=== PATIENT | female | born 1975 | race Caucasian/White ===

== ENCOUNTER → 2020-09-22 09:37 | Outpatient (BNVA) | payer OTHER, SELFPAY | PROVIDERS: Visit Provider Advanced Practice Midwife | DX: Z76.89 Persons encountering health services in other specified circumstances (principal) ==

== ENCOUNTER → 2022-05-08 09:32 | Outpatient (BNVA) | payer OTHER, SELFPAY | PROVIDERS: PCP Internal Medicine; Visit Provider Advanced Practice Midwife | DX: N90.7 Vulvar cyst (principal); N93.9 Abnormal uterine and vaginal bleeding, unspecified; R14.0 Abdominal distension (gaseous) | CPT/HCPCS: 99212 ==

== ENCOUNTER 2022-06-18 10:19 | Outpatient (REF) | payer OTHER, SELFPAY ==
--- NOTE | ~2022-06-18 | US_ITS ---
EXAMINATION: US PELVIS CLINICAL INFORMATION: Abnormal uterine and vaginal bleeding. Age 46. COMPARISON: CT pelvis 07/26/2016; pelvic ultrasound 03/25/2014 TECHNIQUE: Ultrasound of the pelvis is performed using both transabdominal and transvaginal transducers along with Doppler. Transvaginal imaging is performed due to inadequate visualization transabdominally. FINDINGS: Uterus: The uterus is anteverted and normal in size measuring 7.5 x 4.1 x 5.4 cm. Volume 87 mL. The double wall endometrial thickness is normal, measuring 3 mm. The uterus is smooth in contour. There is no exophytic fibroid. There is scattered inhomogeneous coarsening of the myometrial echotexture. No focal circumscribed fibroid associated. No venetian blind shadowing or focal myometrial cysts to confirm adenomyosis. There are some small nabothian cysts in the cervix. Adnexa: Right ovary measures 2.8 x 1.8 x 1.9 cm. Volume 5 mL. Incidental dominant follicle measuring 1.3 cm. Left ovary measures 2.9 x 2.5 x 2.5 cm. Volume 9.5 mL. There are scattered non-shadowing specular echoes in the left ovary which may suggest poorly mineralized benign dystrophic calcifications. There are some cystic foci. The area of involvement measures 2.6 x 2.0 cm. There is no definable clearly circumscribed mass in the ovary. No hypoechoic foci noted on prior ultrasound [address] 2015. There is trace physiologic fluid in cul-de-sac. No overt ascites. US/US pelvic and transvaginal IMPRESSION: Uterus: -Inhomogeneous coarsening myometrial echotexture without shadowing or myometrial cysts to confirm adenomyosis. No visible circumscribed fibroid. -Normal double wall endometrial thickness is under 4 mm. Adnexa: -Left ovary: Scattered non-shadowing specular echoes and some cystic foci without circumscribed mass. Right ovary unremarkable. No ascites. -Pelvic MRI may be helpful for further characterization of the uterus and left ovary.
--- NOTE | ~2022-06-18 | MM_ITS ---
EXAMINATION: MM DIAGNOSTIC DIGITAL BREAST TOMOSYNTHESIS, BILATERAL US DIAGNOSTIC ULTRASOUND BREAST, RIGHT CLINICAL INFORMATION: At time of screening exam, patient notes palpable areas and tenderness right breast. Implants have been placed since prior mammography 2019. TC score 7%. COMPARISON: Mammography: 10/27/2019, 10/20/2019, 04/25/2018 TECHNIQUE: Digital mammography is performed in craniocaudal and mediolateral oblique views along with computer-aided detection (CAD). Digital breast tomosynthesis is performed in implant-displaced craniocaudal and implant-displaced mediolateral oblique views along with computer-aided detection (CAD). Synthesized 2D images are generated from the tomosynthesis. Ultrasound right breast is targeted to the areas of palpable concern lower and outer quadrants. Grayscale imaging and color Doppler are performed without and with harmonics. Patient is able to point areas of clinical concern at time of imaging. FINDINGS: The breasts are heterogeneously dense, which may obscure small masses (ACR BI-RADS breast composition Category c). There is fine fibronodular parenchymal pattern similar to prior studies. There are bilateral implants, new from prior exam 2019. Implant contours are smooth. No abnormal calcifications. The axilla and skin contours are unremarkable. Left breast shows no interval mass or architectural abnormality. Right breast has smooth circumscribed mass outer quadrant corresponding to the palpable concern, the larger 1.4 cm and smaller more posterior mass measuring 0.8 cm. No architectural abnormality. Ultrasound right breast demonstrates 4 cysts, the largest corresponding to palpable concern 7:00-8:00 position mid depth measuring 1.4 x 1.2 cm. Margins are circumscribed, cyst is anechoic, increased through-transmission of sound, and no associated color flow. The next largest cyst is slightly more posterior measuring 0.8 x 0.5 cm. There are 2 smaller satellite cysts, each under 4 mm. No solid mass or architectural abnormality. Results are discussed with the patient at time of visit. MM/MM tomosynthesis diagnostic BI IMPRESSION: -No mammographic evidence of malignancy. New implants since prior exam 2019. -Simple cysts right breast corresponding to clinical concern, largest 1.4 cm. ASSESSMENT: BI-RADS 2: Benign RECOMMENDATION: Routine annual mammography screening. This patient's information was entered into a reminder system with a target due date for their next mammogram.
[2022-06-18 12:34] LABS: Hematocrit 40.6 % (37.0-47.0); Hemoglobin 13.1 g/dl (12.0-16.0); Mean Corpuscular HGB Conc 32.3 g/dl (31.0-35.0); Mean Corpuscular Volume 92.9 fL (80.0-98.0); Mean Platelet Volume 11.5 fL (9.4-12.3); Platelet Count 239 X10*3/uL (160-400); Red Blood Count 4.37 X10*6/uL (4.20-5.50); Red Cell Distribution Width 12.7 % (11.0-16.0); White Blood Count 7.8 X10*3/uL (4.8-10.8)
[2022-06-18 13:18] LABS: Thyroid Stimulating Hormone 0.97 uIU/mL (0.32-4.0)
== END 2022-06-18 10:20 | disposition home or self-care (01) ==
LOC: HO.US 10:19
PROVIDERS: PCP Internal Medicine; Visit Provider Advanced Practice Midwife
DX: N60.01 Solitary cyst of right breast (principal); N92.1 Excessive and frequent menstruation with irregular cycle; N93.9 Abnormal uterine and vaginal bleeding, unspecified; R14.0 Abdominal distension (gaseous)
CPT/HCPCS: 36415; 76642; 76830; 76856; 77062; 77063; 77066; 77067; 84443; 85027

== ENCOUNTER 2022-07-30 08:18 | Outpatient (REF) | payer OTHER, SELFPAY ==
--- NOTE | ~2022-07-30 | MR_ITS ---
EXAMINATION: MRI PELVIS WITH AND WITHOUT CONTRAST CLINICAL INFORMATION: Further evaluation of abnormalities noted in the uterus and left ovary on a recent ultrasound. COMPARISON: Pelvic ultrasound 06/18/2022. TECHNIQUE: Multiple routine MRI sequences through the pelvis were obtained on a high-field 1.5 Bibi MRI before and after the uneventful administration of 7.5 mL Gadavist gadolinium-based IV contrast. FINDINGS: UTERUS: Anteverted uterus has a normal configuration and measures 7.8 cm [id number] x 5.0 cm anterior-posterior x 5.6 cm transverse. There is scarring in the anteroinferior uterus, suggesting prior , correlate with surgical history. The junctional zone is not entirely well delineated but overall does not appear to be abnormally thickened. No focal uterine mass seen. The endometrium measures up to 0.6 cm in thickness. CERVIX: Subcentimeter nabothian cysts. VAGINA: Normal; no mass seen. OVARIES: Ovaries are symmetric in size. In the left ovary, there is a nonspecific 1.8 x 1.2 cm T2 dark observation (7:8) that it is isointense to the ovarian stroma on T1 precontrast images, and demonstrates some subtle hyper enhancement when compared to the adjacent stroma on postcontrast images (9:12). In the left ovary, there is a subtle T2 bright avascular simple cyst (7:8), for which no imaging follow-up is recommended. In the right ovary, there is a 1.3 cm T2 bright lesion (7:8) with a peripheral T2 dark rim and signal hyperintensity on T1 precontrast images, nonspecific but possibly representing a hemorrhagic cyst or adenomyoma. Additionally, in the right ovary, there is a 1.3 cm T2 bright avascular cyst (7:9) and a 1.6 cm rim-enhancing corpus luteal cyst (9:13) for which no further imaging follow-up is recommended. KIDNEYS: Two normally positioned kidneys are seen. No hydronephrosis. There are couple of subcentimeter T2 bright cortical observations in the right kidney, likely representing simple cysts but incompletely characterized in this examination, only visualized in the large ngqle-jd-alwg coronal T2 images. BLADDER: Urinary bladder normal. PELVIC FREE FLUID: Trace amount of free fluid, likely physiologic. LYMPH NODES: No pathologically enlarged lymph nodes. OSSEOUS STRUCTURES: No acute or suspicious osseous abnormalities. MR/MR pelvis wo/w con IMPRESSION: Nonspecific T2 dark observation in the left ovary with some questionable mild hyperenhancement compared to the parenchyma on postcontrast images. This could represent some sort of fibrous lesion such as fibroma/fibrothecoma or just a normal variation of the parenchyma. Recommend a short-term follow-up to reassess. Nonspecific 1.3 cm T1 bright precontrast lesion in the right ovary with T2 bright signal and a peripheral T2 dark rim, suggesting the presence of an endometrioma. Alternatively, could potentially represent a hemorrhagic cyst. Recommend as well a follow-up examination to reassess.
== END 2022-07-30 08:19 | disposition home or self-care (01) ==
LOC: HO.MRI 08:18
PROVIDERS: Visit Provider Advanced Practice Midwife
DX: R93.89 Abnormal findings on diagnostic imaging of other specified body structures (principal)
CPT/HCPCS: 72197; A9585

== ENCOUNTER 2022-08-19 13:39 | Outpatient (REF) | payer OTHER, SELFPAY ==
[2022-08-19 17:07] LABS: CT PCR NOT DETECTED (Not Detect.); NG PCR NOT DETECTED (Not Detect.)
[2022-08-20 12:20] LABS: BV Int Neg Control Negative (Negative); BV Int Pos Control Positive (Positive)
[2022-08-21 12:06] LABS: CA-125 15 U/mL (<35)
[2022-08-23 01:12] LABS: HPV mRNA E6/E7 rflx Not Detected (Not Detected)
== END 2022-08-19 13:40 | disposition home or self-care (01) ==
LOC: HO.LNP 13:39
PROVIDERS: Visit Provider Advanced Practice Midwife
DX: Z01.411 Encounter for gynecological examination (general) (routine) with abnormal findings (principal); Z11.51 Encounter for screening for human papillomavirus (HPV); N89.8 Other specified noninflammatory disorders of vagina; N93.9 Abnormal uterine and vaginal bleeding, unspecified; N83.299 Other ovarian cyst, unspecified side; R14.0 Abdominal distension (gaseous); K61.0 Anal abscess
CPT/HCPCS: 86304; 87480; 87491; 87510; 87591; 87624; 87660; 88142; 99212

== ENCOUNTER 2022-08-19 13:53 | Outpatient (REF) | payer OTHER, SELFPAY | END 2022-08-19 13:54 | disposition home or self-care (01) | LOC: HO.LAB 13:53 | PROVIDERS: PCP Internal Medicine; Visit Provider Advanced Practice Midwife | DX: Z13.89 Encounter for screening for other disorder (principal) ==

== ENCOUNTER → 2022-08-21 09:53 | Outpatient (BNVA) | payer OTHER, SELFPAY | PROVIDERS: PCP Internal Medicine; Referring Provider Advanced Practice Midwife; Visit Provider Surgery | DX: K61.0 Anal abscess (principal) | CPT/HCPCS: 99202 ==

== ENCOUNTER 2023-06-12 09:18 | Outpatient (REF) | payer OTHER, SELFPAY ==
[2023-06-12 11:14] LABS: MANUAL DIFF FLAG NO
[2023-06-12 11:33] LABS: Basophils Absolute Auto 0.1 X10*3/uL (0.0-0.2); Basophils Percent Auto 0.7 % (0-2); Eosinophils Absolute Auto 0.1 X10*3/uL (0.0-0.4); Eosinophils Percent Auto 1.3 % (0-4); Hematocrit 43.2 % (37.0-47.0); Hemoglobin 14.1 g/dl (12.0-16.0); Imm Gran Abs Auto 0.01 X10*3/uL (0.00-0.03); Imm Gran Pct Auto 0.1 % (0.0-0.4); Lymphocytes Absolute Auto 1.5 X10*3/uL (1.2-4.9); Lymphocytes Percent Auto 22.4 % (20-40); Mean Corpuscular HGB Conc 32.6 g/dl (31.0-35.0); Mean Corpuscular Hemoglobin 30.2 pg (27.0-33.0); Mean Corpuscular Volume 92.5 fL (80.0-98.0); Mean Platelet Volume 11.3 fL (9.4-12.3); Monocytes Absolute Auto 0.6 X10*3/uL (0.1-1.2); Monocytes Percent Auto 8.2 % (2-11); Neutrophils Absolute Auto 4.6 x10*3/uL (2.0-8.3); Neutrophils Percent Auto 67.3 % (45-73); Platelet Count 253 X10*3/uL (160-400); Red Blood Count 4.67 X10*6/uL (4.20-5.50); Red Cell Distribution Width 12.7 % (11.0-16.0); White Blood Count 6.9 X10*3/uL (4.8-10.8)
[2023-06-12 12:08] LABS: Alanine Aminotransferase 15 U/L (0-31); Anion Gap 10 (12-20); Aspartate Amino Transferase 18 U/L (5-31); Blood Urea Nitrogen 12 mg/dL (9-16); Calcium 9.2 mg/dL (8.4-10.2); Carbon Dioxide 27 mmol/L (22-29); Chloride 108 mmol/L (96-108); Cholesterol 226 mg/dL; Estimated Glomerular Filt Rate > 60; Glucose Fasting 101 mg/dL (60-99); HDL Cholesterol 61 mg/dL; LDL Cholesterol Calculated 133 mg/dl; Potassium 4.2 mmol/L (3.3-5.1); Sodium 141 mmol/L (135-145); Triglycerides 163 mg/dL
[2023-06-12 12:26] LABS: TSH reflex Free T4 0.89 uIU/mL (0.32-4.0); Vitamin D 25-OH Total 44.4 ng/mL (>30)
[2023-06-12 13:17] LABS: Folate 7.9 ng/mL (> or = 4.0); Vitamin B12 443 pg/mL (200-900)
== END 2023-06-12 09:19 | disposition home or self-care (01) ==
LOC: HO.HMGCLDS 09:18
PROVIDERS: PCP Internal Medicine; Visit Provider Internal Medicine
DX: Z00.01 Encounter for general adult medical examination with abnormal findings (principal); R10.2 Pelvic and perineal pain; L98.9 Disorder of the skin and subcutaneous tissue, unspecified; R00.2 Palpitations; E66.9 Obesity, unspecified; Z87.42 Personal history of other diseases of the female genital tract
CPT/HCPCS: 36415; 80048; 80061; 81003; 81025; 82306; 82607; 82746; 83735; 84443; 84450; 84460; 85025; 99212

== ENCOUNTER 2023-06-12 13:20 | Outpatient (AMB) | payer OTHER, SELFPAY ==
[2023-06-12 13:26] VITALS: BMI 33.8
--- NOTE | 2023-06-12 13:26 | A.OFFVIS_ITS ---
Intake Vital Signs 06/12/23 13:26 Height 5 ft 2 in Weight 185 lb BMI 33.8 Intake Visit Reasons: referral follow up/DO NOT RS/45 Intake Note: The patient agreed to use of a director of graduate medical education during this encounter. Scribed for ORTIZ Lomeli by Lidia Sheth, director of graduate medical education, on 06/12/2023 at 1:54 Pm EST. Allergies morphine [MORPHINE] Allergy (Mild, Verified 06/12/23 13:27) RASH, hives metronidazole [Flagyl] Allergy (Unknown, Verified 06/12/23 13:27) shaking,dizziness, vision changes Is last menstrual period known: Yes Last menstrual period: 03/15/23 HPI HPI Comments History of Present Illness Details She is here for a follow up and discuss lab results. Admits severe abdominal bloating, has not had her menses since March, and has taken test; neg She also admits pelvic pain, mood swings, fatigue, constipation, diarrhea, and increased food intake. Denies hot flashes. Reports every other month her menses alternating 5-8 days medium-heavy and 4 days regular flow. Currently sexually active and is not using BC because she thought she was not at risk for . Previously referred to [facility] last year for endometriosis, she did not have a consult as she was told they did not have any records and did not know why she was there. She does not want to go to the same center again. [facility] Medical History Abnormal MRI, pelvis Abnormal pelvic ultrasound Ectopic Endometriosis Genital herpes History of ovarian cyst Immunization refused Intermittent palpitations Miscarriage of left tubal ectopic Obesity Pelvic pain Perianal abscess Renal calculi Surgical History H/O abdominoplasty H/O breast augmentation H/O gastric sleeve History of endometrial ablation History of loop electrical excision procedure (LEEP) Hx of cholecystectomy Hx of dilation and curettage Family History Maternal Grandmother History of breast cancer Father Substance use disorder Mental health disorder Mother Substance use disorder Mental health disorder Paternal Uncle Substance use disorder Mental health disorder Maternal Uncle Substance use disorder Mental health disorder Maternal Uncle Substance use disorder Mental health disorder Maternal Uncle Substance use disorder Mental health disorder Social History Housing: House Alcohol intake: never Patient Tobacco Use Status: Never used Tobacco e-Cigarette/Vaping Use: Never Used Second Hand Smoke Exposure: Yes service: No Current occupational status: unemployed Sexual orientation: Straight/Heterosexual Gender identity: Female Cognitive needs: No Hearing needs: No Vision needs: Yes Female Reproductive History Menstrual Age of Menarche: 12 Date of last menstrual period: 03/15/23 Physical Exam Vital Signs: BMI result Body Mass Index 33.8 Const General: cooperative, healthy appearing, comfortable, no acute distress, well developed, alert and awake GI Other: left tubal ligation scarring Results AMB Urinalysis, Automated UA Leukoctes 0 Cole/uL Last Edit by NARINDER Landon on 06/12/23 13:49 UA Nitrite Negative Last Edit by NARINDER Landon on 06/12/23 13:49 UA Urobilinogen 0 mg/dL Last Edit by NARINDER Landon on 06/12/23 13:4 9 UA Protein 0 mg/dL Last Edit by NARINDER Landon on 06/12/23 13:49 UA pH 8.0 Last Edit by NARINDER Landon on 06/12/23 13:49 UA Blood 0 Kurtis/uL Last Edit by NARINDER Landon on 06/12/23 13:49 UA Specific [place] 1.010 Last Edit by NARINDER Landon on 06/12/23 13:49 UA Ketone Negative Last Edit by NARINDER Landon on 06/12/23 13:49 UA Bilirubin 0 mg/dL Last Edit by NARINDER Landon on 06/12/23 13:49 UA Glucose 0 mg/dL Last Edit by NARINDER Landon on 06/12/23 13:49 AMB Test Urine AMB Test Urine Negative Last Edit by NARINDER Landon on 06/12/23 14:23 Results Reviewed Results Reviewed: Laboratory Last Values Urine pH (Auto) 8.0 06/12/23 13:48 Specific [place] (Auto) 1.010 06/12/23 13:48 Urine Protein (Auto) 0 mg/dL 06/12/23 13:48 Glucose (UA)(Auto) 0 mg/dL 06/12/23 13:48 Urine Ketones (Auto) Negative 06/12/23 13:48 Urine Blood (Auto) 0 Kurtis/uL 06/12/23 13:48 Urine Nitrite (Auto) Negative 06/12/23 13:48 Urine Bilirubin (Auto) 0 mg/dL 06/12/23 13:48 Urine Urobilinogen (Auto) 0 mg/dL 06/12/23 13:48 Leukocyte Esterase (Auto) 0 Cole/uL 06/12/23 13:48 Tst Clinic Negative 06/12/23 14:22 Laboratory Tests 06/12/23 09:22 Fasting Glucose 101 H ADDENDUMAs stated in the original report, the endometrium measures up to 0.6 cm in thickness. In a postmenopausal patient this is considered abnormal thickening and correlation with direct visualization and possibly tissue sampling could be obtained to rule out hyperplasia/neoplasia. In a premenopausal patient, this is within normal limits. Recommend correlation with menstrual history. The report will be called to the ordering clinician by a [place] Radiology Physician Interface Control Officer. Addendum Dictated By: Mallika Roberts Addendum Signed By: <Electronically signed by Mallika Roberts in OV> 07/31/221718 Addendum Cosigned By: DD/ TD/TT: / EXAMINATION: MRI PELVIS WITH AND WITHOUT CONTRAST CLINICAL INFORMATION: Further evaluation of abnormalities noted in the uterus and left ovary on a recent ultrasound. COMPARISON: Pelvic ultrasound 06/18/2022.? TECHNIQUE: Multiple routine MRI sequences through the pelvis were obtained on a high-field 1.5 Bibi MRI before and after the uneventful administration of 7.5 mL Gadavist gadolinium-based IV contrast. FINDINGS: UTERUS:? Anteverted uterus has a normal configuration and measures 7.8 cm itjnpa-rm-xgijqm x 5.0 cm anterior-posterior x 5.6 cm transverse. There is scarring in the anteroinferior uterus, suggesting prior , correlate with surgical history. The junctional zone is not entirely well delineated but overall does not appear to be abnormally thickened. No focal uterine mass seen. The endometrium measures up to 0.6 cm in thickness. CERVIX: Subcentimeter nabothian cysts. VAGINA: Normal; no mass seen. OVARIES: Ovaries are symmetric in size. In the left ovary, there is a nonspecific 1.8 x 1.2 cm T2 dark observation (7:8) that it is isointense to the ovarian stroma on T1 precontrast images, and demonstrates some subtle hyper enhancement when compared to the adjacent stroma on postcontrast images (9:12). In the left ovary, there is a subtle T2 bright avascular simple cyst (7:8), for which no imaging follow-up is recommended. In the right ovary, there is a 1.3 cm T2 bright lesion (7:8) with a peripheral T2 dark rim and signal hyperintensity on T1 precontrast images, nonspecific but possibly representing a hemorrhagic cyst or adenomyoma. Additionally, in the right ovary, there is a 1.3 cm T2 bright avascular cyst (7:9) and a 1.6 cm rim-enhancing corpus luteal cyst (9:13) for which no further imaging follow-up is recommended. KIDNEYS: Two normally positioned kidneys are seen. No hydronephrosis. There are couple of subcentimeter T2 bright cortical observations in the right kidney, likely representing simple cysts but incompletely characterized in this examination, only visualized in the large jxuwr-ha-lyzh coronal T2 images. BLADDER: Urinary bladder normal. PELVIC FREE FLUID: Trace amount of free fluid, likely physiologic. LYMPH NODES: No pathologically enlarged lymph nodes. OSSEOUS STRUCTURES: No acute or suspicious osseous abnormalities. MR/MR pelvis wo/w con IMPRESSION: Nonspecific T2 dark observation in the left ovary with some questionable mild hyperenhancement compared to the parenchyma on postcontrast images. This could represent some sort of fibrous lesion such as fibroma/fibrothecoma or just a normal variation of the parenchyma. Recommend a short-term follow-up to reassess. ? Nonspecific 1.3 cm T1 bright precontrast lesion in the right ovary with T2 bright signal and a peripheral T2 dark rim, suggesting the presence of an endometrioma. Alternatively, could potentially represent a hemorrhagic cyst. Recommend as well a follow-up examination to reassess. Assessment & Plan Assessment & Plan (1) Encounter to discuss test results: Code(s): Z71.2 - Person consulting for explanation of examination or test findings Plan: Discussed: Maintaining a healthy lifestyle including a well balanced diet and routine exercise to help maintain glucose levels. Maintain sleep hygiene. Follow up with PCP regarding lab work and referring to GI specialist regarding GI issues. Counseled re: perimenopause vs menopause. US for pelvic pain, hx of ovarian cysts. Mammogram ordered. Encouraged to use condoms prevention. If missed menses take at home test Encouraged patient to sign up for patient portal. All of her questions and concerns were addressed to the best of my ability and shared decision making. She is agreeable to plan of care. (2) Pelvic pain: Code(s): R10.2 - Pelvic and perineal pain (3) History of ovarian cyst: Code(s): Z87.42 - Personal history of other diseases of the female genital tract Orders: Orders US OB pelvic and transvaginal Today R10.2 - Pelvic and perineal pain MM tomosynthesis screening BI Today Z12.31 - Encounter for screening mammogram for malignant neoplasm of breast AMB Urinalysis Automated Today Z13.9 - Encounter for screening, unspecified AMB HCG Urine Test Today Z32.02 - Encounter for test, result negative Coding Level of Care Code Est Pt Level 3 (49827) Diagnoses Encounter to discuss test results Z71.2 Pelvic pain R10.2 History of ovarian cyst Z87.42
== END 2023-06-12 15:03 | disposition home or self-care (01) ==
LOC: HO.HWS 13:20
PROVIDERS: PCP Internal Medicine; Visit Provider Advanced Practice Midwife
DX: Z71.2 Person consulting for explanation of examination or test findings (principal); R10.2 Pelvic and perineal pain; Z87.42 Personal history of other diseases of the female genital tract; Z32.02 Encounter for pregnancy test, result negative
CPT/HCPCS: 99213

== ENCOUNTER → 2023-07-29 07:25 | Outpatient (BNVA) | payer OTHER, SELFPAY | PROVIDERS: PCP Internal Medicine; Visit Provider Advanced Practice Midwife | DX: Z01.818 Encounter for other preprocedural examination (principal); K59.09 Other constipation; R14.0 Abdominal distension (gaseous) | CPT/HCPCS: 99202; 99212 ==

== ENCOUNTER 2023-07-29 10:54 | Outpatient (AMB) | payer OTHER, SELFPAY ==
--- NOTE | 2023-07-29 10:55 | A.OFFVIS_ITS ---
Intake Vital Signs 07/29/23 10:57 Height 5 ft 2 in Weight 188 lb BMI 34.4 BP 118/74 Blood Pressure Location Lt brachial Position Sitting Pulse 74 Intake Visit Reasons: pre colonoscopy Intake Note: Patient new consult for 1st pre colonoscopy screening. Patient cc: abdominal bloating and constipation, denies any other GI issues. Machine Programmer Required: No Accompanied by: Self / Same As Patient Allergies morphine [MORPHINE] Allergy (Mild, Verified 07/29/23 10:55) RASH, hives metronidazole [Flagyl] Allergy (Unknown, Verified 07/29/23 10:55) shaking,dizziness, vision changes HPI HPI Comments History of Present Illness Details A 48 y/o female referred for index screening colonoscopy, she has somewhat of an alternating stool pattern mostly constipation of late. She is not following any regimen. She does admit to stress Constipation, bloating-she follows with auto service instructor She has a good appetite, No nausea, vomiting hematemesis, hematochezia fevers chills PFSH Medical History Abnormal MRI, pelvis Abnormal pelvic ultrasound Ectopic Endometriosis Genital herpes History of ovarian cyst Immunization refused Intermittent palpitations Miscarriage of left tubal ectopic Obesity Pelvic pain Perianal abscess Renal calculi Surgical History H/O abdominoplasty H/O breast augmentation H/O gastric sleeve History of endometrial ablation History of loop electrical excision procedure (LEEP) Hx of cholecystectomy Hx of dilation and curettage Family History Maternal Grandmother History of breast cancer Father Substance use disorder Mental health disorder Mother Substance use disorder Mental health disorder Paternal Uncle Substance use disorder Mental health disorder Maternal Uncle Substance use disorder Mental health disorder Maternal Uncle Substance use disorder Mental health disorder Maternal Uncle Substance use disorder Mental health disorder Social History Housing: House Alcohol intake: never Patient Tobacco Use Status: Never used Tobacco e-Cigarette/Vaping Use: Never Used Second Hand Smoke Exposure: Yes service: No Current occupational status: unemployed Sexual orientation: Straight/Heterosexual Gender identity: Female Cognitive needs: No Hearing needs: No Vision needs: Yes Female Reproductive History Menstrual Age of Menarche: 12 Review of Systems Const All systems reviewed & are unremarkable except as noted in HPI and below Card Denies chest pain and Denies dyspnea Resp Denies dyspnea GI Denies abdominal pain, Reports bloating, Denies nausea and Denies vomiting Physical Exam Vital Signs: Last Vital Signs Pulse 74 07/29/23 10:57 BP 118/74 07/29/23 10:57 BMI result Body Mass Index 34.4 Very pleasant 48-year-old female alert and oriented no acute distress Anicteric Cardiovascular, regular rate rhythm no murmurs noted Lungs, clear to auscultation bilaterally no wheezes or also rhonchi Abdomen, positive bowel sounds soft nontender Extremities, no edema clubbing or cyanosis Skin, no rash Psych Appearance: grossly normal and well kempt Mental Status: mental status grossly normal Speech and movement: Normal speech and movement present and Clear speech present Affect: normal affect Attitude: cooperative Thought process: Normal thought process present Thought content: Normal thought content present Insight: Good insight present (Psych) Judgement: Good judgement present (Psych) Assessment & Plan Assessment & Plan (1) Chronic constipation: Code(s): K59.09 - Other constipation Plan: Consistent bowel regimen Maintain high-fiber diet (2) Bloating symptom: Comment: Continue to follow with auto service instructor Code(s): R14.0 - Abdominal distension (gaseous) Plan: FODMAP (3) Encounter for screening colonoscopy: Code(s): Z12.11 - Encounter for screening for malignant neoplasm of colon Plan: Index screening colonoscopy MiraLax Gatorade split Orders: Orders Colonoscopy - GI Use Only Today Z12.11 - Encounter for screening for malignant neoplasm of colon Medications: New bisacodyl (Dulcolax (bisacodyl)) Take 4 tablets by mouth at 12:00pm the day before your procedure. 20 mg (4 x 5 mg) PO ONCE 1 day 4 tabs 0RF colonoscopy prep Z12.11 - Encounter for screening for malignant neoplasm of colon polyethylene glycol 3350 (Miralax) Take as directed by mouth the day before your procedure. 238 grams PO ONCE 1 day PRN 238 grams 0RF laxative effect methylcellulose (laxative) (Citrucel) 500 mg PO TID 30 days 90 tabs 5RF sennosides (senna) 8.6 mg PO DAILY 30 caps 1RF constipation Patient Instructions: Index screening colonoscopy MiraLax Gatorade split per Consistent bowel regimen Literature given on FODMAP Courage to call questions or concerns Appreciate the opportunity assist in the care pleasant patient Coding Level of Care Code New Pt Level 3 (15881) Diagnoses Chronic constipation K59.09 Bloating symptom R14.0 Encounter for screening colonoscopy Z12.11 Time Spent (min) 35
[2023-07-29 10:57] VITALS: BP 118/74; PULSE 74; BMI 34.4
== END 2023-07-29 14:46 | disposition home or self-care (01) ==
LOC: HO.HGIW 10:54
PROVIDERS: PCP Internal Medicine; Visit Provider Physician Assistant
DX: K59.09 Other constipation (principal); R14.0 Abdominal distension (gaseous); Z12.11 Encounter for screening for malignant neoplasm of colon
CPT/HCPCS: 99203

== ENCOUNTER 2023-08-01 13:20 | Day surgery (SDC) | payer OTHER, SELFPAY ==
[2023-08-01 13:36] VITALS: BP 123/88; PULSE 90; RESP 16; TEMP 36.8; O2SAT 99; BMI 33.3
[2023-08-01 13:37] LABS: UPreg QC Valid YES; Urine Pregnancy NEGATIVE (NEGATIVE)
--- NOTE | 2023-08-01 13:42 | HO.ANESPROP2 ---
[facility] Active Problems Active Problems: All Active Problems (Updated 07/29/23 @ 11:46 by Elizabeth Gimenez PA-C) Bloating symptom (Acute) Encounter for screening colonoscopy (Acute) Chronic constipation (Acute) History of ovarian cyst (Acute) Pelvic pain (Acute) Immunization refused (Acute) Obesity (Acute) Intermittent palpitations (Acute) Abnormal MRI, pelvis (Acute) Abnormal pelvic ultrasound (Acute) Past Medical History Medical History Abnormal MRI, pelvis Abnormal pelvic ultrasound Ectopic Endometriosis Genital herpes History of ovarian cyst Immunization refused Intermittent palpitations Miscarriage of left tubal ectopic Obesity Pelvic pain Perianal abscess Renal calculi Family History Family History Maternal Grandmother History of breast cancer Father Substance use disorder Mental health disorder Mother Substance use disorder Mental health disorder Paternal Uncle Substance use disorder Mental health disorder Maternal Uncle Substance use disorder Mental health disorder Maternal Uncle Substance use disorder Mental health disorder Maternal Uncle Substance use disorder Mental health disorder Surgical History Surgical History H/O abdominoplasty H/O breast augmentation H/O gastric sleeve History of endometrial ablation History of loop electrical excision procedure (LEEP) Hx of cholecystectomy Hx of dilation and curettage History of Problems with Anesthesia: No Social History Social History Housing: House Alcohol intake: never Patient Tobacco Use Status: Never used Tobacco e-Cigarette/Vaping Use: Never Used Second Hand Smoke Exposure: Yes Use of substances other than those prescribed or required for medical reasons: No Are you DNR?: No Advance Directives: No Advance Directives Information Provided: Yes service: No Current occupational status: unemployed Sexual orientation: Straight/Heterosexual Gender identity: Female Cognitive needs: No Hearing needs: No Vision needs: Yes Meds Allergies Allergy/AdvReac Type Severity Reaction Status Date / Time morphine [MORPHINE] Allergy Mild RASH, hives Verified 08/01/23 13:35 metronidazole [Flagyl] Allergy Unknown shaking,dizziness, Verified 08/01/23 13:35 vision changes Active Medications: Current Medications Lactated Ringer's (Lr) 1,000 mls @ 50 mls/hr IVCONT .Q20H SUZY Exam Exam Date and Time: August 01, 2023 1342 Height,Weight and Vital Signs: Height 5 ft 2 in Weight 82.554 kg Last Vital Signs Temp 98.2 F 08/01/23 13:36 Pulse 90 08/01/23 13:36 Resp 16 08/01/23 13:36 BP 123/88 08/01/23 13:36 Pulse Ox 99 08/01/23 13:36 Pertinent Lab Results Pertinent Lab Results: Laboratory Tests 08/01/23 13:25 Urine Test NEGATIVE Airway Mallampati Class: II TM Dist: >3cm Neck ROM: Full Loose/Missing/Broken Teeth: No Heart: RRR Lungs: CTA Assessment and Plan Assessment Anesthesia Assessment: Anesthesia Plan Discussed and Chart Reviewed Final Anesthetic Review History of Problems with Anesthesia: No NPO: Yes ASA Class: II Final Preanesthetic Review: Meds/Allgs Chart Reviewed, Consent Obtained/Reviewed and Anes Risks/Benef Reviewed Patient Risk: Low Procedure Risk: Low Anesthetic Plan Anesthetic Plan: MAC: Disposition: Standard PACU
[2023-08-01] MEDS: Lactated Ringers 1,000 ML 50 ML IVCONT (13:53)
--- NOTE | 2023-08-01 14:12 | MHC.SHP ---
Pre-Procedural Eval Section A Date of Service: 08/01/23 The patient is an INPATIENT: No Changes since office visit: Yes Patient answered all questions; No Cold of Flu in the past 2 weeks, No New Medical Problems and No Changes in Medication The History & Physical has been completed within 30 days and I have reviewed it.: Yes Section B Chief Complaint: screening Allergies: Allergies Allergy/AdvReac Type Severity Reaction Status Date / Time morphine [MORPHINE] Allergy Mild RASH, hives Verified 08/01/23 13:35 metronidazole [Flagyl] Allergy Unknown shaking,dizziness, Verified 08/01/23 13:35 vision changes Plan I have reviewed the history and physical and performed a pertinent physical examination on my patient. No changes have occurred unless specified. Time Spent With Patient Time: Total time managing care of this patient today ____ minutes.
--- NOTE | 2023-08-01 14:19 | W.PM.OPN ---
Operative Note Operative Note Date of Service: 08/01/23 Narrative: COLONOSCOPY TILL CECUM WITH BIOPSIES Pre-op diagnosis: Colon cancer screening, chronic constipation Post-op diagnosis:? Colon polyp, diverticulosis Endoscopist:? Daniel Sheehan MD Anesthesia:?MAC Consent: Indications for the procedure and potential complications of bleeding, perforation, reaction to medications and missed diagnosis were discussed with the patient and informed consent was obtained. Instrument: Olympus PCF H 190 L variable stiffness pediatric colonoscope Monitoring: Vital signs and clinical assessment, intermittent blood pressure monitoring, continuous EKG monitoring, Pulse oximetry and Carbon Dioxide monitoring were done throughout the procedure. Please see anesthesia flowsheet. Colon withdrawl time was 20 minutes. Procedure: The patient was placed in the left lateral decubitis position and pre-procedure medications were administered. After a digital rectal examination of the ano-rectum, the video colonoscope was inserted into the rectum and advanced through the colon to the cecum. The colonoscope was slowly withdrawn in a retrograde panoramic fashion and the colon mucosa was carefully examined including a retroflexed view of the rectum. Findings and interventions are described below. Procedure Difficulty: Colon was long and tortuous and there was some loop formation Findings: Terminal Ileum: Not evaluated Cecum: Normal Ascending Colon: Scattered moderate diverticulosis throughout the entire colon Transverse Colon: Scattered moderate diverticulosis throughout the entire colon Descending Colon: Scattered moderate diverticulosis throughout the entire colon Sigmoid Colon: A 5-6 mm diminutive appearing polyp - removed with a cold biopsy. Moderate diverticulosis Rectum: Normal Ano-rectum: Normal Colon preparation: Good Impression and Post Procedure Diagnosis: Colonoscopy Findings: One small polyp removed Moderate diverticulosis seen in the entire colon Plan: Await pathology results Patient has an appointment on 08/12/23 in the GI Clinic with JANINE Johns . Repeat Colonoscopy interval based on path results - in 5 years if polyps are adenomatous and 10 years if polyps are hyperplastic. (adult colonoscopy for future colonoscopies). Above findings were reviewed with the patient and colon polyps and diverticulosis handouts were given in the discharge area
[2023-08-01 15:05] VITALS: BP 89/58; PULSE 64; RESP 12; TEMP 36.6; O2SAT 100
[2023-08-01 15:20] VITALS: BP 99/60; PULSE 64; RESP 16; O2SAT 98
[2023-08-01 15:35] VITALS: BP 95/62; PULSE 55; RESP 16; O2SAT 99
[2023-08-01 15:50] VITALS: BP 101/67; PULSE 62; RESP 18; TEMP 36.6; O2SAT 99
== END 2023-08-01 16:07 | disposition home or self-care (01) ==
PROVIDERS: Anesthesiology; PCP Internal Medicine; Visit Provider Internal Medicine Gastroenterology
PROC: 0DJD8ZZ Inspection of Lower Intestinal Tract, Via Natural or Artificial Opening Endoscopic (ICD-10-PCS; CPT 45378; principal; 2023-08-01 13:40)
DX: Z12.11 Encounter for screening for malignant neoplasm of colon (principal); K63.5 Polyp of colon; K57.30 Diverticulosis of large intestine without perforation or abscess without bleeding; K59.09 Other constipation; Z98.84 Bariatric surgery status; Z90.49 Acquired absence of other specified parts of digestive tract; Z79.899 Other long term (current) drug therapy
CPT/HCPCS: 45380; 81025; 88305; J2250

== ENCOUNTER → 2023-08-01 13:20 | Outpatient (BNV) | payer OTHER, SELFPAY | PROVIDERS: PCP Internal Medicine; Visit Provider Internal Medicine Gastroenterology | DX: Z12.11 Encounter for screening for malignant neoplasm of colon (principal); K63.5 Polyp of colon; K57.90 Diverticulosis of intestine, part unspecified, without perforation or abscess without bleeding; K59.04 Chronic idiopathic constipation | CPT/HCPCS: 45380 ==

== ENCOUNTER 2023-09-03 09:47 | Outpatient (REF) | payer OTHER, SELFPAY ==
[2023-09-04 12:33] LABS: BV Int Neg Control Negative (Negative); BV Int Pos Control Positive (Positive)
== END 2023-09-03 09:48 | disposition home or self-care (01) ==
LOC: HO.LNP 09:47
PROVIDERS: PCP Internal Medicine; Visit Provider Advanced Practice Midwife
DX: Z01.419 Encounter for gynecological examination (general) (routine) without abnormal findings (principal); N83.202 Unspecified ovarian cyst, left side; N89.8 Other specified noninflammatory disorders of vagina
CPT/HCPCS: 87480; 87510; 87660; 99396

== ENCOUNTER 2023-09-03 09:47 | Outpatient (AMB) | payer OTHER, SELFPAY ==
--- NOTE | 2023-09-03 10:16 | MHC.OFFVIS ---
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 Doing well with no disintegrator operator concerns. Patient admits she tries to eat a healthy diet including Calcium and Vitamin D. She stays active with exercise. Reports not having a menses for 3 months then returned in August but has not had a menses for August as yet. Is experiencing bloating. Reports GI specialist recommend a high fiber diet. Reports she HSV lesion today and had not had a episode for many years; does not have ant medications on hand. Reports no changes with naomi on right breast and has had it her whole life. Currently not sexually active. Admits vaginal itching. STD screening offered; Declined. Denies family hx of breast, colon and ovarian cancer. Hx of LEEP 20 years ago per pt. LEEP 2007 per notes in [facility] in 2013. Abnormal US/MRI-2021, missed appt. for follow up. Last pap smear 08/19/22. Last mammogram 06/18/22. Missed last appt. 07/2023. UTD on colonoscopy. [facility] Medical History (Updated 09/03/23 @ 12:41 by Renee Savage CNM) Abnormal Pap smear of cervix Miscarriage of left tubal ectopic History of ovarian cyst Pelvic pain Immunization refused Obesity Intermittent palpitations Perianal abscess Abnormal MRI, pelvis Renal calculi Endometriosis Abnormal pelvic ultrasound Ectopic Genital herpes Surgical History (Updated 09/03/23 @ 11:05 by Lidia Sheth) History of left oophorectomy Hx of colonoscopy H/O abdominoplasty History of endometrial ablation History of loop electrical excision procedure (LEEP) H/O breast augmentation H/O gastric sleeve Hx of dilation and curettage Hx of cholecystectomy Family History Maternal Grandmother History of breast cancer Father Substance use disorder Mental health disorder Mother Substance use disorder Mental health disorder Paternal Uncle Substance use disorder Mental health disorder Maternal Uncle Substance use disorder Mental health disorder Maternal Uncle Substance use disorder Mental health disorder Maternal Uncle Substance use disorder Mental health disorder Social History Housing: House Alcohol intake: never Patient Tobacco Use Status: Never used Tobacco e-Cigarette/Vaping Use: Never Used Second Hand Smoke Exposure: Yes service: No Current occupational status: unemployed Sexual orientation: Straight/Heterosexual Gender identity: Female Cognitive needs: No Hearing needs: No Vision needs: Yes Female Reproductive History Menstrual Age of Menarche: 12 Duration of menses: 6-7 days control method: none Total pregnancies: 5 Full term: 3 Number of Living Children: 3 Ab spontaneous: 1 Ectopics: 1 Date of last pap smear: 08/19/22 (negative) History of abnormal pap smear: Yes Date of Mammogram: 06/18/22 Physical Exam Vital Signs: Last Vital Signs BP 124/80 09/03/23 10:19 BMI result Body Mass Index 34.4 Const General: cooperative, healthy appearing, no acute distress, well developed and alert Orientation/consciousness: patient oriented x3 HEENT Head: Yes normal to inspection Eyes General: appearance normal, both eyes and all related structures Neck Neck: Yes normal visual inspection Thyroid: Thyroid normal Chest Other: breast reduction scarring right breast brown naomi at 5:00 Chest palpation & inspection: normal inspection of the chest Breast/axilla inspection: normal inspection of the breasts (no puckering, dimpling, peau de orange, retraction, discharge, masses) Breast/axilla palpation: normal palpation of the breasts Resp Effort & Inspection: normal respiratory effort GI Other: abdominoplasty scarring Inspection: Yes normal to inspection Palpation (GI): Soft to palpation (to palpation) Rectal Exam - Female: deferred General: Yes bladder normal to inspection External Female Exam: normal external appearance, normal appearance of the urethra and other (2mm lesion periclitoral HSV lesion-healing) Speculum Exam - Vagina: normal appearance of the vagina, normal palpation and abnormal vaginal discharge white (thick, milky) Speculum Exam - Cervix: normal appearance of the cervix and normal palpation Bimanual exam- vagina & uterus: normal palpation, normal palpation and other (post LEEP appearance) Bimanual Exam- Adnexa, other: normal adnexae and no masses Skin General skin exam: no rashes or lesions noted Neuro General: patient oriented x3 Cognition (Neuro): normal cognition Extrem General: Yes normal to inspection Psych Attitude: cooperative Thought process: Normal thought process present Results Reviewed Results Reviewed: EXAMINATION: MRI PELVIS WITH AND WITHOUT CONTRAST CLINICAL INFORMATION: Further evaluation of abnormalities noted in the uterus and left ovary on a recent ultrasound. COMPARISON: Pelvic ultrasound 06/18/2022. TECHNIQUE: Multiple routine MRI sequences through the pelvis were obtained on a high-field 1.5 Bibi MRI before and after the uneventful administration of 7.5 mL Gadavist gadolinium-based IV contrast. FINDINGS: UTERUS: Anteverted uterus has a normal configuration and measures 7.8 cm [id number] x 5.0 cm anterior-posterior x 5.6 cm transverse. There is scarring in the anteroinferior uterus, suggesting prior , correlate with surgical history. The junctional zone is not entirely well delineated but overall does not appear to be abnormally thickened. No focal uterine mass seen. The endometrium measures up to 0.6 cm in thickness. CERVIX: Subcentimeter nabothian cysts. VAGINA: Normal; no mass seen. OVARIES: Ovaries are symmetric in size. In the left ovary, there is a nonspecific 1.8 x 1.2 cm T2 dark observation (7:8) that it is isointense to the ovarian stroma on T1 precontrast images, and demonstrates some subtle hyper enhancement when compared to the adjacent stroma on postcontrast images (9:12). In the left ovary, there is a subtle T2 bright avascular simple cyst (7:8), for which no imaging follow-up is recommended. In the right ovary, there is a 1.3 cm T2 bright lesion (7:8) with a peripheral T2 dark rim and signal hyperintensity on T1 precontrast images, nonspecific but possibly representing a hemorrhagic cyst or adenomyoma. Additionally, in the right ovary, there is a 1.3 cm T2 bright avascular cyst (7:9) and a 1.6 cm rim-enhancing corpus luteal cyst (9:13) for which no further imaging follow-up is recommended. KIDNEYS: Two normally positioned kidneys are seen. No hydronephrosis. There are couple of subcentimeter T2 bright cortical observations in the right kidney, likely representing simple cysts but incompletely characterized in this examination, only visualized in the large jrbqn-[id number] coronal T2 images. BLADDER: Urinary bladder normal. PELVIC FREE FLUID: Trace amount of free fluid, likely physiologic. LYMPH NODES: No pathologically enlarged lymph nodes. OSSEOUS STRUCTURES: No acute or suspicious osseous abnormalities. MR/MR pelvis wo/w con IMPRESSION: Nonspecific T2 dark observation in the left ovary with some questionable mild hyperenhancement compared to the parenchyma on postcontrast images. This could represent some sort of fibrous lesion such as fibroma/fibrothecoma or just a normal variation of the parenchyma. Recommend a short-term follow-up to reassess. Nonspecific 1.3 cm T1 bright precontrast lesion in the right ovary with T2 bright signal and a peripheral T2 dark rim, suggesting the presence of an endometrioma. Alternatively, could potentially represent a hemorrhagic cyst. Recommend as well a follow-up examination to reassess. Assessment & Plan Assessment & Plan (1) Encounter for well woman exam: Code(s): Z01.419 - Encounter for gynecological examination (general) (routine) without abnormal findings Plan: Discussed: Current recommendations for pap smears per ASCCP guidelines. Breast awareness and periodic self breast exams. Maintaining a healthy lifestyle including a well balanced diet and routine exercise. Mammogram reordered, strongly advised to complete. Encouraged patient to sign up for patient portal. All of her questions and concerns were addressed to the best of my ability. RTO in one year for AG. (2) Left ovarian cyst: Code(s): N83.202 - Unspecified ovarian cyst, left side Plan: Pelvic US ordered. Follow up in person for results. pt. agree's to completing. (3) Vaginal itching: Code(s): N89.8 - Other specified noninflammatory disorders of vagina Plan: BV testing done today. Await results and treat accordingly. Valtrex sent to pharmacy. Orders: Orders MM tomosynthesis screening BI Today Z12.31 - Encounter for screening mammogram for malignant neoplasm of breast US pelvic and transvaginal Today N83.202 - Unspecified ovarian cyst, left side Bacterial Vaginosis Panel Today N89.8 - Other specified noninflammatory disorders of vagina Medications: New valacyclovir (Valtrex) take with onset on of symptoms, take for three days, may repeat dosing per episode prn 500 mg PO BID 30 tabs 1RF Coding Level of Care Code Est Pt Prev Care 40-64y(18574) Diagnoses Encounter for well woman exam Z01.419 Left ovarian cyst N83.202 Vaginal itching N89.8
[2023-09-03 10:19] VITALS: BP 124/80; BMI 34.4
== END 2023-09-03 10:49 | disposition home or self-care (01) ==
PROVIDERS: PCP Internal Medicine; Visit Provider Advanced Practice Midwife
DX: Z01.419 Encounter for gynecological examination (general) (routine) without abnormal findings (principal); N83.202 Unspecified ovarian cyst, left side; N89.8 Other specified noninflammatory disorders of vagina
CPT/HCPCS: 99396

== ENCOUNTER 2023-10-02 11:16 | Outpatient (REF) | payer OTHER, SELFPAY ==
--- NOTE | ~2023-10-02 | US_ITS ---
EXAMINATION: US PELVIS COMPLETE US PELVIS ENDOVAGINAL CLINICAL INFORMATION: Unspecified ovarian cyst left side COMPARISON: MRI pelvis from 07/30/2022, ultrasound pelvis from 06/18/2022 TECHNIQUE: Transabdominal and transvaginal images of the pelvis were obtained. FINDINGS: UTERUS: Anteverted. Normal size and contour, measuring 8.0 x 3.1 x 5.7 cm (cervix to fundus x AP x transverse). Previously identified fibroid is not well visualized on current examination. Uniform, homogeneous endometrium measures 0.8 cm in width. Nabothian cysts are noted. RIGHT OVARY: Normal size and echogenicity measuring 2.6 x 2.1 x 2.0 cm, volume 5.7 mL. LEFT OVARY: Normal size and echogenicity measuring 2.4 x 2.9 x 2.5 cm, volume 9.1 mL. FREE FLUID: No pelvic free fluid. US/US pelvic and transvaginal IMPRESSION: 1. Previously identified uterine fibroid is not well visualized on current examination. 2. Endometrium measures 8 mm which is thickened in the postmenopausal state, clinical correlation suggested. 3. Nabothian cysts are noted. 4. Bilateral ovaries are unremarkable.
== END 2023-10-02 11:17 | disposition home or self-care (01) ==
LOC: HO.US 11:16
PROVIDERS: PCP Internal Medicine; Visit Provider Advanced Practice Midwife
DX: N83.202 Unspecified ovarian cyst, left side (principal)
CPT/HCPCS: 76830; 76856

== ENCOUNTER 2023-10-15 09:49 | Outpatient (AMB) | payer OTHER, SELFPAY ==
[2023-10-15 10:40] VITALS: BP 110/70; BMI 34.4
--- NOTE | 2023-10-15 10:40 | MHC.OFFVIS ---
Intake Vital Signs 10/15/23 10:40 Height 5 ft 2 in Weight 188 lb BMI 34.4 BP 110/70 Intake Visit Reasons: US Follow up Intake Note: Scribed for Renee Savage CNM by [facility] scribe, on 10/15/2023 at 10:48 AM, EST. Allergies morphine [MORPHINE] Allergy (Mild, Verified 10/15/23 10:42) RASH, hives metronidazole [Flagyl] Allergy (Unknown, Verified 10/15/23 10:42) shaking,dizziness, vision changes Is last menstrual period known: Yes Last menstrual period: 10/08/23 HPI HPI Comments History of Present Illness Details The patient is a premenopausal women presenting for an ultrasound follow up due to prior ovarian cyst and heavy menstrual bleeding. She has a history of endometriosis. She has complaints of vaginal discharge.~Associated with odor, and itching. She was previously treated for BV.~ Then got a secondary yeast infection; was treated for yeast. [facility] Medical History Abnormal Pap smear of cervix Miscarriage of left tubal ectopic History of ovarian cyst Pelvic pain Immunization refused Obesity Intermittent palpitations Perianal abscess Abnormal MRI, pelvis Renal calculi Endometriosis Abnormal pelvic ultrasound Ectopic Genital herpes Surgical History History of left oophorectomy Hx of colonoscopy H/O abdominoplasty History of endometrial ablation History of loop electrical excision procedure (LEEP) H/O breast augmentation H/O gastric sleeve Hx of dilation and curettage Hx of cholecystectomy Family History Maternal Grandmother History of breast cancer Father Substance use disorder Mental health disorder Mother Substance use disorder Mental health disorder Paternal Uncle Substance use disorder Mental health disorder Maternal Uncle Substance use disorder Mental health disorder Maternal Uncle Substance use disorder Mental health disorder Maternal Uncle Substance use disorder Mental health disorder Social History Housing: House Alcohol intake: never Patient Tobacco Use Status: Never used Tobacco e-Cigarette/Vaping Use: Never Used Second Hand Smoke Exposure: Yes service: No Current occupational status: unemployed Sexual orientation: Straight/Heterosexual Gender identity: Female Cognitive needs: No Hearing needs: No Vision needs: Yes Female Reproductive History Menstrual Age of Menarche: 12 Date of last menstrual period: 10/08/23 Physical Exam Vital Signs: Last Vital Signs BP 110/70 10/15/23 10:40 BMI result Body Mass Index 34.4 Const General: cooperative, healthy appearing and no acute distress Orientation/consciousness: patient oriented x3 Neuro General: patient oriented x3 Results Reviewed Results Reviewed: Date of Service: 10/02/23 Procedure(s): US pelvic and transvaginal Accession Number(s): [id number] cc: Yvette Kellogg MD; Renee Savage CNM~ EXAMINATION: US PELVIS COMPLETE US PELVIS ENDOVAGINAL CLINICAL INFORMATION: Unspecified ovarian cyst left side COMPARISON: MRI pelvis from 07/30/2022, ultrasound pelvis from 06/18/2022 TECHNIQUE: Transabdominal and transvaginal images of the pelvis were obtained. FINDINGS: UTERUS: Anteverted. Normal size and contour, measuring 8.0 x 3.1 x 5.7 cm (cervix to fundus x AP x transverse). Previously identified fibroid is not well visualized on current examination. Uniform, homogeneous endometrium measures 0.8 cm in width. Nabothian cysts are noted. RIGHT OVARY: Normal size and echogenicity measuring 2.6 x 2.1 x 2.0 cm, volume 5.7 mL. LEFT OVARY: Normal size and echogenicity measuring 2.4 x 2.9 x 2.5 cm, volume 9.1 mL. FREE FLUID: No pelvic free fluid. US/US pelvic and transvaginal IMPRESSION: 1. Previously identified uterine fibroid is not well visualized on current examination. 2. Endometrium measures 8 mm which is thickened in the postmenopausal state, clinical correlation suggested. 3. Nabothian cysts are noted. 4. Bilateral ovaries are unremarkable. Assessment & Plan Assessment & Plan (1) Vaginal discharge: Code(s): N89.8 - Other specified noninflammatory disorders of vagina (2) Vaginal odor: Code(s): N89.8 - Other specified noninflammatory disorders of vagina (3) Encounter to discuss test results: Code(s): Z71.2 - Person consulting for explanation of examination or test findings (4) Abnormal uterine bleeding (AUB): Code(s): N93.9 - Abnormal uterine and vaginal bleeding, unspecified Plan BV panel done today. Discussed work up including pelvic US, labs and EMBx. The EMBx purpose was explained to rule out atypia, hyperplasia and uterine cancer. Reviewed procedure and instructed to take ibuprofen with food 1 hour prior to procedure. Go to ER with any prolonged or heavy bleeding. All of her questions and concerns were addressed to the best of my ability and shared decision making: for EMBx. She is agreeable to plan of care. Return in 2 weeks for test results and EMBx. * Reviewed normal spacing of menses, contact office that are spaced out shorter than 3 weeks and heavy or prolonged bleeding. * Discussed BC options for cycle control including IUD to protect the endometrium from hyperplasia leading to possible endometrial cancer if she does not have normal spacing of menses. Orders: Orders Bacterial Vaginosis Panel Today N89.8 - Other specified noninflammatory disorders of vagina Medications: Refilled valacyclovir (Valtrex) take with onset on of symptoms, take for three days, may repeat dosing per episode prn 500 mg PO BID 90 tabs 0RF Coding Level of Care Code Est Pt Level 3 (75265) Diagnoses Vaginal discharge N89.8 Vaginal odor N89.8 Encounter to discuss test results Z71.2 Abnormal uterine bleeding (AUB) N93.9
== END 2023-10-15 11:02 | disposition home or self-care (01) ==
PROVIDERS: PCP Internal Medicine; Visit Provider Advanced Practice Midwife
DX: N89.8 Other specified noninflammatory disorders of vagina (principal); Z71.2 Person consulting for explanation of examination or test findings; N93.9 Abnormal uterine and vaginal bleeding, unspecified
CPT/HCPCS: 99213

== ENCOUNTER 2023-10-15 09:49 | Outpatient (REF) | payer OTHER, SELFPAY ==
[2023-10-16 10:20] LABS: BV Int Neg Control Negative (Negative); BV Int Pos Control Positive (Positive)
== END 2023-10-15 09:50 | disposition home or self-care (01) ==
LOC: HO.LAB 09:49
PROVIDERS: PCP Internal Medicine; Visit Provider Advanced Practice Midwife
DX: N89.8 Other specified noninflammatory disorders of vagina (principal); N93.9 Abnormal uterine and vaginal bleeding, unspecified; Z71.2 Person consulting for explanation of examination or test findings
CPT/HCPCS: 87480; 87510; 87660; 99212

== ENCOUNTER 2023-10-30 11:14 | Outpatient (AMB) | payer OTHER, SELFPAY ==
[2023-10-30 11:24] VITALS: BP 110/70; BMI 34.4
--- NOTE | 2023-10-30 11:24 | A.OFFVIS_ITS ---
Intake Vital Signs 10/30/23 11:24 Height 5 ft 2 in Weight 188 lb BMI 34.4 BP 110/70 Intake Visit Reasons: EMB per [facility] Director Of Architecture: Director Of Architecture Present (Nell) Allergies morphine [MORPHINE] Allergy (Mild, Verified 10/30/23 11:25) RASH, hives metronidazole [Flagyl] Allergy (Unknown, Verified 10/30/23 11:25) shaking,dizziness, vision changes Is last menstrual period known: Yes Last menstrual period: 10/08/23 HPI EMB per [facility] HPI Details The patient is here today for an endometrial biopsy for AUB to rule out any pathology including atypical, hyperplasia or cancer cells of the uterus. She was counseled regarding anticipatory guidance for the procedure including the risks for pain, infection, bleeding, perforation, potential injury to the tissues may include the cervix, uterus, tubes, bladder and bowels. These injuries may include further treatment and evaluation including surgery, blood transfusions, antibiotics, hospitalizations and anesthesia. Permanent injury and scarring can occur. She was consented for the procedure, and the consent forms were signed. She is agreeable to have the procedure today. All questions were answered. [facility] Medical History Abnormal Pap smear of cervix Miscarriage of left tubal ectopic History of ovarian cyst Pelvic pain Immunization refused Obesity Intermittent palpitations Perianal abscess Abnormal MRI, pelvis Renal calculi Endometriosis Abnormal pelvic ultrasound Ectopic Genital herpes Surgical History History of left oophorectomy Hx of colonoscopy H/O abdominoplasty History of endometrial ablation History of loop electrical excision procedure (LEEP) H/O breast augmentation H/O gastric sleeve Hx of dilation and curettage Hx of cholecystectomy Family History Maternal Grandmother History of breast cancer Father Substance use disorder Mental health disorder Mother Substance use disorder Mental health disorder Paternal Uncle Substance use disorder Mental health disorder Maternal Uncle Substance use disorder Mental health disorder Maternal Uncle Substance use disorder Mental health disorder Maternal Uncle Substance use disorder Mental health disorder Social History Housing: House Alcohol intake: never Patient Tobacco Use Status: Never used Tobacco e-Cigarette/Vaping Use: Never Used Second Hand Smoke Exposure: Yes service: No Current occupational status: unemployed Sexual orientation: Straight/Heterosexual Gender identity: Female Cognitive needs: No Hearing needs: No Vision needs: Yes Female Reproductive History Menstrual Age of Menarche: 12 Date of last menstrual period: 10/08/23 Review of Systems Const All systems reviewed & are unremarkable except as noted in HPI and below Physical Exam Vital Signs: Last Vital Signs BP 110/70 10/30/23 11:24 BMI result Body Mass Index 34.4 Const General: cooperative, healthy appearing and no acute distress Orientation/consciousness: patient oriented x3 GI Inspection: Yes normal to inspection Palpation (GI): Soft to palpation and Other GI palpation findings present (Nontender) Rectal Exam - Female: visual inspection normal General: Yes bladder normal to palpation External Female Exam: normal appearance of the urethra Speculum Exam - Vagina: normal appearance of the vagina, normal palpation and normal vaginal discharge Speculum Exam - Cervix: normal appearance of the cervix, normal palpation and Other cervical findings present (S/P LEEP appearance, stenotic appearing os) Bimanual exam- vagina & uterus: normal bimanual exam, normal palpation, uterine size normal, bladder normal to palpation, normal palpation, uterine shape normal and non-tender Bimanual Exam- Adnexa, other: normal adnexae Neuro General: patient oriented x3 Office Procedures Endometrial Biopsy Details: Endometrial Biopsy Procedure: The patient was placed in the dorsal lithotomy position and a sterile speculum inserted. Using aseptic technique for the procedure. The cervix was cleansed with Betadine x 3 swabs. A single toothed tenaculum was placed on the cervix for stabilization, the cer vical os was stenotic, a graduated dilator was attempted to be utilized and was not able to be completed due to the patient starting to have a panic attach. The procedure was stopped. The patient was in good condition when leaving the department. [id number] Biopsy Results AMB Test Urine AMB Test Urine Negative Last Edit by NARINDER Landon on 10/30/23 11:43 Results Reviewed Results Reviewed: Laboratory Last Values Tst Clinic Negative 10/30/23 11:42 Assessment & Plan Assessment & Plan (1) Abnormal uterine bleeding (AUB): Code(s): N93.9 - Abnormal uterine and vaginal bleeding, unspecified Plan: Endometrial biopsy was planned but patient had a panic attack in the procedure had to be stopped. Discussed her options for local anesthesia or in-hospital for general anesthesia. Patient reports that she will request that she has general anesthesia for this procedure due to her anxiety. Plan consult with MD for plan of care for endometrial biopsy. (2) Anxiety: Code(s): F41.9 - Anxiety disorder, unspecified Plan Supported by staff. Utilization of breathing techniques for visit. Orders: Orders AMB HCG Urine Test Today N93.9 - Abnormal uterine and vaginal bleeding, unspecified, Z32.02 - Encounter for test, result negative Coding Level of Care Code Tele Est Pt Level 3 (23826) Diagnoses Abnormal uterine bleeding (AUB) N93.9 Anxiety F41.9 CPT Codes Endometrial Biopsy - CPT: 25423-[id number] Biopsy ([id number]) Comment procedure stopped per pt. request
== END 2023-10-30 12:15 | disposition home or self-care (01) ==
PROVIDERS: PCP Internal Medicine; Visit Provider Advanced Practice Midwife
DX: N93.9 Abnormal uterine and vaginal bleeding, unspecified (principal); F41.9 Anxiety disorder, unspecified; Z32.02 Encounter for pregnancy test, result negative
CPT/HCPCS: 99213

== ENCOUNTER → 2023-10-30 11:14 | Outpatient (BNVA) | payer OTHER, SELFPAY | PROVIDERS: PCP Internal Medicine; Visit Provider Advanced Practice Midwife | DX: N93.9 Abnormal uterine and vaginal bleeding, unspecified (principal); F41.9 Anxiety disorder, unspecified; Z32.02 Encounter for pregnancy test, result negative; Z53.29 Procedure and treatment not carried out because of patient's decision for other reasons | CPT/HCPCS: 81025; 99212 ==

== ENCOUNTER → 2023-11-11 16:27 | Outpatient (BNVA) | payer OTHER, SELFPAY | PROVIDERS: PCP Internal Medicine; Visit Provider Obstetrics & Gynecology | DX: N93.9 Abnormal uterine and vaginal bleeding, unspecified (principal) | CPT/HCPCS: 99212 ==

== ENCOUNTER 2023-11-14 08:53 | Day surgery (SDC) | payer OTHER, SELFPAY ==
--- NOTE | 2023-11-13 10:53 | P.CONAN_ITS ---
Documented by User: Laura Suggs NP 11/13/23 10:54 HPI - Anesthesia Eval Consult details Narrative: 48yo F for D&C Hysteroscopy s/p colo 08/2023 with TIVA PMFSH Active Problems Active Problems: All Active Problems (Updated 11/11/23 @ 16:33 by Tarik Hubbard MD) Abnormal uterine bleeding (AUB) (Acute) Encounter to discuss test results (Acute) Vaginal odor (Acute) Vaginal discharge (Acute) Bloating symptom (Acute) Encounter for screening colonoscopy (Acute) Chronic constipation (Acute) History of ovarian cyst (Acute) Pelvic pain (Acute) Immunization refused (Acute) Obesity (Acute) Intermittent palpitations (Acute) Abnormal MRI, pelvis (Acute) Abnormal pelvic ultrasound (Acute) Past Medical History Medical History Abnormal Pap smear of cervix Miscarriage of left tubal ectopic History of ovarian cyst Pelvic pain Immunization refused Obesity Intermittent palpitations Perianal abscess Abnormal MRI, pelvis Renal calculi Endometriosis Abnormal pelvic ultrasound Ectopic Genital herpes Family History Family History Maternal Grandmother History of breast cancer Father Substance use disorder Mental health disorder Mother Substance use disorder Mental health disorder Paternal Uncle Substance use disorder Mental health disorder Maternal Uncle Substance use disorder Mental health disorder Maternal Uncle Substance use disorder Mental health disorder Maternal Uncle Substance use disorder Mental health disorder Surgical History Surgical History History of left oophorectomy Hx of colonoscopy H/O abdominoplasty History of endometrial ablation History of loop electrical excision procedure (LEEP) H/O breast augmentation H/O gastric sleeve Hx of dilation and curettage Hx of cholecystectomy History of Problems with Anesthesia: No Social History Social History Housing: House Alcohol intake: never Patient Tobacco Use Status: Never used Tobacco e-Cigarette/Vaping Use: Never Used Second Hand Smoke Exposure: Yes Are you DNR?: No Advance Directives: No Advance Directives Information Provided: Yes Nutrition Risks: No Nutritional Risk FDLMP: 10/20/23 service: No Current occupational status: unemployed Sexual orientation: Straight/Heterosexual Gender identity: Female Cognitive needs: No Hearing needs: No Vision needs: Yes Meds Allergies Allergy/AdvReac Type Severity Reaction Status Date / Time morphine [MORPHINE] Allergy Mild RASH, hives Verified 11/14/23 09:24 metronidazole [Flagyl] Allergy Unknown shaking,dizziness, Verified 11/14/23 09:24 vision changes Exam Pertinent Lab Results Pertinent Lab Results: Laboratory Tests 06/12/23 09:22 WBC 6.9 Hgb 14.1 Hct 43.2 Plt Count 253 Sodium 141 Potassium 4.2 Chloride 108 Carbon Dioxide 27 BUN 12 Creatinine 0.76 Assessment and Plan Assessment Anesthesia Assessment: Chart Reviewed Final Anesthetic Review History of Problems with Anesthesia: No Documented by User: Aylin Meek MD 11/14/23 10:01 [facility] Past Medical History Medical History Abnormal Pap smear of cervix Miscarriage of left tubal ectopic History of ovarian cyst Pelvic pain Immunization refused Obesity Intermittent palpitations Perianal abscess Abnormal MRI, pelvis Renal calculi Endometriosis Abnormal pelvic ultrasound Ectopic Genital herpes Family History Family History Maternal Grandmother History of breast cancer Father Substance use disorder Mental health disorder Mother Substance use disorder Mental health disorder Paternal Uncle Substance use disorder Mental health disorder Maternal Uncle Substance use disorder Mental health disorder Maternal Uncle Substance use disorder Mental health disorder Maternal Uncle Substance use disorder Mental health disorder Family history of problems with anesthesia: No Surgical History Surgical History History of left oophorectomy Hx of colonoscopy H/O abdominoplasty History of endometrial ablation History of loop electrical excision procedure (LEEP) H/O breast augmentation H/O gastric sleeve Hx of dilation and curettage Hx of cholecystectomy Social History Social History Housing: House Alcohol intake: never Patient Tobacco Use Status: Never used Tobacco e-Cigarette/Vaping Use: Never Used Second Hand Smoke Exposure: Yes Are you DNR?: No Advance Directives: No Advance Directives Information Provided: Yes Nutrition Risks: No Nutritional Risk FDLMP: 10/20/23 service: No Current occupational status: unemployed Sexual orientation: Straight/Heterosexual Gender identity: Female Cognitive needs: No Hearing needs: No Vision needs: Yes Meds Allergies Allergy/AdvReac Type Severity Reaction Status Date / Time morphine [MORPHINE] Allergy Mild RASH, hives Verified 11/14/23 09:24 metronidazole [Flagyl] Allergy Unknown shaking,dizziness, Verified 11/14/23 09:24 vision changes Exam Airway Mallampati Class: II TM Dist: >3cm Neck ROM: Full Heart: rrr Lungs: cta Assessment and Plan Assessment Anesthesia Assessment: Anesthesia Plan Discussed Final Anesthetic Review Family History of Problems with Anesthesia: No NPO: Yes ASA Class: II Final Preanesthetic Review: No Changes in Pt Med Stat, Meds/Allgs Chart Reviewed, Consent Obtained/Reviewed and Anes Risks/Benef Reviewed Patient Risk: Low Procedure Risk: Low Anesthetic Plan Anesthetic Plan: GA Disposition: Standard PACU
[2023-11-14] VITALS (9 sets, daily range): BP systolic 124–160; BP diastolic 73–103; PULSE 51–73; RESP 16–20; TEMP 36.2–36.7; O2SAT 97–98; BMI 34.2
[2023-11-14] MEDS: Lactated Ringers 1,000 ML 100 ML IVCONT (09:09)
[2023-11-14 09:21] LABS: UPreg QC Valid YES; Urine Pregnancy NEGATIVE (NEGATIVE)
--- NOTE | 2023-11-14 09:28 | MHC.SHP ---
Pre-Procedural Eval Section A Date of Service: 11/14/23 The patient is an INPATIENT: No Changes since office visit: No Cold of Flu in the past 2 weeks, No New Medical Problems, No Changes in Medication and No Patient answered all questions The History & Physical has been completed within 30 days and I have reviewed it.: Yes Section B Chief Complaint: Abnormal uterine and vaginal bleeding, unspecified Allergies: Allergies Allergy/AdvReac Type Severity Reaction Status Date / Time morphine [MORPHINE] Allergy Mild RASH, hives Verified 11/14/23 09:24 metronidazole [Flagyl] Allergy Unknown shaking,dizziness, Verified 11/14/23 09:24 vision changes Plan Diagnosis/Plan: Unchanged I have reviewed the history and physical and performed a pertinent physical examination on my patient. No changes have occurred unless specified. Time Spent With Patient Time: Total time managing care of this patient today ____ minutes.
--- NOTE | 2023-11-14 10:27 | PM.OP ---
Brief Operative Note Date of Service: 11/14/23 Pre-op diagnosis: Abnormal uterine bleeding Post-op diagnosis: same (Extensive intrauterine adhesions) Procedure: Hysteroscopy D&C Surgeon: Tarik Hubbard MD Anesthesia: GLMA Was an Court Recording Monitor used for this Procedure?: No Estimated blood loss (mL): 0 Pathology: other (Endometrial Scrapping) Condition: stable Disposition: PACU
--- NOTE | 2023-11-14 10:28 | W.PM.OPN ---
Operative Note Operative Note Date of Service: 11/14/23 Narrative: Preop Diagnosis: Abnormal uterine bleeding Operation: Diagnostic Hysteroscopy, Dilatation & Curettage Post Op Diagnosis: Extensive intrauterine adhesions from previous endometrial ablation QBL: Minimal Anesthesia: GLMA Surgeon: Tarik Hubbard MD Certified Wellness Program Manager: None Complication: None Pathology: Endometrial Scrapings Procedure: The patient was put in the dorsal lithotomy position, scrubbed, and draped in the usual manner. A sterile speculum was inserted in the patient's vagina. The anterior lip of the cervix was grasped with a single tooth tenaculum. The cervix was dilated up to 5 mm, then the scope was inserted in the patient's uterus. Inspection revealed extensive intrauterine adhesions from previous endometrial ablation. The scope was taken out of the uterine cavity , then sharp curetting was carried on with no complications. At the end of the procedure, all instruments were taken out of the patient uterine and vaginal cavity. The single tooth tenaculum was removed and homeostasis was assured using pressure. The patient tolerated the procedure well and was transferred to the PACU in a stable condition.
[2023-11-14] MEDS: oxyCODONE HCl Immed Release 5 MG TABLET PO (10:40)
[2023-11-14] MEDS: fentaNYL citrate/PF 100 MCG/2 ML VIAL 25 MCG IVPUSH ×4 (10:40→11:15)
== END 2023-11-14 12:00 | disposition home or self-care (01) ==
PROVIDERS: Nurse Practitioner; PCP Internal Medicine; Visit Provider Obstetrics & Gynecology
PROC: 0UDB8ZZ Extraction of Endometrium, Via Natural or Artificial Opening Endoscopic (ICD-10-PCS; CPT 58558; principal; 2023-11-14 10:00)
DX: N93.9 Abnormal uterine and vaginal bleeding, unspecified (principal); K66.0 Peritoneal adhesions (postprocedural) (postinfection); N80.9 Endometriosis, unspecified; E66.9 Obesity, unspecified; Z68.34 Body mass index [BMI] 34.0-34.9, adult; Z98.84 Bariatric surgery status; A60.00 Herpesviral infection of urogenital system, unspecified; Z79.899 Other long term (current) drug therapy; Z88.1 Allergy status to other antibiotic agents; Z88.5 Allergy status to narcotic agent; Z98.890 Other specified postprocedural states; Z90.49 Acquired absence of other specified parts of digestive tract
CPT/HCPCS: 58558; 81025; 88305; J1885; J2250; J2405; J2704; J3010

== ENCOUNTER → 2023-11-14 08:53 | Outpatient (BNV) | payer OTHER, SELFPAY | PROVIDERS: PCP Internal Medicine; Visit Provider Obstetrics & Gynecology | DX: N93.9 Abnormal uterine and vaginal bleeding, unspecified (principal) | CPT/HCPCS: 58558 ==

== ENCOUNTER 2023-12-10 13:00 | Outpatient (AMB) | payer OTHER, SELFPAY ==
--- NOTE | 2023-12-10 13:26 | A.OFFVIS_ITS ---
Intake Vital Signs 12/10/23 13:28 Height 5 ft 2 in Weight 187 lb BMI 34.2 BP 108/64 Intake Visit Reasons: post op Allergies morphine [MORPHINE] Allergy (Mild, Verified 11/14/23 09:24) RASH, hives metronidazole [Flagyl] Allergy (Unknown, Verified 11/14/23 09:24) shaking,dizziness, vision changes HPI HPI Comments History of Present Illness Details The patient is presenting for follow-up to discuss the results of her abnormal uterine bleeding workup and options of treatment. The following workup was done.: H&H= 14.1/43.2 TSH, hCG, GC and chlamydia were negative. Co testing was done in 08/22 was negative. Mammogram was done in 06/21 was BI-RADS 2 Pelvic ultrasound showed the following: UTERUS: Anteverted. Normal size and contour, measuring 8.0 x 3.1 x 5.7 cm (cervix to fundus x AP x transver se). Previously identified fibroid is not well visualized on current examination. Uniform, homogeneous endometrium measures 0.8 cm in width. Nabothian cysts are noted. RIGHT OVARY: Normal size and echogenicity measuring 2.6 x 2.1 x 2.0 cm, volume 5.7 mL. LEFT OVARY: Normal size and echogenicity measuring 2.4 x 2.9 x 2.5 cm, volume 9.1 mL. FREE FLUID: No pelvic free fluid. Hysteroscopy D&C was done showed extensive intra-uterine adhesions secondary to previous endometrial ablation, the pathology showed the following: Endometrium, curettage: Few superficial strips of endometrial, endocervical and squamous epithelium with degenerative changes; abundant blood; no atypia identified. COMMENT: The endometrium is quite sparse; recommend repeat sampling, as clinically appropriate The patient is having vaginal bleeding requesting surgical management specifically hysterectomy PFSH Medical History Abnormal Pap smear of cervix Miscarriage of left tubal ectopic History of ovarian cyst Pelvic pain Immunization refused Obesity Intermittent palpitations Perianal abscess Abnormal MRI, pelvis Renal calculi Endometriosis Abnormal pelvic ultrasound Ectopic Genital herpes Surgical History History of left oophorectomy Hx of colonoscopy H/O abdominoplasty History of endometrial ablation History of loop electrical excision procedure (LEEP) H/O breast augmentation H/O gastric sleeve Hx of dilation and curettage Hx of cholecystectomy Family History Maternal Grandmother History of breast cancer Father Substance use disorder Mental health disorder Mother Substance use disorder Mental health disorder Paternal Uncle Substance use disorder Mental health disorder Maternal Uncle Substance use disorder Mental health disorder Maternal Uncle Substance use disorder Mental health disorder Maternal Uncle Substance use disorder Mental health disorder Social History Housing: House Alcohol intake: never Patient Tobacco Use Status: Never used Tobacco e-Cigarette/Vaping Use: Never Used Second Hand Smoke Exposure: Yes service: No Current occupational status: unemployed Sexual orientation: Straight/Heterosexual Gender identity: Female Cognitive needs: No Hearing needs: No Vision needs: Yes Female Reproductive History Menstrual Age of Menarche: 12 Review of Systems Const All systems reviewed & are unremarkable except as noted in HPI and below Reports as per HPI and Reports no additional complaints GI Reports no additional complaints Reports no additional complaints Assessment & Plan Assessment & Plan (1) Abnormal uterine bleeding (AUB): Comment: h/o endometrial ablation Code(s): N93.9 - Abnormal uterine and vaginal bleeding, unspecified Plan: Discussed with the patient the results of the workup including the pathology of the D and C showing sparse endometrial tissue, 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 Discussed with the patient the different types of hysterectomies including, vaginal, laparoscopic assisted vaginal, robotic assisted laparoscopic,& abdominal with BSO. All pros, cons, r/b of each approach were discussed the patient including evidence that morbidity is less and recovery is shorter with minimally invasive approaches to hysterectomy. Discussed with the patient the lack of availability of the robot DaVinci robot and/or minimally invasive window tinter specialist at [facility]. The patient requested to be referred to a tertiary care center. Will refer to [facility] for minimally invasive hysterectomy. Instructed the patient to call our office back in case a referral appointment is not scheduled, missed or canceled so that we will assist on rescheduling another appointment, the patient verbalized understanding agreed with the plan. Coding Level of Care Code Est Pt Level 3 (65667) Diagnoses Abnormal uterine bleeding (AUB) N93.9
[2023-12-10 13:28] VITALS: BP 108/64; BMI 34.2
== END 2023-12-10 15:05 | disposition home or self-care (01) ==
LOC: HO.HWS 13:01
PROVIDERS: PCP Internal Medicine; Visit Provider Obstetrics & Gynecology
DX: N93.9 Abnormal uterine and vaginal bleeding, unspecified (principal)
CPT/HCPCS: 99213

== ENCOUNTER → 2023-12-10 13:00 | Outpatient (BNVA) | payer OTHER, SELFPAY | PROVIDERS: PCP Internal Medicine; Visit Provider Obstetrics & Gynecology | DX: N93.9 Abnormal uterine and vaginal bleeding, unspecified (principal) | CPT/HCPCS: 99212 ==

== ENCOUNTER 2024-06-10 10:55 | Outpatient (AMB) | payer OTHER, SELFPAY ==
[2024-06-10 11:01] VITALS: BP 128/98; PULSE 68; O2SAT 100; BMI 35.7
--- NOTE | 2024-06-10 11:01 | A.OFFPC_ITS ---
Vital Signs 06/10/24 11:01 Height 5 ft 2 in Weight 195 lb BMI 35.7 BP 128/98 H Blood Pressure Location Lt brachial Position Sitting Pulse 68 Pulse Source Pulse Oximeter Pulse Oximetry (%) 100 Oxygen Delivery Method Room Air Intake Visit Reasons: PE Intake Note: Pt is here today for her PE: last mammogram 06/18/22, papsmear 09/03/23 Allergies morphine [MORPHINE] Allergy (Mild, Verified 06/10/24 11:35) RASH, hives metronidazole [Flagyl] Allergy (Unknown, Verified 06/10/24 11:35) shaking,dizziness, vision changes Medication List - Last Reconciled 06/10/24 by Yvette Kellogg MD No Known Home Meds Tobacco use date assessed: 06/10/24 Dental Screening Dental Screen Date: 06/10/24 Did you have a dental visit in the last 12 months?: No Did you have a dental problem in the last 6 months where you did not have access to dental care?: No Was dental information given to patient?: No HPI PE HPI Details 48-year-old lady here today for physical exam. She goes to [facility] for her routine Pap and pelvic exam, currently up-to-date, but overdue for her screening mammogram, last done in 2021. Up-to-date with her screening colonoscopy done last year by Dr. Sheehan Has abnormal uterine bleeding, referred by Dr. Hubbard to [facility] to undergo hysterectomy. Complains of abdominal bloating, with constipation. Patient states that she has not been able to lose weight, already had laparoscopic gastrectomy but started gaining weight again, has been exercising and eating a healthy diet, but unable to lose weight again. [facility] Medical History (Updated 06/13/24 @ 19:06 by Yvette Kellogg MD) IBS (irritable bowel syndrome) Abnormal Pap smear of cervix Miscarriage of left tubal ectopic History of ovarian cyst Pelvic pain Immunization refused Obesity Intermittent palpitations Perianal abscess Abnormal MRI, pelvis Renal calculi Endometriosis Abnormal pelvic ultrasound Ectopic Genital herpes Surgical History History of left oophorectomy Hx of colonoscopy H/O abdominoplasty History of endometrial ablation History of loop electrical excision procedure (LEEP) H/O breast augmentation H/O gastric sleeve Hx of dilation and curettage Hx of cholecystectomy Family History Maternal Grandmother History of breast cancer Father Substance use disorder Mental health disorder Mother Substance use disorder Mental health disorder Paternal Uncle Substance use disorder Mental health disorder Maternal Uncle Substance use disorder Mental health disorder Maternal Uncle Substance use disorder Mental health disorder Maternal Uncle Substance use disorder Mental health disorder Social History Housing: House Alcohol intake: never Patient Tobacco Use Status: Never used Tobacco e-Cigarette/Vaping Use: Never Used Second Hand Smoke Exposure: Yes service: No Current occupational status: employed and unemployed Sexual orientation: Straight/Heterosexual Gender identity: Female Cognitive needs: No Hearing needs: No Vision needs: Yes Female Reproductive History Menstrual Age of Menarche: 12 Questionnaire PHQ-9 Over the last 2 weeks, how often have you been bothered by any of the following problems? 1. Little interest or pleasure in doing things: not at all 2. Feeling down, depressed, or hopeless: not at all 3. Trouble falling or staying asleep, or sleeping too much: several days 4. Feeling tired or having little energy: several days 5. Poor appetite or overeating: several days 6. Feeling bad about yourself - or that you are a failure or have let yourself or your family down: not at all 7. Trouble concentrating on things, such as reading the newspaper or watching television: not at all 8. Moving or speaking so slowly that other people could have noticed. Or the opposite - being so fidgety or restless that you have been moving around a lot more than usual: not at all 9. Thoughts that you would be better off or of hurting yourself in some way: not at all Total score: 3 Depression Screening Interpretation: Negative Depression Screening Done: Yes [id number] - PHQ-9 Billing: Yes Source: Developed by Drs. Jay Dahl, Vaishali Oneal, Jose Dunham and colleagues, with an educational faustino from [employer]. Thrive Questionnaire Date Thrive assessed: 06/10/24 I am a: Patient What is your living situation today?: I have a steady place to live Within the past 12 months, did the food you bought not last and you didn't have the money to get more?: Never true Within the past 12 months, did you worry whether your food would run out before you got money to buy more?: Never true Do you have trouble paying for medicines?: No Do you have trouble getting transportation to medical appointments?: No Do you have trouble paying your heating and electricity bill?: Yes Do you have trouble taking care of your child, family member or friend?: No Do you have trouble with day-to-day activities such as bathing, preparing meals, shopping, managing finances, etc.?: No Are you currently unemployed and looking for a job?: No Are you interested in more education?: No Please select the resources that you would like help with: Utilities THRIVE Score: 1 AUDIT C Alcohol Use Questionnaire (AUDIT-C) 1. How often do you have a drink containing alcohol?: Never Total Score: 0 MARSHALL-7 AMB Questionnaire MARSHALL-7 Date MARSHALL - 7 assessed: 06/10/24 Feeling nervous, anxious, or on edge: 1 = Several days Not being able to stop or control worryin = Not at all Worrying too much about different things: 1 = Several days Trouble relaxin = Several days Being so restless that it is hard to sit still: 0 = Not at all Becoming easily annoyed or irritable: 0 = Not at all Feeling afraid as if something awful might happen: 0 = Not at all Total MARSHALL-7 score (0-4 normal; 5-9 mild; 10-14 moderate; 15-21 severe): 3 Source: Developed by Drs. Jay Dahl, Vaishali Oneal, Jose Dunham and colleagues, with an educational faustino from [employer]. MARSHALL-7 Assessment Billing MARSHALL-7 Assessment Tool: MARSHALL-7 Assessment 33737 Review of Systems Const Denies fatigue, Denies fever(s), Denies headache(s) and Denies weakness Eyes Denies change in vision ENT Denies dizziness, Denies headache(s), Denies nasal congestion, Denies nasal discharge and Denies sore throat Card Denies chest pain, Denies lightheadedness, Denies palpitations and Denies dyspnea Resp Denies chest congestion, Denies cough, Denies dyspnea and Denies wheezing GI Denies abdominal pain, Denies change in bowel habits and Denies heartburn Denies hematuria, Denies urinary frequency, Denies dysuria and Denies urinary urgency Musc Reports stiffness Skin/Breast Denies breast pain, Denies breast mass, Denies lesions and Denies rash Neuro Denies dizziness, Denies headache(s) and Denies weakness Psych Reports no additional complaints Endo Denies fatigue, Denies polydipsia, Denies polyuria and Denies palpitations Julio/Lymph Denies easy bruising Aller/Immun Denies seasonal rhinorrhea and Denies wheezing Physical exam (Primary Care) Vital Signs: Last Vital Signs Pulse 68 06/10/24 11:01 BP 128/98 H 06/10/24 11:01 Pulse Ox 100 06/10/24 11:01 Oxygen Delivery Method Room Air 06/10/24 11:01 BMI result Body Mass Index 35.7 BMI Assessment/Plan discussion: High BMI High, discussed plan: lifestyle, weight reduction, dietary and physical activity Tobacco/Smoking Status: Tobacco use Status Tobacco use date assessed 06/10/24 06/10/24 11:03 Patient Tobacco Use Status Never used Tobacco 06/10/24 11:03 e-Cigarette/Vaping Use Never Used 06/10/24 11:03 PHQ-9: PHQ-9 Score PHQ-9: Total score 3 06/10/24 18:35 Depression Screening Interpretation: Negative Thrive Assessment: Date of Thrive Assessment Date Thrive assessed 06/10/24 06/10/24 18:35 Const General: comfortable, alert and well groomed Nutritional Appearance: obese Orientation/consciousness: patient oriented x3 HENMT Head: Yes normocephalic Ears: hearing grossly normal bilaterally, external ears normal, TM's normal bilaterally and EAC's normal General nose exam: Normal external nose present Face and sinus: Yes face symmetric Mouth: Normal oral and palatal mucosa present, oropharynx normal and moist mucous membranes Eyes General: appearance normal, both eyes and all related structures Pupils: Equal, round and reactive pupils present EOM: EOMs intact bilaterally Neck Neck: Yes full ROM and Yes no lymphadenopathy Thyroid: Thyroid normal Chest Other: Bilateral breast implants Breast/axilla inspection: normal inspection of the breasts Breast/axilla palpation: normal palpation of the breasts Resp Effort & Inspection: normal respiratory effort and able to speak in complete sentences Auscultation: clear to auscultation bilaterally Cardio Rate: regular rate Rhythm: regular rhythm Heart sounds: S1 normal heart sound present and S2 normal heart sound present GI Inspection: Yes obesity Palpation (GI): Soft to palpation, nontender, no guarding and no masses Auscultation: normal bowel sounds General: Yes no CVA tenderness and Yes deferred (Has appointment with [facility] on 06/12/2023 for her routine Pap pelvic exam) Back/Spine/Pelvis Back: no CVA tenderness and No back tenderness Skin General skin exam: no rashes or lesions noted Neuro General: patient oriented x3, gait normal, tone normal, moves all extremities, Normal light touch and pain sensation, no focal motor deficits and CN's II-XI intact bilaterally Cranial nerves: Yes Equal, round and reactive pupils present Cognition (Neuro): normal cognition Gait exam (Neuro): Normal gait present Extrem General: Yes full ROM, Yes no joint enlargement, Yes no clubbing, cyanosis or edema and Yes normal gait Psych Appearance: grossly normal and well kempt Mental Status: mental status grossly normal Speech and movement: Normal speech and movement present Affect: normal affect Attitude: cooperative Assessment and Plan Assessment & Plan (1) Annual visit for general adult medical examination with abnormal findings: Code(s): Z00.01 - Encounter for general adult medical examination with abnormal findings Plan: Will check appropriate labs. Recommended dental visit every 6 months and regular eye exams, at least every 2 years. Take adequate calcium in diet and vitamin-D 3 at 2000 IU per cap once a day, in addition to weight-bearing exercises to help maintain good muscle tone and weight control. Instructed to do self-breast exam, and recommended to get yearly mammogram. Sees Dr. Hubbard for her routine Pap and pelvic exam, has abnormal uterine bleeding, and has been referred to [facility] to undergo hysterectomy, and has an appointment to follow-up with [facility] in 09/19/2024. Up-to-date with screening colonoscopy done last year by Dr. Sheehan (2) Abnormal uterine bleeding (AUB): Comment: h/o endometrial ablation Code(s): N93.9 - Abnormal uterine and vaginal bleeding, unspecified Plan: Already had laparoscopic sleeve gastrectomy, but started gaining weight again. Will try on a course of phentermine 15 mg per tablet to take 2 hours after breakfast, combined this with adherence to healthy eating habits and getting regular exercise. Will see her back for follow-up in 4 weeks (3) IBS (irritable bowel syndrome): Code(s): K58.9 - Irritable bowel syndrome without diarrhea Plan: Complains of bloating, irregular bowel movements with constipation, will do a trial of dicyclomine 20 mg per tablet to take 1 tablet 3 times a day with meals. Increase dietary fiber intake and stay well-hydrated, staying active and getting regular exercise will also help. (4) Obesity: Code(s): E66.9 - Obesity, unspecified Qualifiers: Obesity type: unspecified obesity type Obesity classification: adult class 2 (BMI 35 - 39.9) Body mass index: BMI 35.0-35.9 Serious obesity comorbidity presence: without serious comorbidity Qualified Code(s): E66.9 - Obesity, unspecified; Z68.35 - Body mass index [BMI] 35.0-35.9, adult Plan: Will try on phentermine 15 mg per tablet 1 tablet 2 hours after breakfast. Please combined this with adherence to healthy eating habits and getting regular exercise. Will see her back for follow-up in 4 weeks (5) Chronic constipation: Code(s): K59.09 - Other constipation Plan: Will try on dicyclomine Orders: Orders Complete Blood Count Auto Diff 06/10/24 E66.9 - Obesity, unspecified, K58.9 - Irritable bowel syndrome without diarrhea, K59.09 - Other constipation, N93.9 - Abnormal uterine and vaginal bleeding, unspecified, O99.619 - Diseases of the digestive system complicating , unspecified trimester, Z00.01 - Enco unter for general adult medical examination with abnormal findings TSH reflex Free T4 06/10/24 E66.9 - Obesity, unspecified, K58.9 - Irritable bowel syndrome without diarrhea, K59.09 - Other constipation, N93.9 - Abnormal uterine and vaginal bleeding, unspecified, O99.619 - Diseases of the digestive system complicating , unspecified trimester, Z00.01 - Encounter for general adult medical examination with abnormal findings Alanine Aminotransferase 06/10/24 E66.9 - Obesity, unspecified, K58.9 - Irritable bowel syndrome without diarrhea, K59.09 - Other constipation, N93.9 - Abnormal uterine and vaginal bleeding, unspecified, O99.619 - Diseases of the digestive system complicating , unspecified trimester, Z00.01 - Encounter for general adult medical examination with abnormal findings Aspartate Amino Transferase 06/10/24 E66.9 - Obesity, unspecified, K58.9 - Irritable bowel syndrome without diarrhea, K59.09 - Other constipation, N93.9 - Abnormal uterine and vaginal bleeding, unspecified, O99.619 - Diseases of the digestive system complicating , unspecified trimester, Z00.01 - Enco unter for general adult medical examination with abnormal findings Basic Metabolic Panel Fasting 06/10/24 E66.9 - Obesity, unspecified, K58.9 - Irritable bowel syndrome without diarrhea, K59.09 - Other constipation, N93.9 - Abnormal uterine and vaginal bleeding, unspecified, O99.619 - Diseases of the digestive system complicating , unspecified trimester, Z00.01 - Encounter for general adult medical examination with abnormal findings Vitamin D 25-OH Total 06/10/24 E66.9 - Obesity, unspecified, K58.9 - Irritable bowel syndrome without diarrhea, K59.09 - Other constipation, N93.9 - Abnormal uterine and vaginal bleeding, unspecified, O99.619 - Diseases of the digestive system complicating , unspecified trimester, Z00.01 - Encounter for general adult medical examination with abnormal findings Vitamin B12 and Folate 06/10/24 E66.9 - Obesity, unspecified, K58.9 - Irritable bowel syndrome without diarrhea, K59.09 - Other constipation, N93.9 - Abnormal uterine and vaginal bleeding, unspecified, O99.619 - Diseases of the digestive system complicating , unspecified trimester, Z00.01 - Encounter for general adult medical examination with abnormal findings Lipid Panel 06/10/24 E66.9 - Obesity, unspecified, K58.9 - Irritable bowel syndrome without diarrhea, K59.09 - Other constipation, N93.9 - Abnormal uterine and vaginal bleeding, unspecified, O99.619 - Diseases of the digestive system complicating , unspecified trimester, Z00.01 - Encounter for general adult medical examination with abnormal findings Medications: New phentermine must administer 2 hours after breakfast 15 mg PO DAILY 30 caps 0RF E66.9 - Obesity, unspecified dicyclomine 20 mg PO TID 90 tabs 0RF K58.9 - Irritable bowel syndrome without diarrhea, O99.619 - Diseases of the digestive system complicating , unspecified trimester Coding Level of Care Code Est Pt Prev Care 40-64y(91932) Diagnoses Annual visit for general adult medical examination with abnormal findings Z00.01 Abnormal uterine bleeding (AUB) N93.9 IBS (irritable bowel syndrome) K58.9 Class 2 obesity without serious comorbidity with body mass index (BMI) of 35.0 to 35.9 in adult, unspecified obesity type E66.9; Z68.35 Obesity type: unspecified obesity type Obesity classification: adult class 2 (BMI 35 - 39.9) Body mass index: BMI 35.0-35.9 Serious obesity comorbidity presence: without serious comorbidity Chronic constipation K59.09 Additional Codes MARSHALL-7 Assessment Billing - MARSHALL-7 Assessment Tool: MARSHALL-7 Assessment [id number] ([id number])
== END 2024-06-10 12:06 | disposition home or self-care (01) ==
PROVIDERS: PCP Internal Medicine; Visit Provider Internal Medicine
DX: Z00.00 Encounter for general adult medical examination without abnormal findings (principal); N93.9 Abnormal uterine and vaginal bleeding, unspecified; E66.9 Obesity, unspecified; Z68.35 Body mass index [BMI] 35.0-35.9, adult; K58.9 Irritable bowel syndrome, unspecified; K59.09 Other constipation
CPT/HCPCS: 99396

== ENCOUNTER 2025-05-13 11:49 | Outpatient (AMB) | payer OTHER, SELFPAY ==
--- NOTE | 2025-05-13 12:01 | AM.OFFWIN_ITS ---
Intake Vital Signs 05/13/25 12:03 Height 5 ft 2 in Weight 186 lb 6 oz BMI 34.1 BP 118/72 Blood Pressure Location Rt brachial Position Sitting Pulse 101 H Pulse Source Pulse Oximeter Temp 98.1 F Temp Source Oral Pulse Oximetry (%) 98 Oxygen Delivery Method Room Air Intake Visit Reasons: EP-?shingles Intake Note: Pt presents to the office today for c/o red,blistery patces on her body. Pt states she has a hx of shingles. Patient Tobacco Use Status: Never used Tobacco Allergies morphine [MORPHINE] Allergy (Mild, Verified 05/13/25 12:03) RASH, hives metronidazole [Flagyl] Allergy (Unknown, Verified 05/13/25 12:03) shaking,dizziness, vision changes HPI HPI Comments History of Present Illness Details History - The patient is a 49-year-old female pr esenting with a suspected onset of shingles and generalized itching. - She has a history of similar skin erup tions post-childbirth, treated successfully with steroids but tells me know doctor was ever able to give her a diagnosis, she says she had seen several physicians at the time. - Current symptoms include widespread it mary and lesions with varying morphologies, including fluid-filled vesicles and flat itchy red patches. - She reports a burning sensation with s ome lesions and has a history of genital herpes, which is supposed to be managed with valacyclovir. 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 She was diagnosed by her clam digger provider, Renee Savage. She says she has tried calling the office several times to get this straightened out but was unable to accomplish this so she got frustrated and gave up. Physical Exam Physical Exam General: Cooperative, healthy appearing, comfortable, no acute distress and well developed Orientation: Patient oriented x3 Limitations: No limitations Head: Normal to inspection Ears: Hearing grossly normal bilaterally Nose: Normal External nose present Face and sinus: Normal facial exam Mouth: Normal, moist oral mucosa Eyes: Appearance normal, both eyes and all related structures Neck: Normal visual inspection and Yes full ROM Respiratory: Normal respiratory effort and able to speak in complete sentences. Skin: Left middle finger medial side has a fluid filled vesicle with a dewey colored base. Right 4th digit has a small area of erythema with a scant amount of dry skin. Right lateral ankle has a 1 cm round area of erythema with white edges/dry skin. Neuro: Patient oriented x3 Extremities: Moving all extremities normally PFSH Medical History IBS (irritable bowel syndrome) Abnormal Pap smear of cervix Miscarriage of left tubal ectopic History of ovarian cyst Pelvic pain Immunization refused Obesity Intermittent palpitations Perianal abscess Abnormal MRI, pelvis Renal calculi Endometriosis Abnormal pelvic ultrasound Ectopic Genital herpes Surgical History History of left oophorectomy Hx of colonoscopy H/O abdominoplasty History of endometrial ablation History of loop electrical excision procedure (LEEP) H/O breast augmentation H/O gastric sleeve Hx of dilation and curettage Hx of cholecystectomy Family History Maternal Grandmother History of breast cancer Father Substance use disorder Mental health disorder Mother Substance use disorder Mental health disorder Paternal Uncle Substance use disorder Mental health disorder Maternal Uncle Substance use disorder Mental health disorder Maternal Uncle Substance use disorder Mental health disorder Maternal Uncle Substance use disorder Mental health disorder Social History Housing: House Alcohol intake: never Patient Tobacco Use Status: Never used Tobacco e-Cigarette/Vaping Use: Never Used Second Hand Smoke Exposure: Yes service: No Current occupational status: employed and unemployed Sexual orientation: Straight/Heterosexual Gender identity: Female Cognitive needs: No Hearing needs: No Vision needs: Yes Female Reproductive History Menstrual Age of Menarche: 12 Review of Systems Const All systems reviewed & are unremarkable except as noted in HPI and below Physical Exam Vital Signs: Last Vital Signs Temp 98.1 F 05/13/25 12:03 Pulse 101 H 05/13/25 12:03 BP 118/72 05/13/25 12:03 Pulse Ox 98 05/13/25 12:03 Oxygen Delivery Method Room Air 05/13/25 12:03 BMI result Body Mass Index 34.1 Assessment & Plan Assessment & Plan (1) Herpetic neeru: Code(s): B00.89 - Other herpesviral infection Plan: As patient has a diagnosis of genital herpes, the lesion on her left middle fi nger is likely a herpetic neeru. sent one time dose of acyclovir to pharmacy. Patient will call me on Friday to let me know if it helped or not. Complete resolution can take up to 3 weeks according to up to date. She can also use NSAIDs if it is painful. If it does not help, then we will send a referral to see dermatology. For her history of Genital Herpes, I have sent a message to her EQUIPMENT [employer]PERATION [employer] provider for continuation of valacyclovir prescription for herpes maintenance management. (2) Eczema: Code(s): L30.9 - Dermatitis, unspecified Qualifiers: Eczema type: unspecified Qualified Code(s): L30.9 - Dermatitis, unspecified Plan: I believe these bought on her ankle and the right hand 4th finger are eczema, sent clobetasol to pharmacy. Patient will call me on Friday and let me know if this treatment worked and if it did not, then we will send her to Dermatology. This is based on the fact that she had a weird similar rash many years ago and it only resolved with oral steroids but no physician diagnosed her with anything. Also gave her hydroxyzine for generalized itching and told her she could take an allergy pill daily instead which will not make her as tired. Plan Medications: New clobetasol 0.05% Do not use on hands face or genitals. Please wash your hands after applying this medication or use gloves 1 appl topical BID 1 week 30 grams 0RF hydroxyzine HCl 25 mg PO BEDTIME PRN 14 tabs 0RF itching valacyclovir 2,000 mg (2 x 1 gram) PO ONCE 2 tabs 1RF Coding Level of Care Code Est Pt Level 4 (33354) Diagnoses Herpetic neeru B00.89 Eczema, unspecified type L30.9 Eczema type: unspecified
[2025-05-13 12:03] VITALS: BP 118/72; PULSE 101; TEMP 36.7; O2SAT 98; BMI 34.1
--- OUTSIDE RECORDS SUMMARY | 2025-05-13 12:44 | XMS_ITS | Data Portability ---
Author Organization [facility], [address] Address [address] [place] [address] Assessment No assessment recorded. Plan of Treatment Reminders Order Date Submit Date Provider Last Modified By Organization Details Last Modified Time Details Appointments None recorded. Lab None recorded. Referral emergency medicine referral 2023 024 [email or web address] Not available 20:15:10 Procedures None recorded. Surgeries None recorded. Imaging None recorded. Medication Orders None recorded. Patient TargetsNo targets recorded. Patient Instructions Encounter Date Encounter Id Patient Instructions Last Modified By Organization Details Last Modified Time 08/20/2024 [id number] dizziness: care instructions [email or web address] Not available 08/20/2024 19:50:08 palpitations: ca re instructions [email or web address] Not available 08/20/2024 19:50:08 Based on your history, symptoms, exam and studies done here my recommendation is for you to go immediately to the Emergency Room by ambulance. The ER is better equipped and has additional resources to be able to evaluate you to make sure that your complaint is not life threatening. Unfortunately, in the urgent care setting we do not have the ability to do this level of tests and studies. My concern is for your wellbeing, which is why my recommendation is the Emergency Room. I recommend that you go by ambulance from here and that you do not eat or drink anything until you have been evaluated by the ER staff and cleared by them to eat or drink. [email or web address] Not available 09/04/2024 07:42:40 Reason for Referral Emergency Medicine Referral for Electrocardiogram abnormal Referring Physician: [facility], Encounter Date: 08/20/2024 Results Created Date Observation Date Name Description Value Unit Range Abnormal Flag Note LastModifiedBy Organization Detail LastModifiedTime 08/20/20 24 rhyth m EKG, 1-3 leads No observ ation record ed. [email or web address] Not Available 08/20 19:43:48 Result Notes None recorded. Procedures Surgical History Date Name Laterality Status Provider Name and Address Organization Details Recorded Time 07/11/20 23 OC-UDS Send Out Template NON DOT completed SHELDON VENTURA PA - [facility] 07/11/2023 15:11:59 Cholecystectomy completed Cielo Perez PA - [facility] 08/20/2024 19:16:27 Imaging Results None recorded. Procedure Notes None recorded. Medical Equipment None Reported. Allergies Allergen ID Allergen Name Allergen Category Reaction Reaction Severity Criticality Documentation Date Start Date Code Code System Note Provider Name and Address Organization Details Recorded Time 078342 morphine medicatio n Not available Not available Not available 08/20/2024 7052 RxNorm Cielo vo PA - [facility] 19:14:19 Medications Name Sig Start Date Stop Date Status Note LastModified by Organization Details LastModified Time fluconazole 150 mg tablet TAKE 1 TABLET BY MOUTH EVERY 3 DAYS NEEDED OFR VAGINAL ITCHING FOR 2 DOSES 08/20 completed Not Available Not Available Not Available metronidazo le 500 mg tablet TAKE 1 TABLET BY MOUTH TWICE A DAY FOR 7 DAYS WITH FOOD. AVOID ALCOHOL/V INEGAR PRODUCTS 08/20 completed Not Available Not Available Not Available Vitals Date Recorded Body height Body weight Body mass index (BMI) Oxygen saturation Oxygen saturation in Arterial blood by Pulse oximetry Heart rate Respiratory rate Body temperature Systolic blood pressure Diastolic blood pressure Provider Name and Address Organization Details Last Updated DateTime 4 157.48 cm 75742.3 7 g 34.4 kg/m2 100 % 100 % 91 /min 21 /min 98.5 [degF] 119 mm[Hg] 78 mm[Hg] Cielo MEHTA - [facility] 4 19:11:45 Social History Question Answer Notes LastModified by Organizat ion Details LastModified Time Tobacco Smoking Status Never Smoker Cielo vo PA - [facility] 08/20/2024 19:15:41 Have You Had A Flu Shot This Season? No [email or web address] Information not available 08/20/2024 If No, Would You Like A Flu Shot Today? No [email or web address] Information not available 08/20/2024 What Is Your Relationship Status? [email or web address] Information not available 08/20/2024 Have You Recently Traveled Abroad? No [email or web address] Information not available 08/20/2024 Sex: Unknown Functional Status Question Answer Note LastModified by Organizat ion Details LastModified Time Do you use any illicit or recreational drugs? No [email or web address] Information not available 08/20/2024 Do you or have you ever used any other forms of tobacco or nicotine? No [email or web address] Information not available 08/20/2024 Are you currently employed? Yes [email or web address] Information not available 08/20/2024 Mental Status None recorded. Family History Nothing Reported. Medical History No medical history recorded. Gynecological HistoryNo gynecological history recorded. Obstetrics History GPAL:G 0 P 0 0 0 0 Past Encounters Encounter ID Performer Location Encounter Start Date Encounter Closed Date Diagnosis/Indication Diagnosis SNOMED-CT Code Diagnosis ICD10 Code Diagnosis Note [id number] [address] [place] [address] 09/22/2021 09:08:16 09/22/2021 10:50:27 [id number] [place] [address] [address] 07/11/2023 14:53:30 07/11/2023 15:16:58 History and physical examination, occupation 104118703 Z02.1 [id number] [place] NOGUEIRA [place] [address] [address] 08/20/2024 18:57:21 08/20/2024 20:15:10 Chest pain 47230139 R07.9 Pounding heart 139993427 R00.2 Electrocar diogram abnormal 258310183 R94.31 Health Concerns Section Related Observation LastModified by Organization Detai ls LastModified Time None Recorded Concern Status LastModified by Organization Details LastModified Time None Recorded Advance Directives Directive None Recorded Payers Insurance Date Sequence Insurance Name Policy Number Policy Hughes Covered Member ID Hughes Member ID Guarantor Name 08/20/2024 OC-ESCREEN Rebeca OCAMPO POAH Rebeca Francois 09/07/2024 1 [facility] (HMO) [id number] Rebeca Francois [id number] Rebeca Francois 09/07/2024 2 [facility] (MEDICAID HMO) PARRIS Rogers [id number] Rebeca Francois Notes Date Note Type Note Provider Name and Address Organization Details Recorded Time 08/20/2024 text/html 49 y F presents with recent palpitations x3 days that have increased in intensity and now she feels them in her throat and it makes her cough. She has also developed chest and upper back pain. No syncope, dyspnea, radiating chest pain. Afebrile and no recent illness, trauma, or toxic exposure. BARBARA NOGUEIRA MD [address] [facility] [place], [address], PA - [facility] 09/04/2024 07:43:31 OBGyn Episode No OBEpisode recorded.
== END 2025-05-13 12:41 | disposition home or self-care (01) ==
PROVIDERS: PCP Internal Medicine; Visit Provider Physician Assistant
DX: B00.89 Other herpesviral infection (principal); L30.9 Dermatitis, unspecified

== ENCOUNTER → 2025-05-13 11:49 | Outpatient (BNVA) | payer OTHER, SELFPAY | PROVIDERS: PCP Internal Medicine; Visit Provider Physician Assistant | DX: Z13.89 Encounter for screening for other disorder (principal) ==

== ENCOUNTER 2025-07-20 12:53 | Outpatient (AMB) | payer BC, SELFPAY ==
[2025-07-20 12:55] VITALS: BP 128/88; PULSE 76; RESP 16; TEMP 36.6; O2SAT 98; BMI 35.3
--- NOTE | 2025-07-20 12:55 | A.OFFPC_ITS ---
Vital Signs 07/20/25 12:55 Height 5 ft 2 in Weight 193 lb BMI 35.3 BP 128/88 Blood Pressure Location Lt brachial Position Sitting Respiration 16 Pulse 76 Pulse Source Pulse Oximeter Temp 97.8 F Temp Source Oral Pulse Oximetry (%) 98 Oxygen Delivery Method Room Air Intake Visit Reasons: PE Intake Note: Pt is here today for her PE: last mammogram 06/18/22, colonoscopy 08/01/23, papsmear 09/03/23 Allergies morphine (MORPHINE) Allergy (Mild, Verified 08/01/25 18:23) RASH, hives metronidazole (Flagyl) Allergy (Unknown, Verified 08/01/25 18:23) shaking,dizziness, vision changes Medication List - Last Reconciled 07/20/25 by Yvette Kellogg MD valacyclovir 2,000 mg (2 x 1 gram) PO ONCE Tobacco use date assessed: 07/20/25 Dental Screening Dental Screen Date: 07/20/25 Did you have a dental visit in the last 12 months?: No Did you have a dental problem in the last 6 months where you did not have access to dental care?: No Was dental information given to patient?: Patient declined HPI PE HPI Details 50-year-old lady here today for her phys ical exam. - Endometriosis was diagnosed during a r obotic hysterectomy. Post-hysterectomy, the patient experienced prolonged recovery and significant pain, requiring multiple ER visits. - The patient reports weight gain from 1 86 to 193 pounds over two months, attributed to changes post-hysterectomy and medication adjustments. - Depression symptoms include lack of motivation, anhedonia, and mood swings, were also reported. - Genital herpes outbreaks have increase d in frequency post-hysterectomy, with monthly recurrences noted. - The patient has a family history of east cancer, with her maternal grandmother having multiple occurrences. - The patient has been diagnosed with pr ediabetes and dyslipidemia, which are being monitored. - Abdominal pain is described as an ache , possibly related to constipation and bloating, with no tenderness on examination. -overdue for her breast cancer screening , last mammogram was done in 2021. -had a screening colonoscopy done in , with hyperplastic removed by Dr. Sheehan, due again for repeat colonoscopy in 2032 [facility] Medical History (Updated 07/20/25 @ 13:21 by Yvette Kellogg MD) Impaired fasting glucose Dyslipidemia IBS (irritable bowel syndrome) Abnormal Pap smear of cervix Miscarriage of left tubal ectopic History of ovarian cyst Pelvic pain Immunization refused Obesity Intermittent palpitations Perianal abscess Abnormal MRI, pelvis Renal calculi Endometriosis Abnormal pelvic ultrasound Ectopic Genital herpes Surgical History (Updated 07/20/25 @ 13:32 by Yvette Kellogg MD) S/P LUCAS-BSO (total abdominal hysterectomy and bilateral salpingo-oophorectomy) History of left oophorectomy Hx of colonoscopy H/O abdominoplasty History of endometrial ablation History of loop electrical excision procedure (LEEP) H/O breast augmentation H/O gastric sleeve Hx of dilation and curettage Hx of cholecystectomy Family History Maternal Grandmother History of breast cancer Father Substance use disorder Mental health disorder Mother Substance use disorder Mental health disorder Paternal Uncle Substance use disorder Mental health disorder Maternal Uncle Substance use disorder Mental health disorder Maternal Uncle Substance use disorder Mental health disorder Maternal Uncle Substance use disorder Mental health disorder Social History Housing: House Alcohol intake: never Patient Tobacco Use Status: Never used Tobacco e-Cigarette/Vaping Use: Never Used Second Hand Smoke Exposure: Yes service: No Current occupational status: employed and unemployed Sexual orientation: Straight/Heterosexual Gender identity: Female Cognitive needs: No Hearing needs: No Vision needs: Yes Female Reproductive History Menstrual Age of Menarche: 12 Questionnaire PHQ-9 Over the last 2 weeks, how often have you been bothered by any of the following problems? 1. Little interest or pleasure in doing things: several days 2. Feeling down, depressed, or hopeless: several days 3. Trouble falling or staying asleep, or sleeping too much: several days 4. Feeling tired or having little energy: several days 5. Poor appetite or overeating: not at all 6. Feeling bad about yourself - or that you are a failure or have let yourself or your family down: not at all 7. Trouble concentrating on things, such as reading the newspaper or watching television: not at all 8. Moving or speaking so slowly that other people could have noticed. Or the opposite - being so fidgety or restless that you have been moving around a lot more than usual: not at all 9. Thoughts that you would be better off or of hurting yourself in some way: not at all Total score: 4 Depression Screening Interpretation: Positive (Mild , occurring after recent hysterectomy) Depression Screening Done: Yes 72284 - PHQ-9 Billing: Yes Source: Developed by Drs. Jay Dahl, Vaishali Oneal, Jose Dunham and colleagues, with an educational faustino from [employer]. Thrive Questionnaire Date Thrive assessed: 07/20/25 I am a: Patient What is your living situation today?: I have a steady place to live Within the past 12 months, did the food you bought not last and you didn't have the money to get more?: Never true Within the past 12 months, did you worry whether your food would run out before you got money to buy more?: Never true Do you have trouble paying for medicines?: No Do you have trouble getting transportation to medical appointments?: No Do you have trouble paying your heating and electricity bill?: Yes Do you have trouble taking care of your child, family member or friend?: No Do you have trouble with day-to-day activities such as bathing, preparing meals, shopping, managing finances, etc.?: No Are you currently unemployed and looking for a job?: No Are you interested in more education?: No Please select the resources that you would like help with: Utilities THRIVE Score: 1 MARSHALL-7 AMB Questionnaire MARSHALL-7 Date MARSHALL - 7 assessed: 06/10/24 Source: Developed by Drs. Jay Dahl, Vaishali Oneal, Jose Dunham and colleagues, with an educational faustino from [employer]. Review of Systems Const Reports as per HPI and Reports weight gain Eyes Denies change in vision ENT Denies dizziness and Denies nasal congestion Card Denies chest pain, Denies lightheadedness, Denies palpitations and Denies dyspnea Resp Denies chest congestion, Denies cough, Denies dyspnea and Denies wheezing GI Details: Occasional abdominal pain described as an ache, sometimes associated with constipation and bloating Denies hematuria, Denies urinary frequency, Denies dysuria and Denies urinary urgency Musc Reports stiffness Skin/Breast Denies breast pain, Denies breast mass, Denies lesions and Denies rash Neuro Denies dizziness Psych Reports no additional complaints Endo Denies polydipsia, Denies polyuria and Denies palpitations Julio/Lymph Denies easy bruising Aller/Immun Denies seasonal rhinorrhea and Denies wheezing Physical exam (Primary Care) Vital Signs: Last Vital Signs Temp 97.8 F 07/20/25 12:55 Pulse 76 07/20/25 12:55 Resp 16 07/20/25 12:55 BP 128/88 07/20/25 12:55 Pulse Ox 98 07/20/25 12:55 Oxygen Delivery Method Room Air 07/20/25 12:55 BMI result Body Mass Index 35.3 BMI Assessment/Plan discussion: High BMI High, discussed plan: lifestyle, weight reduction, dietary and physical activity Tobacco/Smoking Status: Tobacco use Status Tobacco use date assessed 07/20/25 07/20/25 13:03 Patient Tobacco Use Status Never used Tobacco 07/20/25 13:03 e-Cigarette/Vaping Use Never Used 07/20/25 13:03 PHQ-9: PHQ-9 Score PHQ-9: Total score 4 08/01/25 18:33 Depression Screening Interpretation: Positive (Mild , occurring after recent hysterectomy) Thrive Assessment: Date of Thrive Assessment Date Thrive assessed 07/20/25 08/01/25 18:33 Const Other: Reports weight gain from 186 to 193 pounds over two months General: comfortable, alert and well groomed Nutritional Appearance: obese Orientation/consciousness: patient oriented x3 HENMT Head: Yes normocephalic Ears: hearing grossly normal bilaterally, external ears normal, TM's normal bilaterally and EAC's normal General nose exam: Normal external nose present Face and sinus: Yes face symmetric Mouth: Normal oral and palatal mucosa present and moist mucous membranes Eyes General: appearance normal, both eyes and all related structures Pupils: Equal, round and reactive pupils present EOM: EOMs intact bilaterally Neck Neck: Yes full ROM and Yes no lymphadenopathy Thyroid: Thyroid normal Chest Other: Bilateral breast implants Breast/axilla inspection: normal inspection of the breasts Breast/axilla palpation: normal palpation of the breasts Resp Effort & Inspection: normal respiratory effort and able to speak in complete sentences Auscultation: clear to auscultation bilaterally Cardio Rate: regular rate Rhythm: regular rhythm Heart sounds: S1 normal heart sound present and S2 normal heart sound present GI Other: Occasional abdominal pain described as an ache, sometimes associated with constipation and bloating. Inspection: Yes obesity Palpation (GI): Soft to palpation, nontender, no guarding and no masses Auscultation: normal bowel sounds General: Yes no CVA tenderness and Yes deferred (Status post hysterectomy) Back/Spine/Pelvis Back: no CVA tenderness and No back tenderness Skin General skin exam: no rashes or lesions noted Neuro General: patient oriented x3, gait normal, tone normal, moves all extremities, Normal light touch and pain sensation, no focal motor deficits and CN's II-XI intact bilaterally Cranial nerves: Yes Equal, round and reactive pupils present Cognition (Neuro): normal cognition Gait exam (Neuro): Normal gait present Extrem General: Yes full ROM, Yes no joint enlargement, Yes no clubbing, cyanosis or edema and Yes normal gait Psych Appearance: grossly normal and well kempt Mental Status: mental status grossly normal Speech and movement: Normal speech and movement present Affect: normal affect Attitude: cooperative Coding Level of Care Code Est Pt Prev Care 40-64y(00345) Diagnoses Annual visit for general adult medical examination with abnormal findings Z00. Immunization refused Z28.21 Class 2 obesity without serious comorbidity with body mass index (BMI) of 35.0 to 35.9 in adult, unspecified obesity type E66.9; Z68.35 Body mass index: BMI 35.0-35.9 Obesity classification: adult class 2 (BMI 35 - 39.9) Obesity type: unspecified obesity type Serious obesity comorbidity presence: without serious comorbidity Surgical menopause, symptomatic E89.41 Additional Codes PHQ-9 - 02809 - PHQ-9 Billing: Yes ([id number]) Assessment & Plan Assessment & Plan (1) Annual visit for general adult medical examination with abnormal findings: Code(s): Z00.01 - Encounter for general adult medical examination with abnormal findings (2) Immunization refused: Code(s): Z28.21 - Immunization not carried out because of patient refusal Category: Medical (3) Obesity: Code(s): E66.9 - Obesity, unspecified Category: Medical Qualifiers: Body mass index: BMI 35.0-35.9 Obesity classification: adult class 2 (BMI 35 - 39.9) Obesity type: unspecified obesity type Serious obesity comorbidity presence: without serious comorbidity Qualified Code(s): E66.9 - Obesity, unspecified; Z68.35 - Body mass index [BMI] 35.0-35.9, adult (4) Surgical menopause, symptomatic: Code(s): E89.41 - Symptomatic postprocedural ovarian failure Plan Started on Zepbound for weight management, starting at 5 mg once weekly, with a plan to increase the dose as tolerated. The patient is advised to follow a bland diet on the day of injection to prevent gastrointestinal side effects. Regular follow-up is scheduled to monitor progress and adjust the treatment plan as necessary. For depression, the patient has opted to focus on weight management as a primary intervention, given the contraindication of concurrent antidepressant use with Zepbound. The patient is encouraged to engage in regular physical activity and maintain a healthy diet to support mental health. Genital herpes will be managed with Valtrex, with instructions to take the medication at the first sign of an outbreak. The patient will have refills available to ensure continuous management of the condition. The patient is advised to complete the recommended blood work to monitor prediabetes and dyslipidemia. Preventative care measures, including mammogram and tetanus diphtheria booster, are scheduled to maintain overall health. Patient does not want to get any vaccines Patient was informed and verbally consented to the use of an ambient scribe for clinic note documentation during this visit. Orders: Orders Lipid Panel 07/20/25 R00.2 - Palpitations, N93.9 - Abnormal uterine and vaginal bleeding, unspecified, Z00.01 - Encounter for general adult medical examination with abnormal findings, Z13.220 - Encounter for screening for lipoid disorders, Z13.1 - Encounter for screening for diabetes mellitus, Z28.21 - Immunization not carried out because of patient refusal Alanine Aminotransferase 07/20/25 R00.2 - Palpitations, N93.9 - Abnormal u terine and vaginal bleeding, unspecified, Z00.01 - Encounter for general adult medical examination with abnormal findings, Z13.220 - Encounter for screening for lipoid disorders, Z13.1 - Encounter for screening for diabetes mellitus, Z28.21 - Immunization not carried out because of patient refusal Hemoglobin and Hematocrit 07/20/25 R00.2 - Palpitations, N93.9 - Abnormal uterine and vaginal bleeding, unspecified, Z00.01 - Encounter for general adult medical examination with abnormal findings, Z13.220 - Encounter for screening for lipoid disorders, Z13.1 - Encounter for screening for diabetes mellitus, Z28.21 - Immunization not carried out because of patient refusal Basic Metabolic Panel Fasting 07/20/25 R00.2 - Palpitations, N93.9 - Abnormal uterine and vaginal bleeding, unspecified, Z00.01 - Encounter for general adult medical examination with abnormal findings, Z13.220 - Encounter for screening for lipoid disorders, Z13.1 - Encounter for screening for diabetes mellitus, Z28.21 - Immunization not carried out because of patient refusal Aspartate Amino Transferase 07/20/25 R00.2 - Palpitations, N93.9 - Abnormal uterine and vaginal bleeding, unspecified, Z00.01 - Encounter for general adult medical examination with abnormal findings, Z13.220 - Encounter for screening for lipoid disorders, Z13.1 - Encounter for screening for diabetes mellitus, Z28.21 - Immunization not carried out because of patient refusal Vitamin D 25-OH Total 07/20/25 R00.2 - Palpitations, N93.9 - Abnormal uterine and vaginal bleeding, unspecified, Z00.01 - Encounter for general adult medical examination with abnormal findings, Z13.220 - Encounter for screening for lipoid disorders, Z13.1 - Encounter for screening for diabetes mellitus, Z28.21 - Immunization not carried out because of patient refusal Medications: New Zepbound (tirzepatide (weight loss)) 5 mg (0.5 mL) subcut QWEEK 2 mL 1RF NS E66.9 - Obesity, unspecified, Z68.35 - Body mass index [BMI] 35.0-35.9, adult, E78.5 - Hyperlipidemia, unspecified, R73.01 - Impaired fasting glucose valacyclovir 500 mg PO Q12H PRN 6 tabs 3RF Genital herpes recurrent 3 days
--- OUTSIDE RECORDS SUMMARY | 2025-07-20 13:45 | XMS_ITS | Patient Health Record ---
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 Name Role Phone KAMALA PONCE Primary Care Provider Unaute MARCUSHAM NAKUL Unavailable [phone] Allergies Allergen (clinical drug ingredient) Drug/Non Drug Allergy documented on EMR Reaction Allergy Type Onset Date Status morphine Morphine rash Drug Allergy Active Reason For Referral No Information Medications Medication SIG (Take, Route, Frequency, Duration) [...] 0.05 % External; Duration: 30 Days Not-Taking Problems Problem Type SNOMED Code ICD Code Onset Dates Problem Status W/U Status Risk Notes Problem Obesity (727205165) Obesity (BMI 30-39.9) (E66.9) Active confirmed Problem Obese class II (1197000164898 05) BMI 35.0-35.9,adul t (Z68.35) Active confirmed Problem History of bariatric surgery (641357386) History of bariatric surgery (Z98.84) Active confirmed Vital Signs Heart Rate 100 /min 05/30/2025 Oximetry 98 % 05/30/2025 Blood pressure diastolic 78 mm Hg 05/30/2025 Height 61 in 05/30/2025 Blood pressure systolic 114 mm Hg 05/30/2025 Weight 190.3 lbs 05/30/2025 BMI 35.95 kg/m2 05/30/2025 Encounters Encounter Location Date Provider Diagnosis [facility] [address] [place] [address] 07/04/2025 NAKUL SERRA Obesity (BMI 30-39.9 ) E66.9 ; BMI 35.0-35.9,adult Z68.35 ; History of bariatric surgery Z98.84 ; Nutritional counseling Z71.3 and Encounter for examination of blood pressure without abnormal findings Z01.30 [facility] [address] [facility] [address] [place] [address] 05/30/2025 NAKUL SERRA Obesity (BMI 30-39.9 ) E66.9 ; BMI 35.0-35.9,adult Z68.35 ; History of bariatric surgery Z98.84 ; Nutritional counseling Z71.3 and Encounter for examination of blood pressure without abnormal findings Z01.30 [facility] [address] [facility] [address] [place] [address] 05/30/2025 NAKUL [place] [facility] [address] [facility] [address] [place] [address] 07/05/2025 NAKUL MARCUSHAM Assessments Encounter Date Diagnosis (ICD Code) Assessment Notes Treatment Notes Treatment Clinical Notes Section Notes 05/30/2025 Obesity (BMI 30-39.9) (ICD-10 - E66.9) Rebeca is a 49-year-old female with history depression, bariatric surgery that presents for weight management consult.Patient was reassured and welcomed to the practice. Discussed [facility] holistic and medical approach to weight loss with emphasis on lifestyle modification. Patient is educated that a healthy lifestyle aids in combating obesity as well as reducing the risk of developing obesity-related medical complications including but not limited to diabetes and cardiovascular disease. Detailed education provided about taking steps to initiate sustainable lifestyle changes including incorporating regular physical activity, making healthy diet choices, and prioritizing mental health. Information provided about literature including The Food Rules by Jose Duarte and Eat Fat Get Lean by Dr Trevor Ng. Handouts including lifestyle checklist, protein content of food, low calorie snacks, and cholesterol information sheet provided. Diagnostic testing/ SECA scale offered. Discussed the importance of regular SECA scale measurements to ensure healthy weight loss. 05/30/2025: Weight: 190.3, BMI: 35.9. Reviewed SECA/goals for implementing sustainable lifestyle changes. Patient is encouraged to increase physical activity, goal 8-10k steps/day. Also discussed the importance of strength training with proper safety/body mechanics for maintenance of muscle mass/bone health. Patient encouraged to drink 60-80oz water/day. Reviewed nutrition, recommending food diary x 1 week to ensure adequate caloric/protein intake. Goal of 80-100g protein/day. Reviewed risks, benefits, and side effects of weight management medications including phentermine, Topamax, Contrave, metformin, and GLP-1 agonist. Patient interested in GLP-1/GIP agonist Zepbound. Denies personal/family history of medullary thyroid cancer/M EN syndrome. Rx for Zepbound 2.5 mg SC weekly sent to pharmacy. Reviewed proper use, side effects, and expectations for PA process/insurance coverage. After consultation and careful review of medical history, this patient would benefit from Zepbound based off of the following criteria met: Patient is over the age of 18 with a BMI of 35.9. Patient has trialed other methods of weight loss including improving diet and exercise, bariatric surgery, NutriSystem, semaglutide, phentermine, etc. without success over at least three months. This medication is prescribed by or in consultation with a board-certified obesity and weight management physician (Dr. Mary Garcia or Dr. Yanira Garcia). All questions answered to the patient's satisfaction. Patient demonstrates understanding of diagnosis and treatments discussed. Follow-up at next scheduled appointment, sooner should any questions/concerns arise. Case discussed with collaborating physician Sebastian Garcia who has reviewed the assessment/plan. Chart, medications, labs, and vital signs reviewed. Dictation completed with the use of Merlin voice recognition software, prone to medical misidentifications and grammatical errors. All errors are unintentional. Although the practitioner does try to identify and correct errors, some may be present. Please do not hesitate to contact the practitioner for clarification. Total time was 60 minutes spent with greater than 50% on coordination of care and patient education. 05/30/2025 BMI 35.0-35.9,adul t (ICD-10 - Z68.35) Rebeca is a 49-year-old female with history depression, bariatric surgery that presents for weight management consult.Patient was reassured and welcomed to the practice. Discussed [facility] holistic and medical approach to weight loss with emphasis on lifestyle modification. Patient is educated that a healthy lifestyle aids in combating obesity as well as reducing the risk of developing obesity-related medical complications including but not limited to diabetes and cardiovascular disease. Detailed education provided about taking steps to initiate sustainable lifestyle changes including incorporating regular physical activity, making healthy diet choices, and prioritizing mental health. Information provided about literature including The Food Rules by Jose Duarte and Eat Fat Get Lean by Dr Trevor Ng. Handouts including lifestyle checklist, protein content of food, low calorie snacks, and cholesterol information sheet provided. Diagnostic testing/ SECA scale offered. Discussed the importance of regular SECA scale measurements to ensure healthy weight loss. 05/30/2025: Weight: 190.3, BMI: 35.9. Reviewed SECA/goals for implementing sustainable lifestyle changes. Patient is encouraged to increase physical activity, goal 8-10k steps/day. Also discussed the importance of strength training with proper safety/body mechanics for maintenance of muscle mass/bone health. Patient encouraged to drink 60-80oz water/day. Reviewed nutrition, recommending food diary x 1 week to ensure adequate caloric/protein intake. Goal of 80-100g protein/day. Reviewed risks, benefits, and side effects of weight management medications including phentermine, Topamax, Contrave, metformin, and GLP-1 agonist. Patient interested in GLP-1/GIP agonist Zepbound. Denies personal/family history of medullary thyroid cancer/M EN syndrome. Rx for Zepbound 2.5 mg SC weekly sent to pharmacy. Reviewed proper use, side effects, and expectations for PA process/insurance coverage. After consultation and careful review of medical history, this patient would benefit from Zepbound based off of the following criteria met: Patient is over the age of 19 with a BMI of 35.9. Patient has trialed other methods of weight loss including improving diet and exercise, bariatric surgery, NutriSystem, semaglutide, phentermine, etc. without success over at least three months. This medication is prescribed by or in consultation with a board-certified obesity and weight management physician (Dr. Mary Garcia or Dr. Yanira Garcia). All questions answered to the patient's satisfaction. Patient demonstrates understanding of diagnosis and treatments discussed. Follow-up at next scheduled appointment, sooner should any questions/concerns arise. Case discussed with collaborating physician Sebastian Garcia who has reviewed the assessment/plan. Chart, medications, labs, and vital signs reviewed. Dictation completed with the use of Dragon voice recognition software, prone to medical misidentifications and grammatical errors. All errors are unintentional. Although the practitioner does try to identify and correct errors, some may be present. Please do not hesitate to contact the practitioner for clarification. Total time was 60 minutes spent with greater than 50% on coordination of care and patient education. 07/04/2025 Obesity (BMI 30-39.9) (ICD-10 - E66.9) [...] reviewed. Dictation completed with the use of [employer] voice recognition software, prone to medical misidentifications and grammatical errors. All errors are unintentional. Although the practitioner does try to identify and correct errors, some may be present. Please do not hesitate to contact the practitioner for clarification. Total time was 30 minutes spent with greater than 50% on coordination of care and patient education. 07/04/2025 BMI 35.0-35.9,adul t (ICD-10 - Z68.35) Rebeca is a 50-year-old [...] Dragon voice recognition software, prone to medical misidentifications and grammatical errors. All errors are unintentional. Although the practitioner does try to identify and correct errors, some may be present. Please do not hesitate to contact the practitioner for clarification. Total time was 30 minutes spent with greater than 50% on coordination of care and patient education. 05/30/2025 History of bariatric surgery (ICD-10 - Z98.84) Rebeca is a 49-year-old female with history depression, bariatric surgery that presents for weight management consult.Patient was reassured and welcomed to the practice. Discussed [facility] holistic and medical approach to weight loss with emphasis on lifestyle modification. Patient is educated that a healthy lifestyle aids in combating obesity as well as reducing the risk of developing obesity-related medical complications including but not limited to diabetes and cardiovascular disease. Detailed education provided about taking steps to initiate sustainable lifestyle changes including incorporating regular physical activity, making healthy diet choices, and prioritizing mental health. Information provided about literature including The Food Rules by Jose Duarte and Eat Fat Get Lean by Dr Trevor Ng. Handouts including lifestyle checklist, protein content of food, low calorie snacks, and cholesterol information sheet provided. Diagnostic testing/ SECA scale offered. Discussed the importance of regular SECA scale measurements to ensure healthy weight loss. 05/30/2025: Weight: 190.3, BMI: 35.9. Reviewed SECA/goals for implementing sustainable lifestyle changes. Patient is encouraged to increase physical activity, goal 8-10k steps/day. Also discussed the importance of strength training with proper safety/body mechanics for maintenance of muscle mass/bone health. Patient encouraged to drink 60-80oz water/day. Reviewed nutrition, recommending food diary x 1 week to ensure adequate caloric/protein intake. Goal of 80-100g protein/day. Reviewed risks, benefits, and side effects of weight management medications including phentermine, Topamax, Contrave, metformin, and GLP-1 agonist. Patient interested in GLP-1/GIP agonist Zepbound. Denies personal/family history of medullary thyroid cancer/M EN syndrome. Rx for Zepbound 2.5 mg SC weekly sent to pharmacy. Reviewed proper use, side effects, and expectations for PA process/insurance coverage. After consultation and careful review of medical history, this patient would benefit from Zepbound based off of the following criteria met: Patient is over the age of 19 with a BMI of 35.9. Patient has trialed other methods of weight loss including improving diet and exercise, bariatric surgery, NutriSystem, semaglutide, phentermine, etc. without success over at least three months. This medication is prescribed by or in consultation with a board-certified obesity and weight management physician (Dr. Mary Garcia or Dr. Yanira Garcia). All questions answered to the patient's satisfaction. Patient demonstrates understanding of diagnosis and treatments discussed. Follow-up at next scheduled appointment, sooner should any questions/concerns arise. Case discussed with collaborating physician Sebastian Garcia who has reviewed the assessment/plan. Chart, medications, labs, and vital signs reviewed. Dictation completed with the use of Merlin voice recognition software, prone to medical misidentifications and grammatical errors. All errors are unintentional. Although the practitioner does try to identify and correct errors, some may be present. Please do not hesitate to contact the practitioner for clarification. Total time was 60 minutes spent with greater than 50% on coordination of care and patient education. 05/30/2025 Nutritional counseling (ICD-10 - Z71.3) Rebeca is a 49-year-old female with history depression, bariatric surgery that presents for weight management consult.Patient was reassured and welcomed to the practice. Discussed [facility] holistic and medical approach to weight loss with emphasis on lifestyle modification. Patient is educated that a healthy lifestyle aids in combating obesity as well as reducing the risk of developing obesity-related medical complications including but not limited to diabetes and cardiovascular disease. Detailed education provided about taking steps to initiate sustainable lifestyle changes including incorporating regular physical activity, making healthy diet choices, and prioritizing mental health. Information provided about literature including The Food Rules by Jose Duarte and Eat Fat Get Lean by Dr Trevor Ng. Handouts including lifestyle checklist, protein content of food, low calorie snacks, and cholesterol information sheet provided. Diagnostic testing/ SECA scale offered. Discussed the importance of regular SECA scale measurements to ensure healthy weight loss. 05/30/2025: Weight: 190.3, BMI: 35.9. Reviewed SECA/goals for implementing sustainable lifestyle changes. Patient is encouraged to increase physical activity, goal 8-10k steps/day. Also discussed the importance of strength training with proper safety/body mechanics for maintenance of muscle mass/bone health. Patient encouraged to drink 60-80oz water/day. Reviewed nutrition, recommending food diary x 1 week to ensure adequate caloric/protein intake. Goal of 80-100g protein/day. Reviewed risks, benefits, and side effects of weight management medications including phentermine, Topamax, Contrave, metformin, and GLP-1 agonist. Patient interested in GLP-1/GIP agonist Zepbound. Denies personal/family history of medullary thyroid cancer/M EN syndrome. Rx for Zepbound 2.5 mg SC weekly sent to pharmacy. Reviewed proper use, side effects, and expectations for PA process/insurance coverage. After consultation and careful review of medical history, this patient would benefit from Zepbound based off of the following criteria met: Patient is over the age of 19 with a BMI of 35.9. Patient has trialed other methods of weight loss including improving diet and exercise, bariatric surgery, NutriSystem, semaglutide, phentermine, etc. without success over at least three months. This medication is prescribed by or in consultation with a board-certified obesity and weight management physician (Dr. Mary Garcia or Dr. Yanira Garcia). All questions answered to the patient's satisfaction. Patient demonstrates understanding of diagnosis and treatments discussed. Follow-up at next scheduled appointment, sooner should any questions/concerns arise. Case discussed with collaborating physician Sebastian Garcia who has reviewed the assessment/plan. Chart, medications, labs, and vital signs reviewed. Dictation completed with the use of Merlin voice recognition software, prone to medical misidentifications and grammatical errors. All errors are unintentional. Although the practitioner does try to identify and correct errors, some may be present. Please do not hesitate to contact the practitioner for clarification. Total time was 60 minutes spent with greater than 50% on [...] reviewed. Dictation completed with the use of Merlin voice recognition software, prone to medical misidentifications and grammatical errors. All errors are unintentional. Although the practitioner does try to identify and correct errors, some may be present. Please do not hesitate to contact the practitioner for clarification. Total time was 30 minutes spent with greater than 50% on coordination of care and patient education. 05/30/2025 Encounter for examination of blood pressure without abnormal findings (ICD-10 - Z01.30) Rebeca is a 49-year-old female with history depression, bariatric surgery that presents for weight management consult.Patient was reassured and welcomed to the practice. Discussed [facility] holistic and medical approach to weight loss with emphasis on lifestyle modification. Patient is educated that a healthy lifestyle aids in combating obesity as well as reducing the risk of developing obesity-related medical complications including but not limited to diabetes and cardiovascular disease. Detailed education provided about taking steps to initiate sustainable lifestyle changes including incorporating regular physical activity, making healthy diet choices, and prioritizing mental health. Information provided about literature including The Food Rules by Jose Duarte and Eat Fat Get Lean by Dr Trevor Ng. Handouts including lifestyle checklist, protein content of food, low calorie snacks, and cholesterol information sheet provided. Diagnostic testing/ SECA scale offered. Discussed the importance of regular SECA scale measurements to ensure healthy weight loss. 05/30/2025: Weight: 190.3, BMI: 35.9. Reviewed SECA/goals for implementing sustainable lifestyle changes. Patient is encouraged to increase physical activity, goal 8-10k steps/day. Also discussed the importance of strength training with proper safety/body mechanics for maintenance of muscle mass/bone health. Patient encouraged to drink 60-80oz water/day. Reviewed nutrition, recommending food diary x 1 week to ensure adequate caloric/protein intake. Goal of 80-100g protein/day. Reviewed risks, benefits, and side effects of weight management medications including phentermine, Topamax, Contrave, metformin, and GLP-1 agonist. Patient interested in GLP-1/GIP agonist Zepbound. Denies personal/family history of medullary thyroid cancer/M EN syndrome. Rx for Zepbound 2.5 mg SC weekly sent to pharmacy. Reviewed proper use, side effects, and expectations for PA process/insurance coverage. After consultation and careful review of medical history, this patient would benefit from Zepbound based off of the following criteria met: Patient is over the age of 19 with a BMI of 35.9. Patient has trialed other methods of weight loss including improving diet and exercise, bariatric surgery, NutriSystem, semaglutide, phentermine, etc. without success over at least three months. This medication is prescribed by or in consultation with a board-certified obesity and weight management physician (Dr. Mary Garcia or Dr. Yanira Garcia). All questions answered to the patient's satisfaction. Patient demonstrates understanding of diagnosis and treatments discussed. Follow-up at next scheduled appointment, sooner should any questions/concerns arise. Case discussed with collaborating physician Sebastian Garcia who has reviewed the assessment/plan. Chart, medications, labs, and vital signs reviewed. Dictation completed with the use of Merlin voice recognition software, prone to medical misidentifications and grammatical errors. All errors are unintentional. Although the practitioner does try to identify and correct errors, some may be present. Please do not hesitate to contact the practitioner for clarification. Total time was 60 minutes spent with greater than 50% on [...] reviewed. Dictation completed with the use of Merlin voice recognition software, prone to medical misidentifications [...] reviewed. Dictation completed with the use of Merlin voice recognition software, prone to medical misidentifications and grammatical errors. All errors are unintentional. Although the practitioner does try to identify and correct errors, some may be present. Please do not hesitate to contact the practitioner for clarification. Total time was 30 minutes spent with greater than 50% on coordination of care and patient education. Plan Of Treatment Pending Test Test Name Order Date LIPID PANEL, STANDARD 05/30/2025 COMPREHENSIVE METABOLIC PANEL 05/30/2025 CBC (INCLUDES DIFF/PLT) 05/30/2025 HEMOGLOBIN A1c 05/30/2025 TSH W/REFLEX TO FT4 05/30/2025 VITAMIN D,25-OH,TOTAL,IA 05/30/2025 Insurance Providers Payer Name Payer Address Payer Phone Subscriber Number Group Number Insured Name Patient Relationship to Insured Coverage Start Date Coverage End Date [facility] [employer] [address] [place] [address] [id number] Rebeca Francois Self - patient is the insured Medications Administered Medication Instructions Date of Administration Dosage Notes MICC B12 INJECTION 05/30/2025 1 mL Medical (General) History Surgical History Surgery Date(Month/Year) Complete hysterectomy 12/04/2024 VSG 2016 Tummy tuck 2017 Breast lift 2019 cholecystectomy 2003 Hospitalization History Reason Date(Month/Year) Ectopic pregnancies
== END 2025-07-20 14:53 | disposition home or self-care (01) ==
LOC: HO.HMCC 12:54
PROVIDERS: PCP Internal Medicine; Visit Provider Internal Medicine
DX: Z00.01 Encounter for general adult medical examination with abnormal findings (principal); Z28.21 Immunization not carried out because of patient refusal; E66.9 Obesity, unspecified; Z68.35 Body mass index [BMI] 35.0-35.9, adult; E89.41 Symptomatic postprocedural ovarian failure

== ENCOUNTER → 2025-07-20 12:53 | Outpatient (BNVA) | payer BC, SELFPAY | PROVIDERS: PCP Internal Medicine; Visit Provider Internal Medicine | DX: Z00.01 Encounter for general adult medical examination with abnormal findings (principal); B00.9 Herpesviral infection, unspecified; R73.03 Prediabetes; E78.5 Hyperlipidemia, unspecified; R10.9 Unspecified abdominal pain; E66.9 Obesity, unspecified; E89.41 Symptomatic postprocedural ovarian failure; Z68.35 Body mass index [BMI] 35.0-35.9, adult | CPT/HCPCS: 96127 ==

== ENCOUNTER 2025-08-05 15:24 | Outpatient (REF) | payer BC, SELFPAY ==
--- OUTSIDE RECORDS SUMMARY | 2025-07-04 11:15 | XMS_ITS ---
Author Organization [facility] [address] Address [address] [place] [address] Care Team Providers Care Director Supply Chain Name Role Phone KAMALA PONCE Primary Care Provider NAKUL Albright Unavailable [phone] Medications Medication SIG (Take, Route, Frequency, Duration) Notes Start Date End Date Status Zepbound 2.5 MG/0.5ML Inject 2.5mg Subcutaneous once weekly; Duration: 30 days Active valACYclovir HCl 1 GM TAKE 2 TABLETS (20 00 MG) BY MOUTH ONCE Oral; Duration: 1 Days Not-Taking hydrOXYzine HCl 25 MG 1 tablet as needed Oral Once a day; Duration: 14 days Not-Taking Clobetasol Propionate 0.05 % External; Duration: 30 Days Not-Taking Encounters Encounter Location Date Provider Diagnosis [facility] [address] [place] [id number] 07/04/2025 NAKUL SERRA Obesity (BMI 30-39.9 ) [...] reviewed. Dictation completed with the use of [employer] voice recognition software, prone to medical misidentification [...] reviewed. Dictation completed with the use of [email or web address] voice recognition software, prone to medical misidentification [...] reviewed. Dictation completed with the use of [employer] voice recognition software, prone to medical misidentification [...] Date Stop Date Notes Zepbound 2.5 MG/0.5ML Inject 2.5mg Subcu taneous once weekly; Duration: 30 days Progress Notes * Rebeca FRANCOISDOB:1975 (50 yo F)Acc No.[id number]:07/04/2025 Patient: Rebeca COLINDRES Provider: Feliz SERRA PA-C :1975 A ge:50 Y S ex:Female Date:07/04/2025 Address:[address] [place], [place] [id number] Pcp:KAMALA PONCE Subjective: * Chief Complaints: * * HPI: C onstitutional: Rebeca is a 49-year-old female with history depression, bariatric surgery that presents for weight management follow up. Currently taking Zepbound 2.5 mg SC weekly with compliance. Reports adequate appetite suppression. Denies the presence of side effects including nausea, vomiting, constipation, or abdominal pain. 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 Breakfast is [...] negative except those mentioned in HPI. * Medical History: * Medications: T aking Zepbound 2.5 MG/0.5ML Solution Auto-injector Inject 2.5mg Subcutaneous once weekly , Not-Taking hydrOXYzine HCl 25 MG Tablet 1 tablet as needed Oral Once a day , Not-Taking Clobetasol Propionate 0.05 % Cream External , Not-Taking valACYclovir HCl 1 GM Tablet TAKE 2 TABLETS (2000 MG) BY MOUTH ONCE Oral Objective: * Vitals: * Physical Examination: G eneral: Age appropriate, [...] 30-39.9) - E66.9 (Primary) 2 . B MS 35.0-35.9,adult - Z68.35 3 . H istory [...] reviewed. Dictation completed with the use of [email or web address] voice recognition software, prone to medical misidentifications [...] Codes: 9 9199 NO SHOW OFFICE VISIT * Images: Billing Information: * Visit Code: * Procedure Codes: 46602 NO SHOW OFFICE VISIT. * Electronic signature of KEO SERRA PA-C on 08/05/2025 at 03:31 PM EDT Sign off status: Pending * Provider: Feliz SERRA PA-C Date: 0 07/04/2025 Generated for Gabriella nance/Gordo/Sharitting on: 0 08/05/2025 03:31 PM EDT History and Physical Notes * Physical Examination [...]
--- NOTE | ~2025-08-05 | MM_ITS ---
EXAMINATION: MM SCREENING DIGITAL BREAST TOMOSYNTHESIS, BILATERAL CLINICAL INFORMATION: Screening. Asymptomatic. COMPARISON: Mammography: Comparison is made with relevant avialable priors. TECHNIQUE: Digital mammography is performed in craniocaudal and mediolateral oblique views along with computer-aided detection (CAD). Digital breast tomosynthesis is performed in implant-displaced craniocaudal and implant-displaced mediolateral oblique views along with computer-aided detection (CAD). FINDINGS: The breasts are heterogeneously dense, which may obscure small masses (ACR BI-RADS breast composition Category c). Bilateral retropectoral implants are stable appearing. Bilateral circumscribed oval masses which wax and wane consistent with benign fibrocystic changes. Some were demonstrated to be simple cysts on prior ultrasounds. Left: Asymmetry superior breast middle depth on MLO view question postsurgical changes, question correlate lateral breast posterior depth on CC view. No suspicious calcifications or other abnormal findings. Right: There are no significant masses, abnormal calcifications, or other abnormalities. MM/MM tomosynthesis screen imp BI IMPRESSION: Left breast asymmetry for which additional imaging is recommended at this time. ASSESSMENT: BI-RADS BI-RADS 0 - Incomplete: Needs additional Imaging. RECOMMENDATION: 1. Additional views of the left breast 2. Targeted ultrasound if warranted after review of the additional views. 3. Radiology department staff will contact the patient for additional imaging. Additional Imaging required This patient's information was entered into a reminder system with a target due date for their next mammogram. Electronically signed by: Gillian Jernigan DO 08/09/2025 09:01 AM EDT
--- OUTSIDE RECORDS SUMMARY | 2025-08-05 15:32 | XMS_ITS | Patient Health Record ---
Author Organization [facility] Address [address] [place] [address] Care Team Providers Care Quality Assurance Consultant Name Role Phone KAMALA PONCE Primary Care Provider Unaute MARCUSHAM NAKUL Unavailable [phone] Allergies Allergen (clinical drug ingredient) Drug/Non Drug [...] Status W/U Status Risk Notes Problem Obesity (243937852) Obesity (BMI 30-39.9) (E66.9) Active confirmed Problem Obese class II (5633325249380 05) BMI 35.0-35.9,adul t (Z68.35) Active confirmed Problem History of bariatric surgery (935960680) History of bariatric surgery (Z98.84) Active confirmed Vital Signs Heart Rate 100 /min 05/30/2025 Oximetry 98 % 05/30/2025 Blood pressure diastolic 78 mm Hg 05/30/2025 Height 61 in 05/30/2025 Blood pressure systolic 114 mm Hg 05/30/2025 Weight 190.3 lbs 05/30/2025 BMI 35.95 kg/m2 05/30/2025 Encounters Encounter Location Date Provider Diagnosis [facility] [address] [place] [address] 07/04/2025 NAKUL SERRA Obesity (BMI 30-39.9 ) E66.9 ; BMI 35.0-35.9,adult Z68.35 ; History of bariatric surgery Z98.84 ; Nutritional counseling Z71.3 and Encounter for examination of blood pressure without abnormal findings Z01.30 [facility] [address] [facility] [address] [place] [address] 05/30/2025 NAKUL SERRA Obesity (BMI 30-39.9 ) E66.9 ; BMI 35.0-35.9,adult Z68.35 ; History of bariatric surgery Z98.84 ; Nutritional counseling Z71.3 and Encounter for examination of blood pressure without abnormal findings Z01.30 [facility] [address] [facility] [address] [place] [address] 05/30/2025 NAKUL MENASHA [facility] [address] [facility] [address] [place] [address] 07/05/2025 NAKUL MARCUSHAM Assessments Encounter Date Diagnosis [...] reviewed. Dictation completed with the use of [employer] voice recognition software, prone to medical misidentifications [...] reviewed. Dictation completed with the use of [employer] voice recognition software, prone to medical misidentifications [...] reviewed. Dictation completed with the use of [employer] voice recognition software, prone to medical misidentifications [...] reviewed. Dictation completed with the use of [employer] voice recognition software, prone to medical misidentifications [...] reviewed. Dictation completed with the use of [employer] voice recognition software, prone to medical misidentifications [...] reviewed. Dictation completed with the use of [employer] voice recognition software, prone to medical misidentifications [...] reviewed. Dictation completed with the use of [employer] voice recognition software, prone to medical misidentifications [...] reviewed. Dictation completed with the use of [employer] voice recognition software, prone to medical misidentifications [...] Insured Coverage Start Date Coverage End Date [facility] [address] [place] [address] [id number] Rebeca Francois Self - patient is the insured Medications Administered Medication Instructions Date of Administration Dosage Notes MICC B12 INJECTION 05/30/2025 1 mL Medical (General) History Surgical History Surgery Date(Month/Year) Complete hysterectomy 12/04/2024 VSG 2016 Tummy tuck 2017 Breast lift 2019 cholecystectomy 2003 Hospitalization History Reason Date(Month/Year) Ectopic pregnancies
== END 2025-08-05 15:25 | disposition home or self-care (01) ==
LOC: HO.MAMMO 15:24
PROVIDERS: PCP Internal Medicine; Visit Provider Obstetrics & Gynecology
DX: Z12.31 Encounter for screening mammogram for malignant neoplasm of breast (principal)
CPT/HCPCS: 77063; 77067

== ENCOUNTER → 2025-08-05 15:45 | Outpatient (BNV) | payer BC, SELFPAY | PROVIDERS: PCP Internal Medicine; Visit Provider Internal Medicine | DX: Z12.31 Encounter for screening mammogram for malignant neoplasm of breast (principal) | CPT/HCPCS: 77063; 77067 ==

== ENCOUNTER → 2025-08-29 08:00 | Outpatient (BNV) | payer BC, SELFPAY | PROVIDERS: PCP Internal Medicine; Visit Provider Radiology Body Imaging | DX: R92.8 Other abnormal and inconclusive findings on diagnostic imaging of breast (principal) | CPT/HCPCS: 76642; 77061; 77065 ==

== ENCOUNTER 2025-08-29 08:04 | Outpatient (REF) | payer BC, SELFPAY ==
--- NOTE | ~2025-08-29 | US_ITS ---
EXAMINATION(S): 1. MM DIAGNOSTIC DIGITAL BREAST TOMOSYNTHESIS, LEFT 2. Targeted ultrasound of the left breast CLINICAL INFORMATION: Callback from screening for left breast asymmetry in the superior breast middle depth on the MLO view. Possible correlate in the lateral breast posterior depth on the CC view. COMPARISON: Comparison made to multiple prior, most recent August 05, 2025, and most remote October 27, 2019. TECHNIQUE: Digital breast tomosynthesis is performed in full field ML 90 degrees along with computer-aided detection (CAD). Synthesized 2D images are generated from the tomosynthesis. Spot compression tomosynthesis were obtained. Images were obtained with displaced implants. FINDINGS: BREAST COMPOSITION: The breasts are heterogeneously dense, which may obscure small masses. LEFT BREAST: Previously suggested focal asymmetry in the upper outer quadrant is pliable on today's additional images. Targeted ultrasound of the left breast was performed at the location of the mammographic finding. The survey throughout the upper outer quadrant did not reveal suspicious sonographic correlate. US/US breast LT limited mamm only IMPRESSION: LEFT BREAST: Pliable focal asymmetry in the upper outer quadrant. Could be a combination of fibroglandular breast tissue and postsurgical changes as previously mentioned. No suspicious sonographic correlate. Probably benign. A 6-month follow-up mammogram is recommended. ASSESSMENT: Category 3: Probably benign RECOMMENDATION: 6 Month F/U Results were provided to the patient at time of visit by the technologist. This patient's information was entered into a reminder system with a target due date for their next mammogram. Electronically signed by: Tiffany Guevara MD 08/29/2025 09:09 AM EDT
== END 2025-08-29 08:05 | disposition home or self-care (01) ==
LOC: HO.MAMMO 08:04
PROVIDERS: PCP Internal Medicine; Visit Provider Obstetrics & Gynecology
DX: N64.89 Other specified disorders of breast (principal)
CPT/HCPCS: 76642; 77061; 77065

== ENCOUNTER 2025-08-31 10:36 | Outpatient (AMB) | payer BC, SELFPAY ==
--- OUTSIDE RECORDS SUMMARY | 2025-07-04 11:15 | XMS_ITS ---
Author Organization [facility] [address] Address [address] [place] [address] Care Team Providers Care Produce Sorter Name Role Phone KAMALA PONCE Primary Care Provider NAKUL Albright Unavailable [phone] Medications Medication SIG (Take, Route, Frequency, Duration) [...] Location Date Provider Diagnosis [facility] [address] [place] [phone] 07/04/2025 NAKUL SERRA Obesity (BMI 30-39.9 ) [...] reviewed. Dictation completed with the use of [employer] voice recognition software, prone to medical misidentification [...] reviewed. Dictation completed with the use of [employer] voice recognition software, prone to medical misidentification [...] reviewed. Dictation completed with the use of [employer] voice recognition software, prone to medical misidentification [...] Notes * Rebeca FRANCOISDOB:1975 (50 yo F)Acc No.[id number]:07/04/2025 Patient: Rebeca COLINDRES Provider: Feliz SERRA PA-C :1975 A ge:50 Y S ex:Female Date:07/04/2025 Address:[address] [place], [place] [phone] Pcp:KAMALA PONCE Subjective: * Chief Complaints: * * HPI: C onstitutional: Rebeca is a 49-year-old female with history depression, bariatric surgery that presents for weight management follow up. Currently taking Zepbound 2.5 mg SC weekly with compliance. Reports adequate appetite suppression. Denies the presence of side effects including nausea, vomiting, constipation, or abdominal pain. 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 Breakfast is [...] 30-39.9) - E66.9 (Primary) 2 . B FL 35.0-35.9,adult - Z68.35 3 . H istory [...] reviewed. Dictation completed with the use of [employer] voice recognition software, prone to medical misidentifications [...] Information: * Visit Code: * Procedure Codes: 47396 NO SHOW OFFICE VISIT. * Electronic signature of KEO SERRA PA-C on 08/31/2025 at 12:12 PM EDT Sign off status: Pending * Provider: Feliz SERRA PA-C Date: 0 07/04/2025 Generated for Gabriella nance/Gordo/Sharitting on: 1 12:12 PM EDT History and Physical Notes * [...]
[2025-08-31 11:23] VITALS: BP 118/88; PULSE 73; RESP 15; TEMP 36.8; O2SAT 95; BMI 33.3
--- NOTE | 2025-08-31 11:23 | MHC.PC.OV ---
Vital Signs 08/31/25 11:23 Height 5 ft 2 in Weight 182 lb BMI 33.3 BP 118/88 Blood Pressure Location Rt brachial Position Sitting Respiration 15 Pulse 73 Pulse Source Pulse Oximeter Temp 98.2 F Temp Source Oral Pulse Oximetry (%) 95 Oxygen Delivery Method Room Air Intake Visit Reasons: wgt in Intake Note: Pt is here today for her weigh in Allergies morphine (MORPHINE) Allergy (Mild, Verified 08/31/25 11:31) RASH, hives metronidazole (Flagyl) Allergy (Unknown, Verified 08/31/25 11:31) shaking,dizziness, vision changes Medication List - Last Reconciled 08/31/25 by Yvette Kellogg MD valacyclovir 500 mg PO Q12H PRN 3 days Zepbound (tirzepatide (weight loss)) 5 mg (0.5 mL) subcut QWEEK NS Tobacco use date assessed: 08/31/25 Dental Screening Dental Screen Date: 08/31/25 Did you have a dental visit in the last 12 months?: Yes Did you have a dental problem in the last 6 months where you did not have access to dental care?: No Was dental information given to patient?: Patient has dentist HPI wgt in HPI Details 50-year-old lady With a history of impaired fear fasting glucose, dyslipidemia, obesity,here today for follow-up on her weight. Currently on Zepbound 5 mg injected subcutaneously once a week.She has had a weight loss of 9 pounds since July, currently weighing 182 pounds, down from 193 pounds. The patient reports experiencing constipation, which she manages with Senokot and fiber pills. She notes that the medication decreases gastrointestinal motility, contributing to her symptoms. The patient is prone to recurrent yeast infections and has been prescribed fluconazole in the past. She plans to have her blood work done on a Friday due to the requirement for fasting. [facility] Medical History Impaired fasting glucose Dyslipidemia IBS (irritable bowel syndrome) Abnormal Pap smear of cervix Miscarriage of left tubal ectopic History of ovarian cyst Pelvic pain Immunization refused Obesity Intermittent palpitations Perianal abscess Abnormal MRI, pelvis Renal calculi Endometriosis Abnormal pelvic ultrasound Ectopic Genital herpes Surgical History S/P LUCAS-BSO (total abdominal hysterectomy and bilateral salpingo-oophorectomy) History of left oophorectomy Hx of colonoscopy H/O abdominoplasty History of endometrial ablation History of loop electrical excision procedure (LEEP) H/O breast augmentation H/O gastric sleeve Hx of dilation and curettage Hx of cholecystectomy Family History Maternal Grandmother History of breast cancer Father Substance use disorder Mental health disorder Mother Substance use disorder Mental health disorder Paternal Uncle Substance use disorder Mental health disorder Maternal Uncle Substance use disorder Mental health disorder Maternal Uncle Substance use disorder Mental health disorder Maternal Uncle Substance use disorder Mental health disorder Social History Housing: House Alcohol intake: never Patient Tobacco Use Status: Never used Tobacco e-Cigarette/Vaping Use: Never Used Second Hand Smoke Exposure: Yes service: No Current occupational status: employed and unemployed Sexual orientation: Straight/Heterosexual Gender identity: Female Cognitive needs: No Hearing needs: No Vision needs: Yes Female Reproductive History Menstrual Age of Menarche: 12 Questionnaire PHQ-9 Over the last 2 weeks, how often have you been bothered by any of the following problems? 1. Little interest or pleasure in doing things: several days 2. Feeling down, depressed, or hopeless: not at all 3. Trouble falling or staying asleep, or sleeping too much: several days 4. Feeling tired or having little energy: not at all 5. Poor appetite or overeating: not at all 6. Feeling bad about yourself - or that you are a failure or have let yourself or your family down: not at all 7. Trouble concentrating on things, such as reading the newspaper or watching television: several days 8. Moving or speaking so slowly that other people could have noticed. Or the opposite - being so fidgety or restless that you have been moving around a lot more than usual: not at all 9. Thoughts that you would be better off or of hurting yourself in some way: not at all Total score: 3 Depression Screening Interpretation: Negative Depression Screening Done: Yes Source: Developed by Drs. Jay Dahl, Vaishali Jose Joseph and colleagues, with an educational faustino from [employer] Thrive Questionnaire Date Thrive assessed: 07/20/25 I am a: Patient What is your living situation today?: I have a steady place to live Within the past 12 months, did the food you bought not last and you didn't have the money to get more?: Never true Within the past 12 months, did you worry whether your food would run out before you got money to buy more?: Never true Do you have trouble paying for medicines?: No Do you have trouble getting transportation to medical appointments?: No Do you have trouble paying your heating and electricity bill?: No Do you have trouble taking care of your child, family member or friend?: No Do you have trouble with day-to-day activities such as bathing, preparing meals, shopping, managing finances, etc.?: No Are you currently unemployed and looking for a job?: No Are you interested in more education?: No Please select the resources that you would like help with: None Currently or been in a relationship where the following occur: No concerns reported THRIVE Score: 0 AUDIT C Alcohol Use Questionnaire (AUDIT-C) 1. How often do you have a drink containing alcohol?: Never Total Score: 0 MARSHALL-7 AMB Questionnaire MARSHALL-7 Date MARSHALL - 7 assessed: 06/10/24 Feeling nervous, anxious, or on edge: 0 = Not at all Not being able to stop or control worryin = Not at all Worrying too much about different things: 0 = Not at all Trouble relaxin = Not at all Being so restless that it is hard to sit still: 0 = Not at all Becoming easily annoyed or irritable: 1 = Several days Feeling afraid as if something awful might happen: 0 = Not at all Total MARSHALL-7 score (0-4 normal; 5-9 mild; 10-14 moderate; 15-21 severe): 1 Source: Developed by Drs. Jay Dahl, Jose Haywood and colleagues, with an educational faustino from [employer] Review of Systems Const All systems reviewed & are unremarkable except as noted in HPI and below Physical exam (Primary Care) Vital Signs: Last Vital Signs Temp 98.2 F 08/31/25 11:23 Pulse 73 08/31/25 11:23 Resp 15 08/31/25 11:23 BP 118/88 08/31/25 11:23 Pulse Ox 95 08/31/25 11:23 Oxygen Delivery Method Room Air 08/31/25 11:23 BMI result Body Mass Index 33.3 BMI Assessment/Plan discussion: High BMI High, discussed plan: lifestyle, weight reduction, dietary and physical activity Tobacco/Smoking Status: Tobacco use Status Tobacco use date assessed 08/31/25 08/31/25 11:29 Patient Tobacco Use Status Never used Tobacco 08/31/25 11:29 e-Cigarette/Vaping Use Never Used 08/31/25 11:29 PHQ-9: PHQ-9 Score PHQ-9: Total score 3 08/31/25 11:34 Depression Screening Interpretation: Negative Thrive Assessment: Date of Thrive Assessment Date Thrive assessed 07/20/25 08/31/25 11:29 Currently or been in a relationship where the following occur: No concerns reported Const General: comfortable, alert and well groomed Nutritional Appearance: obese Orientation/consciousness: patient oriented x3 HENMT Head: Yes normocephalic Ears: external ears normal, TM's normal bilaterally and EAC's normal General nose exam: Normal external nose present Face and sinus: Yes face symmetric Mouth: Normal oral and palatal mucosa present and moist mucous membranes Eyes General: appearance normal, both eyes and all related structures Neck Neck: Yes full ROM and Yes no lymphadenopathy Thyroid: Thyroid normal Resp Effort & Inspection: normal respiratory effort and able to speak in complete sentences Auscultation: clear to auscultation bilaterally Cardio Rate: regular rate Rhythm: regular rhythm Heart sounds: S1 normal heart sound present and S2 normal heart sound present GI Inspection: Yes obesity Palpation (GI): Soft to palpation, nontender, no guarding and no masses Auscultation: normal bowel sounds Back/Spine/Pelvis Back: No back tenderness Skin General skin exam: no rashes or lesions noted Neuro General: patient oriented x3, gait normal, tone normal, moves all extremities, Normal light touch and pain sensation, no focal motor deficits and CN's II-XI intact bilaterally Cognition (Neuro): normal cognition Gait exam (Neuro): Normal gait present Extrem General: Yes full ROM, Yes no joint enlargement, Yes no clubbing, cyanosis or edema and Yes normal gait Psych Appearance: grossly normal and well kempt Mental Status: mental status grossly normal Speech and movement: Normal speech and movement present Affect: normal affect Attitude: cooperative Coding Level of Care Code Est Pt Level 4 (55627) Diagnoses Class 2 obesity without serious comorbidity with body mass index (BMI) of 35.0 to 35.9 in adult, unspecified obesity type E66.9; Z68.35 Obesity type: unspecified obesity type Obesity classification: adult class 2 (BMI 35 - 39.9) Serious obesity comorbidity presence: without serious comorbidity Body mass index: BMI 35.0-35.9 Recurrent candidiasis of vagina B37.31 Assessment & Plan Assessment & Plan (1) Obesity: Code(s): E66.9 - Obesity, unspecified Category: Medical Qualifiers: Obesity type: unspecified obesity type Obesity classification: adult class 2 (BMI 35 - 39.9) Serious obesity comorbidity presence: without serious comorbidity Body mass index: BMI 35.0-35.9 Qualified Code(s): E66.9 - Obesity, unspecified; Z68.35 - Body mass index [BMI] 35.0-35.9, adult (2) Recurrent candidiasis of vagina: Code(s): B37.31 - Acute candidiasis of vulva and vagina Plan During the visit, we discussed the patient's current weight management plan, including the use of Zepbound and the potential increase in dosage to 7.5 mg once a week. We reviewed her insurance coverage and coupon usage for the medication. The patient was advised to continue her current regimen for constipation and to monitor her symptoms. We also discussed her history of endometriosis and the previous hysterectomy. For her recurrent yeast infections, I recommended fluconazole and advised her to complete her blood work on a Friday due to fasting requirements. Follow-up is planned in three months to reassess her weight management and overall health. Patient was informed and verbally consented to the use of an ambient scribe for clinic note documentation during this visit. Medications: New fluconazole may repeat second dose 72 hrs after first dose if symptoms persist 150 mg PO Q3D PRN 2 tabs 0RF vaginitis 2 doses Changed From Zepbound (tirzepatide (weight loss)) 5 mg (0.5 mL) subcut QWEEK 2 mL 1RF NS E66.9 - Obesity, unspecified, E78.5 - Hyperlipidemia, unspecified, R73.01 - Impaired fasting glucose, Z68.35 - Body mass index [BMI] 35.0-35.9, adult To tirzepatide (weight loss) 7.5 mg (0.5 mL) subcut QWEEK 2 mL 3RF E66.9 - Obesity, unspecified, E78.5 - Hyperlipidemia, unspecified, R73.01 - Impaired fasting glucose, Z68.35 - Body mass index [BMI] 35.0-35.9, adult
--- OUTSIDE RECORDS SUMMARY | 2025-08-31 12:12 | XMS_ITS | Patient Health Record ---
Author Organization [facility] Address [address] [place] [address] Care Team Providers Care Quartz Mounter Name Role Phone KAMALA PONCE Primary Care Provider Unaute MARCUSHAM NAKUL Unavailable [phone] Allergies Allergen (clinical drug ingredient) Drug/Non Drug [...] Status W/U Status Risk Notes Problem Obesity (027353288) Obesity (BMI 30-39.9) (E66.9) Active confirmed Problem Obese class II (2048183300762 05) BMI 35.0-35.9,adul t (Z68.35) Active confirmed Problem History of bariatric surgery (117209528) History of bariatric surgery (Z98.84) Active confirmed Vital Signs Heart Rate 100 /min 05/30/2025 Oximetry 98 % 05/30/2025 Blood pressure diastolic 78 mm Hg 05/30/2025 Height 61 in 05/30/2025 Blood pressure systolic 114 mm Hg 05/30/2025 Weight 190.3 lbs 05/30/2025 BMI 35.95 kg/m2 05/30/2025 Encounters Encounter Location Date Provider Diagnosis [facility] [address] [place] [address] 07/04/2025 NAKUL SERRA Obesity (BMI 30-39.9 ) E66.9 ; BMI 35.0-35.9,adult Z68.35 ; History of bariatric surgery Z98.84 ; Nutritional counseling Z71.3 and Encounter for examination of blood pressure without abnormal findings Z01.30 [facility] [address] [facility] [address] [place] [address] 05/30/2025 NAKUL SERRA Obesity (BMI 30-39.9 ) E66.9 ; BMI 35.0-35.9,adult Z68.35 ; History of bariatric surgery Z98.84 ; Nutritional counseling Z71.3 and Encounter for examination of blood pressure without abnormal findings Z01.30 [facility] [address] [facility] [address] [place] [address] 05/30/2025 NAKUL YOUNG [facility] [address] [facility] [address] [place] [address] 07/05/2025 NAKUL MARCUSHAM Assessments Encounter Date Diagnosis [...] reviewed. Dictation completed with the use of [employer] voice recognition software, prone to medical misidentifications [...] questions/concerns arise. Case discussed with collaborating physician Sbeastian Garcia who has reviewed the assessment/plan. Chart, [...] reviewed. Dictation completed with the use of [employer] voice recognition software, prone to medical misidentifications [...] reviewed. Dictation completed with the use of [employer] voice recognition software, prone to medical misidentifications [...] reviewed. Dictation completed with the use of [employer] voice recognition software, prone to medical misidentifications [...] reviewed. Dictation completed with the use of [employer] voice recognition software, prone to medical misidentifications [...] reviewed. Dictation completed with the use of [employer] voice recognition software, prone to medical misidentifications [...] reviewed. Dictation completed with the use of [employer] voice recognition software, prone to medical misidentifications [...] reviewed. Dictation completed with the use of [employer] voice recognition software, prone to medical misidentifications [...] Insured Coverage Start Date Coverage End Date [facility] [address] [place] [address] [id number] Rebeca Francois Self - patient is the insured Medications Administered Medication Instructions Date of Administration Dosage Notes MICC B12 INJECTION 05/30/2025 1 mL Medical (General) History Surgical History Surgery Date(Month/Year) Complete hysterectomy 12/04/2024 VSG 2016 Tummy tuck 2017 Breast lift 2019 cholecystectomy 2003 Hospitalization History Reason Date(Month/Year) Ectopic pregnancies
== END 2025-08-31 11:41 | disposition home or self-care (01) ==
LOC: HO.HMCC 10:37
PROVIDERS: PCP Internal Medicine; Visit Provider Internal Medicine
DX: E66.9 Obesity, unspecified (principal); Z68.35 Body mass index [BMI] 35.0-35.9, adult; B37.31 Acute candidiasis of vulva and vagina

== ENCOUNTER 2025-09-20 08:36 | Outpatient (REF) | payer BC, SELFPAY ==
--- OUTSIDE RECORDS SUMMARY | 2025-07-04 11:15 | XMS_ITS ---
Author Organization [facility] [address] Address [address] [place] [address] Care Team Providers Care Professor/Nurse Anesthetist Name Role Phone KAMALA PONCE Primary Care Provider NAKUL Albright Unavailable [phone] Medications Medication SIG (Take, Route, Frequency, Duration) [...] Location Date Provider Diagnosis [facility] [address] [place] [id number] 07/04/2025 NAKUL SERRA Obesity (BMI 30-39.9 ) [...] reviewed. Dictation completed with the use of Grabbedon voice recognition software, prone to medical misidentification [...] reviewed. Dictation completed with the use of ididwork voice recognition software, prone to medical misidentification [...] reviewed. Dictation completed with the use of ididwork voice recognition software, prone to medical misidentification [...] Notes * Rebeca FRANCOISDOB:1975 (50 yo F)Acc No.[id number]:07/04/2025 Patient: Rebeca COLINDRES Provider: Feliz SERRA PA-C :1975 A ge:50 Y S ex:Female Date:07/04/2025 Address:[address] [place], [place] [id number] Pcp:KAMALA PONCE Subjective: * Chief Complaints: * * HPI: C onstitutional: Rebeca is a 49-year-old female with history depression, bariatric surgery that presents for weight management follow up. Currently taking Zepbound 2.5 mg SC weekly with compliance. Reports adequate appetite suppression. Denies the presence of side effects including nausea, vomiting, constipation, or abdominal pain. 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 Starts the day coffee. Breakfast is typically [...] 30-39.9) - E66.9 (Primary) 2 . B AK 35.0-35.9,adult - Z68.35 3 . H istory [...] reviewed. Dictation completed with the use of ididwork voice recognition software, prone to medical misidentifications [...] Information: * Visit Code: * Procedure Codes: 15330 NO SHOW OFFICE VISIT. * Electronic signature of KEO SERRA PA-C on 09/20/2025 at 08:54 AM EDT Sign off status: Pending * Provider: Feliz SERRA PA-C Date: 0 07/04/2025 Generated for Gabriella nance/Gordo/Sharitting on: 1 08:54 AM EDT History and Physical Notes * Physical [...]
--- OUTSIDE RECORDS SUMMARY | 2025-09-20 08:54 | XMS_ITS | Patient Health Record ---
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 Role Phone KAMALA PONCE Primary Care Provider Unaute MARCUSHAM NAKUL Unavailable [phone] Allergies Allergen (clinical drug ingredient) Drug/Non Drug [...] Status W/U Status Risk Notes Problem Obesity (389568218) Obesity (BMI 30-39.9) (E66.9) Active confirmed Problem Obese class II (8798196693723 05) BMI 35.0-35.9,adul t (Z68.35) Active confirmed Problem History of bariatric surgery (315493066) History of bariatric surgery (Z98.84) Active confirmed Vital Signs Heart Rate 100 /min 05/30/2025 Oximetry 98 % 05/30/2025 Blood pressure diastolic 78 mm Hg 05/30/2025 Height 61 in 05/30/2025 Blood pressure systolic 114 mm Hg 05/30/2025 Weight 190.3 lbs 05/30/2025 BMI 35.95 kg/m2 05/30/2025 Encounters Encounter Location Date Provider Diagnosis [facility] [address] [place] [address] 07/04/2025 NAKUL SERRA Obesity (BMI 30-39.9 ) E66.9 ; BMI 35.0-35.9,adult Z68.35 ; History of bariatric surgery Z98.84 ; Nutritional counseling Z71.3 and Encounter for examination of blood pressure without abnormal findings Z01.30 [facility] [address] [facility] [address] [place] [address] 05/30/2025 NAKUL SERAR Obesity (BMI 30-39.9 ) E66.9 ; BMI 35.0-35.9,adult Z68.35 ; History of bariatric surgery Z98.84 ; Nutritional counseling Z71.3 and Encounter for examination of blood pressure without abnormal findings Z01.30 [facility] [address] [facility] [address] [place] [address] 05/30/2025 NAKUL CANDLER [facility] [address] [facility] [address] [place] [address] 07/05/2025 NAKUL MARCUSHAM Assessments Encounter Date Diagnosis [...] reviewed. Dictation completed with the use of [employer] voice recognition software, prone to medical misidentifications [...] reviewed. Dictation completed with the use of [employer] voice recognition software, prone to medical misidentifications [...] reviewed. Dictation completed with the use of [employer] voice recognition software, prone to medical misidentifications [...] reviewed. Dictation completed with the use of [employer] voice recognition software, prone to medical misidentifications [...] reviewed. Dictation completed with the use of [employer] voice recognition software, prone to medical misidentifications [...] reviewed. Dictation completed with the use of [employer] voice recognition software, prone to medical misidentifications [...] reviewed. Dictation completed with the use of [employer] voice recognition software, prone to medical misidentifications [...] reviewed. Dictation completed with the use of [employer] voice recognition software, prone to medical misidentifications [...] Insured Coverage Start Date Coverage End Date [facility] [address] [place] [address] [id number] Rebeca Francois Self - patient is the insured Medications Administered Medication Instructions Date of Administration Dosage Notes MICC B12 INJECTION 05/30/2025 1 mL Medical (General) History Surgical History Surgery Date(Month/Year) Complete hysterectomy 12/04/2024 VSG 2016 Tummy tuck 2017 Breast lift 2019 cholecystectomy 2003 Hospitalization History Reason Date(Month/Year) Ectopic pregnancies
[2025-09-20 10:55] LABS: Hematocrit 43.5 % (37.0-47.0); Hemoglobin 14.6 g/dl (12.0-16.0)
[2025-09-20 12:05] LABS: Alanine Aminotransferase 12 U/L (0-31); Anion Gap 11 (12-20); Aspartate Amino Transferase 22 U/L (5-31); Blood Urea Nitrogen 11 mg/dL (9-16); Calcium 9.3 mg/dL (8.4-10.2); Carbon Dioxide 25 mmol/L (22-29); Chloride 109 mmol/L (96-108); Cholesterol 205 mg/dL (<200); Estimated Glomerular Filt Rate > 60; HDL Cholesterol 52 mg/dL (>40); Potassium 4.1 mmol/L (3.3-5.1); Sodium 141 mmol/L (135-145); Triglycerides 85 mg/dL (<150)
== END 2025-09-20 08:37 | disposition home or self-care (01) ==
LOC: HO.HMGCLDS 08:36
PROVIDERS: PCP Internal Medicine; Visit Provider Internal Medicine
DX: Z00.01 Encounter for general adult medical examination with abnormal findings (principal); R00.2 Palpitations; N93.9 Abnormal uterine and vaginal bleeding, unspecified; L29.89 Other pruritus; E78.5 Hyperlipidemia, unspecified; R73.01 Impaired fasting glucose; E66.812 Obesity, class 2; B00.9 Herpesviral infection, unspecified; N76.0 Acute vaginitis; Z68.35 Body mass index [BMI] 35.0-35.9, adult; Z13.220 Encounter for screening for lipoid disorders; Z13.1 Encounter for screening for diabetes mellitus; Z28.21 Immunization not carried out because of patient refusal; Z79.899 Other long term (current) drug therapy
CPT/HCPCS: 36415; 80048; 80061; 82306; 84450; 84460; 85014; 85018; 96127

== ENCOUNTER 2025-09-20 13:18 | Outpatient (AMB) | payer BC, SELFPAY ==
[2025-09-20 13:24] VITALS: BP 100/80; PULSE 81; RESP 16; TEMP 36.7; O2SAT 95; BMI 32.4
--- NOTE | 2025-09-20 13:24 | A.OFFPC_ITS ---
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 Allergies morphine (MORPHINE) Allergy (Mild, Verified 09/20/25 13:59) RASH, hives metronidazole (Flagyl) Allergy (Unknown, Verified 09/20/25 13:59) shaking,dizziness, vision changes Medication List - Last Reconciled 09/20/25 by Yvette Kellogg MD tirzepatide (weight loss) 7.5 mg (0.5 mL) subcut QWEEK valacyclovir 500 mg PO Q12H PRN 3 days Tobacco use date assessed: 09/20/25 Dental Screening Dental Screen Date: 09/20/25 Did you have a dental visit in the last 12 months?: No Did you have a dental problem in the last 6 months where you did not have access to dental care?: No Was dental information given to patient?: Patient has dentist HPI 2m follow up HPI Details 50-year-old lady here today for follow-u p on her obesity currently on tirzepatide 7.5 mg once a week, and has been steadily losing weight on it. Tolerating medication well has been compliant with healthy eating habits and exercises regularly. Complaining of recurrent herpes flare ups and genital areas and recurrent cold sores. Was taking Valtrex as needed but once she has stopped taking the medication, lesions with come back. She has also been having vaginal itching and a thin whitish -alegre discharge with no smell, present now for the last 3 days. [facility] Medical History (Updated 09/20/25 @ 13:56 by Yvette Kellogg MD) Recurrent HSV (herpes simplex virus) Impaired fasting glucose Dyslipidemia IBS (irritable bowel syndrome) Abnormal Pap smear of cervix Miscarriage of left tubal ectopic History of ovarian cyst Pelvic pain Immunization refused Obesity Intermittent palpitations Perianal abscess Abnormal MRI, pelvis Renal calculi Endometriosis Abnormal pelvic ultrasound Ectopic Genital herpes Surgical History S/P LUCAS-BSO (total abdominal hysterectomy and bilateral salpingo-oophorectomy) History of left oophorectomy Hx of colonoscopy H/O abdominoplasty History of endometrial ablation History of loop electrical excision procedure (LEEP) H/O breast augmentation H/O gastric sleeve Hx of dilation and curettage Hx of cholecystectomy Family History Maternal Grandmother History of breast cancer Father Substance use disorder Mental health disorder Mother Substance use disorder Mental health disorder Paternal Uncle Substance use disorder Mental health disorder Maternal Uncle Substance use disorder Mental health disorder Maternal Uncle Substance use disorder Mental health disorder Maternal Uncle Substance use disorder Mental health disorder Social History Housing: House Alcohol intake: never Patient Tobacco Use Status: Never used Tobacco e-Cigarette/Vaping Use: Never Used Second Hand Smoke Exposure: Yes service: No Current occupational status: employed Sexual orientation: Straight/Heterosexual Gender identity: Female Cognitive needs: No Hearing needs: No Vision needs: Yes Female Reproductive History Menstrual Age of Menarche: 12 Questionnaire Thrive Questionnaire Date Thrive assessed: 07/20/25 I am a: Patient What is your living situation today?: I have a steady place to live Within the past 12 months, did the food you bought not last and you didn't have the money to get more?: Never true Within the past 12 months, did you worry whether your food would run out before you got money to buy more?: Never true Do you have trouble paying for medicines?: No Do you have trouble getting transportation to medical appointments?: No Do you have trouble paying your heating and electricity bill?: No Do you have trouble taking care of your child, family member or friend?: No Do you have trouble with day-to-day activities such as bathing, preparing meals, shopping, managing finances, etc.?: No Are you currently unemployed and looking for a job?: No Are you interested in more education?: No Please select the resources that you would like help with: None Currently or been in a relationship where the following occur: No concerns reported THRIVE Score: 0 MARSHALL-7 AMB Questionnaire MARSHALL-7 Date MARSHALL - 7 assessed: 09/20/25 Feeling nervous, anxious, or on edge: 0 = Not at all Not being able to stop or control worryin = Not at all Worrying too much about different things: 0 = Not at all Trouble relaxin = Not at all Being so restless that it is hard to sit still: 0 = Not at all Becoming easily annoyed or irritable: 0 = Not at all Feeling afraid as if something awful might happen: 0 = Not at all Total MARSHALL-7 score (0-4 normal; 5-9 mild; 10-14 moderate; 15-21 severe): 0 Source: Developed by Drs. Jay Dahl, Vaishali Oneal, Jose Dunham and colleagues, with an educational faustino from [employer]. Review of Systems Const All systems reviewed & are unremarkable except as noted in HPI and below Physical exam (Primary Care) Vital Signs: Last Vital Signs Temp 98.0 F 09/20/25 13:24 Pulse 81 09/20/25 13:24 Resp 16 09/20/25 13:24 BP 100/80 09/20/25 13:24 Pulse Ox 95 09/20/25 13:24 Oxygen Delivery Method Room Air 09/20/25 13:24 BMI result Body Mass Index 32.4 Tobacco/Smoking Status: Tobacco use Status Tobacco use date assessed 09/20/25 09/20/25 13:26 Patient Tobacco Use Status Never used Tobacco 09/20/25 13:26 e-Cigarette/Vaping Use Never Used 09/20/25 13:26 Thrive Assessment: Date of Thrive Assessment Date Thrive assessed 07/20/25 09/20/25 13:26 Currently or been in a relationship where the following occur: No concerns reported Const General: alert and well groomed Nutritional Appearance: obese Orientation/consciousness: patient oriented x3 HENMT Head: Yes normocephalic Ears: external ears normal General nose exam: Normal external nose present Face and sinus: Yes face symmetric Mouth: moist mucous membranes Eyes General: appearance normal, both eyes and all related structures Neck Neck: Yes full ROM and Yes no lymphadenopathy Thyroid: Thyroid normal Resp Effort & Inspection: normal respiratory effort and able to speak in complete sentences Auscultation: clear to auscultation bilaterally Cardio Rate: regular rate Rhythm: regular rhythm Heart sounds: S1 normal heart sound present and S2 normal heart sound present GI Inspection: Yes obesity Palpation (GI): Soft to palpation, nontender, no guarding and no masses Auscultation: normal bowel sounds Back/Spine/Pelvis Back: No back tenderness Skin General skin exam: no rashes or lesions noted Neuro General: patient oriented x3, gait normal, tone normal, moves all extremities, Normal light touch and pain sensation, no focal motor deficits and CN's II-XI intact bilaterally Cognition (Neuro): normal cognition Gait exam (Neuro): Normal gait present Extrem General: Yes full ROM, Yes no joint enlargement, Yes no clubbing, cyanosis or edema and Yes normal gait Psych Appearance: grossly normal and well kempt Mental Status: mental status grossly normal Speech and movement: Normal speech and movement present Affect: normal affect Attitude: cooperative Results Reviewed Results Reviewed: Name: Rebeca Francois Age/Sex: 50/F : 1975 Unit#: [id number] Attend Dr: Yvette Kellogg MD Re09/20/25 Status: REG REF Location: [facility] Disch: SPEC : [id number] JAE: 09/20/25 STATUS: COMP REQ : [id number] RECD: 09/20/[address]: Yvette Kellogg MD COMP: 09/20/25 ENTERED: 09/20/[address] [facility] [address]: ORDERED: Met Prof Fast, AST, ALT, Lipid Panel, Vitamin D 25-OH Test Result Flag Reference Sodium 141 135-145 mmol/L Potassium 4.1 3.3-5.1 mmol/L CL 109 H 96-108 mmol/L CO2 25 22-29 mmol/L Gap 11 L 12-20 BUN 11 9-16 mg/dL Creat 0.80 0.5-1.4 mg/dL eGFR > 60 Chronic Kidney Disease: Estimated GFR < 60 mL/min/1.73m2 Severe Kidney Disease: Estimated GFR < 15 mL/min/1.73m2 FBS 94 60-99 mg/dL CA 9.3 8.4-10.2 mg/dL AST (GOT) 22 5-31 U/L ALT (GPT) 12 0-31 U/L Triglyceride 85 <150 mg/dL Desirable Triglyceride: less than 150 mg/dL Borderline High Triglyceride 150-199 mg/dL High Triglyceride: 200-499 mg/dL Very High Triglyceride: greater than or equal to 5OO mg/dL Cholesterol 205 H <200 mg/dL Desirable Cholesterol: less than 200 mg/dL Borderline High Cholesterol: 200-239 mg/dL High Cholesterol: greater than 239 mg/dL LDL Calculated 136 H <100 mg/dL Desirable LDL: less than 100 mg/dL Near Optimal/Above Optimal LDL: 110-129 mg/dL Borderline High LDL: 130-159 mg/dL High LDL: 160-189 mg/dL Very High LDL: greater than or equal to 190 mg/dL HDL 52 >40 mg/dL Desirable HDL: greater than 40 mg/dL Note: This HDL assay may give artificially low results in patients with liver disease. Vitamin D 25-OH 41.0 >30 ng/mL Health Based Reference Values* < 20 ng/mL Deficient 20-30 ng/mL Insufficient > 30 ng/mL Sufficient Laboratory Tests 09/20/25 08:41 Hgb 14.6 Hct 43.5 Coding Level of Care Code Est Pt Level 4 (33349) Complex EM visit Add On G2211 Diagnoses Dyslipidemia E78.5 Impaired fasting glucose R73.01 Class 2 obesity without serious comorbidity with body mass index (BMI) of 35.0 to 35.9 in adult, unspecified obesity type E66.9; Z68.35 Obesity type: unspecified obesity type Obesity classification: adult class 2 (BMI 35 - 39.9) Serious obesity comorbidity presence: without serious comorbidity Body mass index: BMI 35.0-35.9 Recurrent HSV (herpes simplex virus) B00.9 Vaginitis N76.0 Assessment & Plan Assessment & Plan (1) Dyslipidemia: Code(s): E78.5 - Hyperlipidemia, unspecified Category: Medical Plan: Fasting labs done recently showed improvement in triglyceride levels however LDL cholesterol still unchanged, continue with recommended healthy eating habits and regular exercise at least 30 minutes of moderate intensity exercise daily (2) Impaired fasting glucose: Code(s): R73.01 - Impaired fasting glucose Category: Medical Plan: Your previous fasting blood sugars were elevated above 100 mg/dL. Latest fasting labs showed normal fasting glucose levels. Impaired glucose metabolism increases the risk for developing diabetes mellitus type 2, as well as heart attack and stroke later on. Lifestyle changes that promotes weight loss, healthy eating habits, and regular exercise are important, and can prevent the progression to diabetes (3) Obesity: Code(s): E66.9 - Obesity, unspecified Category: Medical Qualifiers: Obesity type: unspecified obesity type Obesity classification: adult class 2 (BMI 35 - 39.9) Serious obesity comorbidity presence: without serious comorbidity Body mass index: BMI 35.0-35.9 Qualified Code(s): E66.9 - Obesity, unspecified; Z68.35 - Body mass index [BMI] 35.0-35.9, adult Plan: Currently on tirzepatide 7.5 mg once a week, tolerating medication, reinforced importance of adhering to healthy eating habits and regular getting regular e xercise check with her insurance if coverage is still to be continued for next year (4) Recurrent HSV (herpes simplex virus): Code(s): B00.9 - Herpesviral infection, unspecified Category: Medical Plan: Prescription now sent for valacyclovir 500 mg per tablet to take once a day for the next year (5) Vaginitis: Code(s): N76.0 - Acute vaginitis Plan: Empirically prescribed metronidazole 500 mg to take 1 twice a day for 5 days do not do show avoid any perfumes soaps when washing genital areas Medications: New metronidazole 500 mg PO BID 10 tabs 0RF valacyclovir 500 mg PO DAILY 90 tabs 3RF Discontinued valacyclovir Discontinued Reason: Doctor's Order 500 mg PO Q12H 3 days PRN 6 tabs 5RF Genital herpes recurrent
--- OUTSIDE RECORDS SUMMARY | 2025-09-20 17:23 | XMS_ITS | Data Portability ---
Author Organization [facility] [employer], [address] Address [address] [place] [address] Assessment No assessment recorded. Plan of Treatment Reminders Order Date Submit Date Provider Last Modified By Organization Details Last Modified Time Details Appointments None recorded. Lab None recorded. Referral emergency medicine referral 2023 024 [email or web address] Not available 20:15:10 Procedures None recorded. Surgeries None recorded. Imaging None recorded. Medication Orders None recorded. Patient TargetsNo targets recorded. Patient Instructions Encounter Date Encounter Id Patient Instructions Last Modified By Organization Details Last Modified Time 08/20/2024 [id number] dizziness: care instructions [email or web address] Not available 08/20/2024 19:50:08 palpitations: ca re instructions [email or web address] Not available 08/20/2024 19:50:08 Based on your [...] cleared by them to eat or drink. [email or web address] Not available 09/04/2024 07:42:40 Reason for Referral Emergency Medicine Referral for Electrocardiogram abnormal Referring Physician: Barbara Nogueira, Urgent Care, Encounter Date: 08/20/2024 Results Created Date Observation Date Name Description Value Unit Range Abnormal Flag Note LastModifiedBy Organization Detail LastModifiedTime 08/20/20 24 rhyth m EKG, 1-3 leads No observ ation record ed. [email or web address] Not Available 08/20 19:43:48 Result Notes None [...] Name and Address Organization Details Recorded Time [id number] morphine medicatio n Not available Not available Not available 08/20/2024 7052 RxNorm Cielo Boonuris vo PA - [facility] 19:14:19 Medications [...] saturation in Arterial blood by Pulse oximetry Pain severity - 0-10 verbal numeric rating [Score] - Reported Heart rate Respiratory rate Body temperature Systolic And Diastolic Provider Name and Address Organization Details Last Updated DateTime 4 157.48 cm 42755.3 7 g 34.4 kg/m2 100 % 100 % 10 91 /min 21 /min 98.5 [degF] 119/78 mm[Hg] Cielo Perez PA - [facility] 4 19:11:45 Social History Question Answer Notes LastModified by Organizat ion Details LastModified Time Tobacco Smoking Status Never Smoker Cielo Perez tavo PA - [facility] 08/20/2024 19:15:41 Have You Had A Flu Shot This Season? No Information not available 08/20/2024 If No, Would You Like A Flu Shot Today? No [email or web address] Information not available 08/20/2024 What Is Your Relationship Status? [email or web address] Information not available 08/20/2024 Have You Recently Traveled Abroad? No Information not available 08/20/2024 Sex: Unknown Functional Status Question Answer Note LastModified by Organizat ion Details LastModified Time Do you use any illicit or recreational drugs? No Information not available 08/20/2024 Do you or have you ever used any other forms of tobacco or nicotine? No [email or web address] Information not available 08/20/2024 Are you currently employed? Yes [email or web address] Information not available 08/20/2024 Mental Status None recorded. Family History Nothing Reported. Medical History No medical history recorded. Gynecological HistoryNo gynecological history recorded. Obstetrics History GPAL:G 0 P 0 0 0 0 Past Encounters Encounter ID Performer Location Encounter Start Date Encounter Closed Date Diagnosis/Indication Diagnosis SNOMED-CT Code Diagnosis ICD10 Code Diagnosis IMO Codes Diagnosis Note [id number] [address] [place] [address] 09/22/2021 09:08:16 09/22/2021 10:50:27 [id number] [place] [address] [address] 07/11/2023 14:53:30 07/11/2023 15:16:58 History and physical examination, occupation 075589249 Z02.1 [id number] BARBARA NOGUEIRA [place] [address] [address] 08/20/2024 18:57:21 08/20/2024 20:15:10 Chest pain 14649295 R07.9 Pounding heart 484053825 R00.2 Electrocar diogram abnormal 614189441 R94.31 Health Concerns Section Related Observation LastModified by Organization Detai ls LastModified Time None Recorded Concern Status LastModified by Organization Details LastModified Time None Recorded Advance Directives Directive None Recorded Payers Insurance Date Sequence Insurance Name Policy Number Policy Hughes Covered Member ID Hughes Member ID Guarantor Name 08/20/2024 OC-ESCREEN Rebeca Francois POAH POAH Rebeca Francois 09/07/2024 1 [facility] (HMO) [id number] Rebeca Francois [id number] Rebeca Francois 09/07/2024 2 [facility] (MEDICAID HMO) PARRIS Rogers [id number] Rebeca Francois Notes Date Note Type Note [...] or toxic exposure. BARBARA NOGUEIRA MD [address] [place], [address], [place] - [facility] 09/04/2024 07:43:31 OBGyn Episode No OBEpisode recorded.
== END 2025-09-20 14:02 | disposition home or self-care (01) ==
LOC: HO.HMCC 13:19
PROVIDERS: PCP Internal Medicine; Visit Provider Internal Medicine
DX: E78.5 Hyperlipidemia, unspecified (principal); R73.01 Impaired fasting glucose; E66.9 Obesity, unspecified; Z68.35 Body mass index [BMI] 35.0-35.9, adult; B00.9 Herpesviral infection, unspecified; N76.0 Acute vaginitis

== ENCOUNTER 2025-10-03 13:27 | Outpatient (AMB) | payer BC, SELFPAY ==
[2025-10-03 13:31] VITALS: BMI 32.4
--- NOTE | 2025-10-03 13:31 | MHC.OFFVIS ---
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 ([place] BARCENAS) Accompanied by: Self / Same As Patient Allergies morphine (MORPHINE) Allergy (Mild, Verified 10/03/25 13:34) RASH, hives metronidazole (Flagyl) Allergy (Unknown, Verified 10/03/25 13:34) shaking,dizziness, vision changes HPI Comments Details: Presenting complaining of perineal vulvovaginal irritation no vaginal discharge or foul odor [facility] Medical History Recurrent HSV (herpes simplex virus) Impaired fasting glucose Dyslipidemia IBS (irritable bowel syndrome) Abnormal Pap smear of cervix Miscarriage of left tubal ectopic History of ovarian cyst Pelvic pain Immunization refused Obesity Intermittent palpitations Perianal abscess Abnormal MRI, pelvis Renal calculi Endometriosis Abnormal pelvic ultrasound Ectopic Genital herpes Surgical History S/P LUCAS-BSO (total abdominal hysterectomy and bilateral salpingo-oophorectomy) History of left oophorectomy Hx of colonoscopy H/O abdominoplasty History of endometrial ablation History of loop electrical excision procedure (LEEP) H/O breast augmentation H/O gastric sleeve Hx of dilation and curettage Hx of cholecystectomy Family History Maternal Grandmother History of breast cancer Father Substance use disorder Mental health disorder Mother Substance use disorder Mental health disorder Paternal Uncle Substance use disorder Mental health disorder Maternal Uncle Substance use disorder Mental health disorder Maternal Uncle Substance use disorder Mental health disorder Maternal Uncle Substance use disorder Mental health disorder Social History Housing: House Alcohol intake: never Patient Tobacco Use Status: Never used Tobacco e-Cigarette/Vaping Use: Never Used Second Hand Smoke Exposure: Yes service: No Current occupational status: employed Sexual orientation: Straight/Heterosexual Gender identity: Female Cognitive needs: No Hearing needs: No Vision needs: Yes Female Reproductive History Menstrual Age of Menarche: 12 Review of Systems Const All systems reviewed & are unremarkable except as noted in HPI and below Physical Exam Vital Signs: BMI result Body Mass Index 32.4 General: Yes no CVA tenderness External Female Exam: normal external appearance and normal appearance of the urethra Speculum Exam - Vagina: normal appearance of the vagina, normal palpation, no lesions and no masses Speculum Exam - Cervix: normal appearance of the cervix, normal palpation, no lesions, no masses and nontender Bimanual exam- vagina & uterus: normal bimanual exam, normal palpation, uterine size normal, normal palpation, uterine shape normal, No Cervical tenderness present and non-tender Bimanual Exam- Adnexa, other: normal adnexae Back/Spine/Pelvis Back: no CVA tenderness Assessment & Plan Assessment & Plan (1) Vulvovaginitis: Code(s): N76.0 - Acute vaginitis Category: Medical Plan: GC/CT, Bacterial Vaginosis panel taken, Terazol 0.8% q.h.s. for 3 days was sent to the patient's pharmacy. The patient was instructed to call if symptoms don't improve in 48 hours. Medications: New clotrimazole-betamethasone 1-0.05 % 1 appl topical BID 45 grams 0RF 5 days terconazole 0.8% 1 appful vaginal BEDTIME 20 grams 0RF 3 days Coding Level of Care Code Est Pt Level 3 (65708) Diagnoses Vulvovaginitis N76.0
== END 2025-10-03 14:03 | disposition home or self-care (01) ==
LOC: HO.HWS 13:27
PROVIDERS: PCP Internal Medicine; Visit Provider Obstetrics & Gynecology
DX: N76.0 Acute vaginitis (principal)
CPT/HCPCS: 99213

== ENCOUNTER 2025-10-03 13:27 | Outpatient (REF) | payer BC, SELFPAY ==
[2025-10-04 00:30] LABS: Bacterial Vaginosis PCR NEGATIVE (Negative); Candida Group PCR NOT DETECTED (Not Detect); Candida glab krusei PCR NOT DETECTED (Not Detect); Trichomonas vaginalis PCR NOT DETECTED (Not Detect)
[2025-10-04 01:01] LABS: CT PCR NOT DETECTED (Not Detect.); NG PCR NOT DETECTED (Not Detect.)
== END 2025-10-03 13:28 | disposition home or self-care (01) ==
LOC: HO.LNP 13:27
PROVIDERS: PCP Internal Medicine; Visit Provider Obstetrics & Gynecology
DX: N76.0 Acute vaginitis (principal)
CPT/HCPCS: 81515; 87491; 87591

== ENCOUNTER 2025-11-04 11:37 | Outpatient (AMB) | payer BC, SELFPAY ==
[2025-11-04 11:38] VITALS: BP 130/74; BMI 32.4
--- NOTE | 2025-11-04 11:38 | A.OFFVIS_ITS ---
Vital Signs 11/04/25 11:38 Height 5 ft 2 in Weight 177 lb BMI 32.4 BP 130/74 Intake Visit Reasons: vaginal discharge [employer] [place] Law Clerk Required: No Information Interpreted: non-clinical & clinical Slip Cover Seamstress: Slip Cover Seamstress Present ([place] BARCENAS) Accompanied by: Self / Same As Patient Allergies morphine (MORPHINE) Allergy (Mild, Verified 11/04/25 11:43) RASH, hives metronidazole (Flagyl) Allergy (Unknown, Verified 11/04/25 11:43) shaking,dizziness, vision changes Is last menstrual period known: No (hysterectomy) Post menopausal: Yes HPI Comments Details: Presenting complaining of vulvovaginal irritation associated with the hot flashes affecting her sleep, vaginal dryness during intercourse The patient presented ten days ago with vulvovaginal irritation, BV panel was negative for Bee Last mammogram in 08/25 was BI-RADS 3 PFSH Medical History Recurrent HSV (herpes simplex virus) Impaired fasting glucose Dyslipidemia IBS (irritable bowel syndrome) Abnormal Pap smear of cervix Miscarriage of left tubal ectopic History of ovarian cyst Pelvic pain Immunization refused Obesity Intermittent palpitations Perianal abscess Abnormal MRI, pelvis Renal calculi Endometriosis Abnormal pelvic ultrasound Ectopic Genital herpes Surgical History S/P LUCAS-BSO (total abdominal hysterectomy and bilateral salpingo-oophorectomy) History of left oophorectomy Hx of colonoscopy H/O abdominoplasty History of endometrial ablation History of loop electrical excision procedure (LEEP) H/O breast augmentation H/O gastric sleeve Hx of dilation and curettage Hx of cholecystectomy Family History Maternal Grandmother History of breast cancer Father Substance use disorder Mental health disorder Mother Substance use disorder Mental health disorder Paternal Uncle Substance use disorder Mental health disorder Maternal Uncle Substance use disorder Mental health disorder Maternal Uncle Substance use disorder Mental health disorder Maternal Uncle Substance use disorder Mental health disorder Social History Housing: House Alcohol intake: never Patient Tobacco Use Status: Never used Tobacco e-Cigarette/Vaping Use: Never Used Second Hand Smoke Exposure: Yes service: No Current occupational status: employed Sexual orientation: Straight/Heterosexual Gender identity: Female Cognitive needs: No Hearing needs: No Vision needs: Yes Female Reproductive History Menstrual Age of Menarche: 12 Menopause type: surgical Review of Systems Const All systems reviewed & are unremarkable except as noted in HPI and below Card Reports as per HPI and Reports no additional complaints Resp Reports as per HPI and Reports no additional complaints GI Reports as per HPI and Reports no additional complaints Reports as per HPI Physical Exam Vital Signs: Last Vital Signs BP 130/74 11/04/25 11:38 BMI result Body Mass Index 32.4 Const General: cooperative, healthy appearing and comfortable General: Yes bladder normal to palpation External Female Exam: No lesion Speculum Exam - Vagina: normal appearance of the vagina, normal vaginal discharge and not erythematous Speculum Exam - Cervix: Cervix absent Bimanual exam- vagina & uterus: bladder normal to palpation and uterus absent Bimanual Exam- Adnexa, other: Other (No masses detected) Assessment & Plan Assessment & Plan (1) Atrophic vaginitis: Code(s): N95.2 - Postmenopausal atrophic vaginitis Category: Medical Plan: Discussed with the patient the findings on pelvic exam, BV panel collected, since the patient is extremely symptomatic and does not want a wait for the results , will treat with Diflucan 150 mg p.o. x1 although the likelihood of her symptoms caused by Candidal vulvovaginitis is small Discussed with the patient vaginal estrogen cream was BI-RADS 3 mammogram with mild increase in the risk of breast cancer, all pros and cons, risks and benefits of the medication were discussed with the patient, the patient decided to proceed with a short-term course of estradiol vaginal cream, recommended 1 vaginal application daily for the the 1st week then 3 times a week for 3 weeks. Instructions given the patient to call if symptoms not improve (2) Hot flashes: Code(s): R23.2 - Flushing Category: Medical Plan: Discussed with the patient the options of treatment of hot flashes including hormonal replacement therapy, all the pros, cons, risks and benefits (benefits= prevention of hot flashes, atrophic vaginitis, osteoporosis, decrease colon ca risk; also discussed with the patient the risks of [place], Breast ca, DVT, PE, Strokes). In addition, discussed with the patient non hormonal treatment options for hot flashes treatment in surgical menopausal patient. Options discu ssed with the patient include the following: SSRI/SNRIs , difficulty has been demonstrated in multiple trials clinical response is more rapid (days) than typical response to SSRI for depression (weeks), they are equally effective in natural versus surgical menopause, they have similar modest benefit for hot flashes; Citalopram 20 mg per day is 1 of the 1st choice options. Prescription sent to t he patient's pharmacy. Instructions given the patient to start the pill 1 week after Diflucan and to take 1 tablet a day thereafter were 60 days and to schedule a follow-up appointment in 60 days. Instructions given the patient Orders: Orders Bacterial Vaginosis Panel Today N95.2 - Postmenopausal atrophic vaginitis Medications: New fluconazole 150 mg PO ONCE 1 tab 0RF 1 day citalopram Do not start the medication for a week after fluconazole then start 1 tablet daily 20 mg PO DAILY 60 tabs 0RF 60 days estradiol 0.01%(0.1mg/gram) (Estrace) One vaginal application daily the 1st week then 3 times a week for 3 weeks 1 g vaginal DAILY 42.5 grams 0RF 4 weeks Coding Level of Care Code Est Pt Level 3 (96638) Diagnoses Atrophic vaginitis N95.2 Hot flashes R23.2
== END 2025-11-04 13:09 | disposition home or self-care (01) ==
LOC: HO.HWS 11:37
PROVIDERS: PCP Internal Medicine; Visit Provider Obstetrics & Gynecology
DX: N95.2 Postmenopausal atrophic vaginitis (principal); R23.2 Flushing
CPT/HCPCS: 99213

== ENCOUNTER 2025-11-04 11:37 | Outpatient (REF) | payer BC, SELFPAY ==
[2025-11-04 15:32] LABS: Bacterial Vaginosis PCR NEGATIVE (Negative); Candida Group PCR DETECTED (Not Detect); Candida glab krusei PCR NOT DETECTED (Not Detect); Trichomonas vaginalis PCR NOT DETECTED (Not Detect)
== END 2025-11-04 11:38 | disposition home or self-care (01) ==
LOC: HO.LNP 11:37
PROVIDERS: PCP Internal Medicine; Visit Provider Obstetrics & Gynecology
DX: N95.2 Postmenopausal atrophic vaginitis (principal); R23.2 Flushing
CPT/HCPCS: 81515

== ENCOUNTER 2025-11-14 10:47 | Emergency (ER) | payer BC, SELFPAY ==
--- OUTSIDE RECORDS SUMMARY | 2025-07-04 10:15 | XMS_ITS ---
Author Organization [facility] [address] Address [address] [place] [address] Care Team Providers Care Sand Operator Name Role Phone KAMALA PONCE Primary Care Provider NAKUL Albright Unavailable [phone] Medications Medication SIG (Take, Route, Frequency, Duration) Notes Start Date End Date Status Zepbound 2.5 MG/0.5ML Solution Auto-injector Inject 2.5mg Subcutaneous once weekly; Duration: 30 days Active valACYclovir HCl 1 GM Tablet TAKE 2 TABLETS (2000 MG) BY MOUTH ONCE Oral; Duration: 1 Days Not-Taking hydrOXYzine HCl 25 MG Tablet 1 tablet as needed Oral Once a day; Duration: 14 days Not-Taking Clobetasol Propionate 0.05 % Cream External; Duration: 30 Days Not-Taking Encounters Encounter Location Date Provider Diagnosis [facility] [address] [place] [phone] 07/04/2025 NAKUL SERRA Obesity (BMI 30-39.9 ) E66.9 ; BMI 35.0-35.9,adult Z68.35 ; History of bariatric surgery Z98.84 ; Nutritional counseling Z71.3 and Encounter for examination of blood pressure without abnormal findings Z01.30 Assessments Encounter Date Diagnosis (ICD Code) Assessment Notes Treatment Notes Treatment Clinical Notes Section Notes 07/04/2025 Obesity (BMI 30-39.9) (ICD-10 - E66.9) Rebeca is a 50-year-old female with history depression, bariatric surgery that presents for weight management follow up. Reviewd [facility] holistic and medical approach to weight loss with emphasis on lifestyle modification. 05/30/2025: Weight: 190.3, BMI: 35.9. All questions answered to the patient's satisfaction. Patient demonstrates understanding of diagnosis and treatments discussed. Follow-up at next scheduled appointment, sooner should any questions/concern s arise. Case discussed with collaborating physician Sebastian Garcia who has reviewed the assessment/plan. Chart, medications, labs, and vital signs reviewed. Dictation completed with the use of [employer] voice recognition software, prone to medical misidentification s and grammatical errors. All errors are unintentional. Although the practitioner does try to identify and correct errors, some may be present. Please do not hesitate to contact the practitioner for clarification. Total time was 30 minutes spent with greater than 50% on coordination of care and patient education. 07/04/2025 BMI 35.0-35.9,adult (ICD-10 - Z68.35) Rebeca is a 50-year-old female with history depression, bariatric surgery that presents for weight management follow up. Reviewd [facility] holistic and medical approach to weight loss with emphasis on lifestyle modification. 05/30/2025: Weight: 190.3, BMI: 35.9. All questions answered to the patient's satisfaction. Patient demonstrates understanding of diagnosis and treatments discussed. Follow-up at next scheduled appointment, sooner should any questions/concern s arise. Case discussed with collaborating physician Sebastian Garcia who has reviewed the assessment/plan. Chart, medications, labs, and vital signs reviewed. Dictation completed with the use of [employer] voice recognition software, prone to medical misidentification s and grammatical errors. All errors are unintentional. Although the practitioner does try to identify and correct errors, some may be present. Please do not hesitate to contact the practitioner for clarification. Total time was 30 minutes spent with greater than 50% on coordination of care and patient education. 07/04/2025 History of bariatric surgery (ICD-10 - Z98.84) Rebeca is a 50-year-old female with history depression, bariatric surgery that presents for weight management follow up. Reviewd [facility] holistic and medical approach to weight loss with emphasis on lifestyle modification. 05/30/2025: Weight: 190.3, BMI: 35.9. All questions answered to the patient's satisfaction. Patient demonstrates understanding of diagnosis and treatments discussed. Follow-up at next scheduled appointment, sooner should any questions/concern s arise. Case discussed with collaborating physician Sebastian Garcia who has reviewed the assessment/plan. Chart, medications, labs, and vital signs reviewed. Dictation completed with the use of Dragon voice recognition software, prone to medical misidentification s and grammatical errors. All errors are unintentional. Although the practitioner does try to identify and correct errors, some may be present. Please do not hesitate to contact the practitioner for clarification. Total time was 30 minutes spent with greater than 50% on coordination of care and patient education. 07/04/2025 Nutritional counseling (ICD-10 - Z71.3) Rebeca is a 50-year-old female with history depression, bariatric surgery that presents for weight management follow up. Reviewd [facility] holistic and medical approach to weight loss with emphasis on lifestyle modification. 05/30/2025: Weight: 190.3, BMI: 35.9. All questions answered to the patient's satisfaction. Patient demonstrates understanding of diagnosis and treatments discussed. Follow-up at next scheduled appointment, sooner should any questions/concern s arise. Case discussed with collaborating physician Sebastian Garcia who has reviewed the assessment/plan. Chart, medications, labs, and vital signs reviewed. Dictation completed with the use of [employer] voice recognition software, prone to medical misidentification s and grammatical errors. All errors are unintentional. Although the practitioner does try to identify and correct errors, some may be present. Please do not hesitate to contact the practitioner for clarification. Total time was 30 minutes spent with greater than 50% on coordination of care and patient education. 07/04/2025 Encounter for examination of blood pressure without abnormal findings (ICD-10 - Z01.30) Rebeca is a 50-year-old female with history depression, bariatric surgery that presents for weight management follow up. Reviewd [facility] holistic and medical approach to weight loss with emphasis on lifestyle modification. 05/30/2025: Weight: 190.3, BMI: 35.9. All questions answered to the patient's satisfaction. Patient demonstrates understanding of diagnosis and treatments discussed. Follow-up at next scheduled appointment, sooner should any questions/concern s arise. Case discussed with collaborating physician Sebastian Garcia who has reviewed the assessment/plan. Chart, medications, labs, and vital signs reviewed. Dictation completed with the use of Dragon voice recognition software, prone to medical misidentification s and grammatical errors. All errors are unintentional. Although the practitioner does try to identify and correct errors, some may be present. Please do not hesitate to contact the practitioner for clarification. Total time was 30 minutes spent with greater than 50% on coordination of care and patient education. Plan Of Treatment Medication Medication Name Sig Start Date Stop Date Notes Zepbound 2.5 MG/0.5ML Solution Auto-injector Inject 2.5mg Subcutaneous once weekly; Duration: 30 days History and Physical Notes * Physical Examination Category Sub-Category Detail Notes Section Note s General: Age appropriate, well-appearing 50-year-old female in no acute distress, speaking in full sentences without respiratory compromise. Well groomed, well developed. Alert, interactive. Skin: Warm, dry and intact. No lesions/rashes/erythema. HEENT: Normocephalic/atraumatic. CV: RRR. Lungs: Clear to auscultation bilaterally. Neuro: CN II-XII grossly intact. Steady gait with non-assisted ambulation observed. Psych: Stable mood and affect. Progress Notes * Rebeca FRANCOISDOB:1975 (50 yo F)Acc No.[id number]:07/04/2025 Patient: Rebeca Agarwal Provider: Feliz SERRA PA-C :1975 A ge:50 Y S ex:Female Date:07/04/2025 Address:[address] [place], [place] [phone] Pcp:KAMALA PONCE Subjective: * Chief Complaints: * HPI: C onstitutional: Rebeca is a 49-year-old female with history depression, bariatric surgery that presents for weight management follow up. Currently taking Zepbound 2.5 mg SC weekly with compliance. Reports adequate appetite suppression. Denies the presence of side effects including nausea, vomiting, constipation, or abdominal pain. 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 Breakfast is typically raisin toast or a doughnut. Lunch is typically a salad or leftovers from the night before. Dinner consist of a protein, veggie, and carb/starch. Water intake is good, drinks 40-80 ounces/day. Physical activity is limited - struggling with motivation and energy. * ROS: A ll Other Systems: Review of Systems (ROS) A ll others negative except those mentioned in HPI. * Medications: T akingZepbound 2.5 MG/0.5ML Solution Auto-injector Inject 2.5mg Subcutaneous once weekly Taking Zepbound 2.5 MG/0.5ML Solution Auto-injector Inject 2.5mg Subcutaneous once weekly Not-TakinghydrOXYzine HCl 25 MG Tablet 1 tablet as needed Oral Once a day Clobetasol Propionate 0.05 % Cream External valACYclovir HCl 1 GM Tablet TAKE 2 TABLETS (2000 MG) BY MOUTH ONCE Oral Not-Taking hydrOXYzine HCl 25 MG Tablet 1 tablet as needed Oral Once a day Not-Taking Clobetasol Propionate 0.05 % Cream External Not-Taking valACYclovir HCl 1 GM Tablet TAKE 2 TABLETS (2000 MG) BY MOUTH ONCE Oral Objective: * Physical Examination: G eneral: Age appropriate, well-appearing 50-year-old female in no acute distress, speaking in full sentences without respiratory compromise. Well groomed, well developed. Alert, interactive. Skin: Warm, dry and intact. No lesions/rashes/erythema. HEENT: Normocephalic/atraumatic. CV: RRR. Lungs: Clear to auscultation bilaterally. Neuro: CN II-XII grossly intact. Steady gait with non-assisted ambulation observed. Psych: Stable mood and affect. Assessment: * Assessment: 1. O besity (BMI 30-39.9) - E66.9 (Primary) 2 . B VT 35.0-35.9,adult - Z68.35 3 . H istory of bariatric surgery - Z98.84 4 . N utritional counseling - Z71.3 5 . E ncounter for examination of blood pressure without abnormal findings - Z01.30 Rebeca is a 50-year-old femal e with history depression, bariatric surgery that presents for weight management follow up. Reviewd [facility] and medical approach to weight loss with emphasis on lifestyle modification. 05/30/2025: Weight: 190.3, BMI: 35.9. All questions answered to the patient's satisfaction. Patient demonstrates understanding of diagnosis and treatments discussed. Follow-up at next scheduled appointment, sooner should any questions/concerns arise. Case discussed with collaborating physician Sebastian Garcia who has reviewed the assessment/plan. Chart, medications, labs, and vital signs reviewed. Dictation completed with the use of [employer] voice recognition software, prone to medical misidentifications and grammatical errors. All errors are unintentional. Although the practitioner does try to identify and correct errors, some may be present. Please do not hesitate to contact the practitioner for clarification. Total time was 30 minutes spent with greater than 50% on coordination of care and patient education. Plan: * Treatment: * Procedure Codes: 9 9199 NO SHOW OFFICE VISIT Billing Information: * Procedure Codes: 36572 NO SHOW OFFICE VISIT. * Electronic signature of KEO SERRA PA-C on 11/14/2025 at 08:32 PM EST Sign off status: Pending * Provider: Feliz SERRA PA-C Date: 0 07/04/2025 Generated for Gabriella nance/Gordo/Denise on: 1 01/15/2025 08:32 PM EST
--- NOTE | ~2025-11-14 | CT_ITS ---
EXAMINATION: CT CHEST WITHOUT CONTRAST CLINICAL INFORMATION: Bilateral rib pain, status post hugging.. Concern for fracture. COMPARISON: None available. TECHNIQUE: Multidetector volumetric CT imaging of the chest was done. Axial MIP volume rendering provided. Sagittal and coronal reformatted images were obtained. This CT examination was performed using dose optimization techniques as appropriate, variously including the following: *Automated exposure control *Adjustment of mA and/or kV according to patient size (this includes techniques or standardized protocols for targeted exams where dose is matched to indication/reason for exam; i.e. extremities or head) *Use of iterative reconstruction technique FINDINGS: LUNGS: Trachea and central airway are patent. Linear opacities in bilateral lower lungs, probably atelectasis. 3 mm nodule right upper lobe (6:62). MEDIASTINUM: No suspicious finding in the partially visualized thyroid. No mediastinal or hilar lymphadenopathy. Normal heart size. No pericardial effusion. Esophagus appears unremarkable. CORONARY ARTERY CALCIFICATION: None visualized on this study. PLEURA: There is no pleural effusion. No pleural mass or thickening. AXILLA: No lymphadenopathy. CHEST WALL: Bilateral breast implants.. UPPER ABDOMEN: Status postcholecystectomy. Evidence of prior gastric surgery. Small nonobstructing calculi in bilateral kidneys. Fullness of the right adrenal gland, measuring 1.4 cm craniocaudal, Hounsfield measurements -6. This could reflect an adrenal nodule, with Hounsfield measurements suggestive of a lipid rich adenoma. OSSEOUS STRUCTURES: No acute displaced rib fractures identified. No destructive bony lesion is seen. CT/CT chest wo IV con IMPRESSION: * Bibasilar opacities suggesting atelectasis. No evidence of confluent airspace disease otherwise. *Right upper lobe 3 mm pulmonary nodule. According to the UPDATED 2017 Fleischner Society recommendations, the advised follow-up imaging for solid nodules < 6 mm is: LOW RISK PATIENT: No routine follow-up. HIGH RISK PATIENT: Optional CT at 12 months. * No acute displaced rib fractures identified. * Fullness of the right adrenal gland, possible 1.4 cm adrenal nodule. Hounsfield measurements suggestive of a nonaggressive process such as a lipid rich adenoma. Fleischner guidelines were followed. Electronically signed by: Mitchel Ibarra MD 11/14/2025 01:42 PM [facility]
[2025-11-14 11:29] VITALS: BP 133/89; PULSE 84; RESP 16; TEMP 36.6; O2SAT 99; BMI 29.3
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
[2025-11-14 13:52] VITALS: BP 127/96; PULSE 82; RESP 20; TEMP 37; O2SAT 98
[2025-11-14] MEDS: Lidocaine 4 % Patch ADH..PATCH 1 PATCH TRANSDERMA (14:06)
[2025-11-14 14:34] VITALS: BP 127/96; PULSE 82; RESP 20; TEMP 37; O2SAT 98
--- OUTSIDE RECORDS SUMMARY | 2025-11-14 20:32 | XMS_ITS | Data Portability ---
Author Organization [facility], [address] Address [address] [place] [address] Assessment No assessment recorded. Plan of Treatment Reminders Order Date Submit Date Provider Last Modified By Organization Details Last Modified Time Details Appointments None recorded. Lab None recorded. Referral emergency medicine referral 2023 024 [email or web address] Not available 20:15:10 Procedures None recorded. Surgeries None recorded. Imaging None recorded. Medication Orders None recorded. Patient TargetsNo targets recorded. Patient Instructions Encounter Date Encounter Id Patient Instructions Last Modified By Organization Details Last Modified Time 08/20/2024 [id number] dizziness: care instructions [email or web address] Not available 08/20/2024 19:50:08 palpitations: ca re instructions [email or web address] Not available 08/20/2024 19:50:08 Based on your [...] cleared by them to eat or drink. [email or web address] Not available 09/04/2024 07:42:40 Reason for Referral Emergency Medicine Referral for Electrocardiogram abnormal Referring Physician: Barbara Nogueira, Urgent Care, Encounter Date: 08/20/2024 Results Created Date Observation Date Name Description Value Unit Range Abnormal Flag Note LastModifiedBy Organization Detail LastModifiedTime 08/20/20 24 rhyth m EKG, 1-3 leads No observ ation record ed. [email or web address] Not Available 08/20 19:43:48 Result Notes None [...] Name and Address Organization Details Recorded Time 135814 morphine medicatio n Not available Not available [...] weight Body mass index (BMI) Oxygen saturation Pain severity - 0-10 verbal numeric rating [Score] - Reported Heart rate Respiratory rate Body temperature Systolic And Diastolic Provider Name and Address Organization Details Last Updated DateTime 4 157.48 cm 80511.3 7 g 34.4 kg/m2 100 % 10 91 /min 21 /min 98.5 [degF] 119/78 mm[Hg] Cielo Perez PA - [facility] 4 19:11:45 Social History Question Answer Notes LastModified by Organizat ion Details LastModified Time Tobacco Smoking Status Never Smoker Cielomodesto vo PA - [facility] 08/20/2024 19:15:41 Have You Had A Flu Shot This Season? No Information not available 08/20/2024 If No, Would You Like A Flu Shot Today? No [email or web address] Information not available 08/20/2024 What Is Your Relationship Status? [email or web address] Information not available 08/20/2024 Have You Recently Traveled Abroad? No [email or web address] Information not available 08/20/2024 Sex: Unknown Functional Status Question Answer Note LastModified by Organizat ion Details LastModified Time Do you use any illicit or recreational drugs? No [email or web address] Information not available 08/20/2024 Do you or have you ever used any other forms of tobacco or nicotine? No [email or web address] Information not available 08/20/2024 Are you currently employed? Yes [email or web address] Information not available 08/20/2024 Mental Status None recorded. Family History Nothing Reported. Medical History No medical history recorded. Gynecological HistoryNo gynecological history recorded. Obstetrics History GPAL:G 0 P 0 0 0 0 Past Encounters Encounter ID Performer Location Encounter Start Date Encounter Closed Date Diagnosis/Indication Diagnosis SNOMED-CT Code Diagnosis ICD10 Code Diagnosis IMO Codes Diagnosis Note [id number] [address] [place] [address] 09/22/2021 09:08:16 09/22/2021 10:50:27 [id number] [place] [address] [address] 07/11/2023 14:53:30 07/11/2023 15:16:58 History and physical examination, occupation 804517874 Z02.1 [id number] [place]IRA [place] [address] [address] 08/20/2024 18:57:21 08/20/2024 20:15:10 Chest pain 56019842 R07.9 Pounding heart 821453564 R00.2 Electrocar diogram abnormal 499645687 R94.31 Health Concerns Section Related Observation LastModified by Organization Detai ls LastModified Time None Recorded Concern Status LastModified by Organization Details LastModified Time None Recorded Advance Directives Directive None Recorded Payers Insurance Date Sequence Insurance Name Policy Number Policy Hughes Covered Member ID Hughes Member ID Guarantor Name 08/20/2024 OC-ESCREEN Rebeca Francois POAH POAH Rebeca Francois 09/07/2024 1 [facility] (HMO) [id number] Rebeca Francois [id number] Rebeca Francois 09/07/2024 2 [facility] (MEDICAID HMO) PARRIS Rogers [id number] Rebeca Francois Notes Date Note Type Note [...] or toxic exposure. BARBARA NOGUEIRA MD [address] [facility] [place], [address], PA - [facility] 09/04/2024 07:43:31 OBGyn Episode No OBEpisode recorded.
--- OUTSIDE RECORDS SUMMARY | 2025-11-14 20:32 | XMS_ITS | Patient Health Record ---
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 [employer] Material Name Role Phone KAMALA PONCE Primary Care Provider Unaute MARCUSNAKUL BALDWIN Unavailable [phone] Allergies Allergen (clinical drug ingredient) Drug/Non Drug [...] % Cream External; Duration: 30 Days Not-Taking Social History Section Notes: Tob: Denies Etoh: Social Drugs: Denies Problems Problem Type SNOMED Code ICD Code Onset Dates Problem Status W/U Status Risk Notes Problem Obesity (888673555) Obesity (BMI 30-39.9) (E66.9) Active confirmed Problem Obese class II (5523040315048 05) BMI 35.0-35.9,adul t (Z68.35) Active confirmed Problem History of bariatric surgery (097621606) History of bariatric surgery (Z98.84) Active confirmed Vital Signs Heart Rate 100 /min 05/30/2025 Oximetry 98 % 05/30/2025 Blood pressure diastolic 78 mm Hg 05/30/2025 Height 61 in 05/30/2025 Blood pressure systolic 114 mm Hg 05/30/2025 Weight 190.3 lbs 05/30/2025 BMI 35.95 kg/m2 05/30/2025 Encounters Encounter Location Date Provider Diagnosis [facility] [address] [facility] [address] [place] [address] 07/04/2025 NAKUL SERRA Obesity (BMI 30-39.9 ) E66.9 ; BMI 35.0-35.9,adult Z68.35 ; History of bariatric surgery Z98.84 ; Nutritional counseling Z71.3 and Encounter for examination of blood pressure without abnormal findings Z01.30 [facility] [address] [facility] [address] [place] [address] 05/30/2025 NAKUL SERRA Obesity (BMI 30-39.9 ) E66.9 ; BMI 35.0-35.9,adult Z68.35 ; History of bariatric surgery Z98.84 ; Nutritional counseling Z71.3 and Encounter for examination of blood pressure without abnormal findings Z01.30 [facility] [address] [facility] [address] [place] [address] 05/30/2025 NAKUL MARCUSHAM [facility] [address] [facility] [address] [place] [address] 07/05/2025 NAKUL SERRA Assessments Encounter Date Diagnosis (ICD Code) Assessment [...] reviewed. Dictation completed with the use of Flatpebble voice recognition software, prone to medical misidentifications [...] questions/concerns arise. Case discussed with collaborating physician T. Garcia who has reviewed the assessment/plan. Chart, [...] reviewed. Dictation completed with the use of Coppertinoon voice recognition software, prone to medical misidentifications [...] reviewed. Dictation completed with the use of [employer]pe[employer] voice recognition software, prone to medical misidentifications [...] reviewed. Dictation completed with the use of [employer]peb[employer] voice recognition software, prone to medical misidentifications [...] reviewed. Dictation completed with the use of [employer]pebble voice recognition software, prone to medical misidentifications [...] reviewed. Dictation completed with the use of Flatpebble voice recognition software, prone to medical misidentifications [...] reviewed. Dictation completed with the use of Coppertinoon voice recognition software, prone to medical misidentifications [...] reviewed. Dictation completed with the use of Flatpeb[employer] voice recognition software, prone to medical misidentifications [...] Insured Coverage Start Date Coverage End Date [facility] [address] [place] [address] [phone] [id number] Rebeca Francois Self - patient is the insured Medications Administered Medication Instructions Date of Administration Dosage Notes MICC B12 INJECTION 05/30/2025 1 mL Medical (General) History Surgical History Surgery Date(Month/Year) Complete hysterectomy 12/04/2024 VSG 2016 Javier thornton 2017 Breast lift 2019 cholecystectomy 2003 Hospitalization History Reason Date(Month/Year) Ectopic pregnancies
== END 2025-11-14 14:34 | disposition home or self-care (01) ==
LOC: HO.ED 14:05
PROVIDERS: Emergency Provider Emergency Medicine; PCP Internal Medicine
DX: S20.212A Contusion of left front wall of thorax, initial encounter (principal); X58.XXXA Exposure to other specified factors, initial encounter; Y93.89 Activity, other specified; Y92.9 Unspecified place or not applicable; Y99.9 Unspecified external cause status
CPT/HCPCS: 71250; 99283; 99284

== ENCOUNTER → 2025-11-14 11:30 | Outpatient (BNV) | payer BC, SELFPAY | PROVIDERS: Emergency Provider Emergency Medicine; PCP Internal Medicine; Visit Provider Radiology Diagnostic Ultrasound | DX: R91.8 Other nonspecific abnormal finding of lung field (principal) | CPT/HCPCS: 71250 ==